=== PATIENT | female | born 2000 | race Caucasian/White ===

== ENCOUNTER 2023-12-10 11:46 | Emergency (ER) | payer BC, SELFPAY ==
[2023-12-10 11:49] VITALS: BP 109/69; PULSE 105; RESP 16; TEMP 36.7; O2SAT 100
--- NOTE | 2023-12-10 12:15 | ED.GENADUL_ITS ---
Discharge Plan Discharge Details Chief Complaint: FlankPain Primary Care Provider: Óscar Mccartney ED Provider: Óscar Mccartney Home Meds and New Rx's Prescriptions: New cefpodoxime 200 mg tablet 200 mg PO BID 10 Days Qty: 20 0RF Rx Instructions: must administer with a meal/food No Action lorazepam [Ativan] 0.5 mg tablet 0.5 mg PO BID PRN lisdexamfetamine [Vyvanse] 40 mg capsule 120 mg PO DIRECTED eszopiclone [Lunesta] 1 mg tablet 1 mg PO ONCE Discharge Instructions Instructions: Cefpodoxime HPI General Date/Time Provider Initiated Documentation: 12/10/23 11:59 . HPI Narrative: 23 year-old female presents to ED today by POV/ambulating with a chief complaint of L flank/LUQ severe pain with onset noted everyday for a month- worse with coughing. Quality described as severe tenderness, worse with movement, no radiation to chest pain, hemoptysis, tachycardia, nausea vomiting, bowel or urinary changes, endorses feeling a fullness in the left flank when her bladder is full, denies fever, denies odor or discharge, denies vaginal pain. Severity is described as severe. Palliating factors include OTC analgesics not helping. Provoking factors include nothing specific. Events leading up to the incident/Associated Symptoms: Patient endorses a history of frequent kidney infections growing up, does not take hormonal control. Patient not anticoagulated. Related Data Home Medications ?Medication ?Instructions ?Recorded ?Confirmed lisdexamfetamine 40 mg capsule 120 mg PO DIRECTED 12/04/23 12/10/23 (Vyvanse) lorazepam 0.5 mg tablet (Ativan) 0.5 mg PO BID PRN 12/04/23 12/10/23 cefpodoxime 200 mg tablet 200 mg PO BID 10 days #20 tabs 12/10/23 eszopiclone 1 mg tablet (Lunesta) 1 mg PO ONCE 12/10/23 12/10/23 Previous Rx's ?Medication ?Instructions ?Recorded cefpodoxime 200 mg tablet 200 mg PO BID 10 days #20 tabs 12/10/23 Allergies Allergy/AdvReac Type Severity Reaction Status Date / Time Sulfa (Sulfonamide Allergy Skin Rash Verified 12/10/23 11:53 Antibiotics) tramadol Allergy Nausea Verified 12/10/23 11:53 General Stated Complaint: FlankPain DOMINIQUE: 3 Review of Systems All systems reviewed & are unremarkable except as noted in HPI and below Exam Narrative Exam Narrative: GENERAL APPEARANCE: Well-nourished, non-toxic, awake and alert, atraumatic, no acute distress. SKIN: Warm, pink, dry, intact, without rashes/lesions/ulcerations. HEAD: Normocephalic, atraumatic, normal hair distribution for gender/age. EYES: Normal conjunctiva, no exudates on lids/lashes. ENT: Nares patent, no circumoral cyanosis, no facial swelling NECK: Supple, trachea midline, painless cervical ROM. LUNGS/CHEST: Lungs CTA bilaterally- no rhonchi/rales/wheezes diffusely, non- labored respirations, normal A/P diameter, symmetrical expansion, no chest wall deformity HEART (CV/PV): Regular rate and rhythm without murmur, no peripheral edema, no JVD. ABDOMEN: Soft, non-distended, no guarding, LUQ and LLQ severe exquisite tenderness with left CVA tenderness to percussion. MSK: Normal ROM, no swelling/deformity to bilateral UEs or LEs, moving all extremities without weakness, no cyanosis, spine midline without tenderness, normal curvature. NEURO: Mental Status AAOx4 - alert to person, place, time, events No facial droop, no forehead involvement. Motor: No focal weakness - strength 5/5 in bilateral UEs and LEs, proximal and distal, symmetric. Sensory: sensation intact to light touch globally. Gait normal: patient ambulated without ataxia into ED room. PSYCH: euthymic, cooperative, pleasant, appropriate speech Course Vital Signs Vital signs: Vital Signs Temperature 36.7 C 12/10/23 11:49 Pulse 105 H 12/10/23 11:49 Respiratory Rate 16 12/10/23 11:49 Blood Pressure 109/69 12/10/23 11:49 Pulse Oximetry 100 12/10/23 11:49 Temperature 36.7 C 12/10/23 11:49 Pulse 105 H 12/10/23 11:49 Respiratory Rate 16 12/10/23 11:49 Respiratory Effort Normal 12/10/23 11:52 Blood Pressure 109/69 12/10/23 11:49 Pulse Oximetry 100 12/10/23 11:49 Oxygen Delivery Method Room Air 12/10/23 11:49 Oxygen Flow Rate 0 12/10/23 11:49 Pain Level 3 12/10/23 11:49 Medical Decision Making This dictation utilizes [id number] dictation software and may contain unedited grammatical errors. 23 year-old female presents to ED today by POV/ambulating with a chief complaint of L flank/LUQ severe pain with onset noted everyday for a month- worse with coughing. Quality described as severe tenderness, worse with movement, no radiation to chest pain, hemoptysis, tachycardia, nausea vomiting, bowel or urinary changes, endorses feeling a fullness in the left flank when her bladder is full, denies fever, denies odor or discharge, denies vaginal pain. Severity is described as severe. Palliating factors include OTC analgesics not helping. Provoking factors include nothing specific. Events leading up to the incident/Associated Symptoms: Patient endorses a history of frequent kidney infections growing up, does not take hormonal control. Patients' medical history: Migraine, GERD, anxiety, history of cholecystectomy. Family and social history: Noncontributory. Pertinent exam findings / vital signs include left CVA tenderness to percussion, left upper quadrant exquisite tenderness, left lower quadrant exquisite tenderness, no Rovsing's, no referred tenderness, negative Dudley sign, benign cardiopulmonary status, neuro intact. Differential / pathologies of concern include renal colic, pyelonephritis, UTI, inflammatory bowel disease, abdominal wall muscle strain, PE. Diagnostic studies of: -CBC, CMP, D-dimer, lipase, procalcitonin, lactate, Upreg, UA, CT renal colic without contrast. -CBC is benign with no leukocytosis, no anemia -D-dimer negative, do not suspect PE -Lactate negative, procalcitonin negative-do not suspect sepsis -CMP shows normal renal function, no other acute abnormalities -Lipase negative -CT renal shows no acute abnormality --discussed with patient, she would like CT w contrast due to exquisite tenderness, added prior to sign-out Interventions of: -IV Tylenol, Toradol, Zofran, IVF. ED Course/Assessment/Plan: 23-year-old female presents with exquisite left-sided abdominal tenderness and flank pain with history of kidney infections subjectively. Her labs are very reassuring for no acute infectious etiology, she does have severe exquisite tenderness in the left abdomen and lower ribs, PE is not suspected due to low risk on Wells score and a negative D-dimer, I do suspect she has costochondritis or an abdominal wall muscle strain but the patient states this pain is severe and daily and has not abated with any rest or conservative treatments. I plan to prescribe her cefpodoxime in case she develops further flank pain especially with fever, trial of cyclobenzaprine to go, patient signed out to oncoming provider Shama Perez PA-C at time of signout a CT with contrast pending. Findings not consistent with [ ]. Disposition of [ ]. Patient verbalized understanding of the plan and return to ED criteria and engaged in shared decision making. Medical Records Medical records reviewed: Yes I reviewed the patient's medical records. Imaging Data Radiologic Study: Attestation: I personally reviewed and interpreted this imaging study as follows: Imaging: CT Scan Radiologist's impression: EXAM: CT RENAL COLIC WO CLINICAL HISTORY: L flank pain. TECHNIQUE: Imaging Protocol: Axial computed tomography images with coronal and sagittal reformatted images were created and reviewed. CONTRAST MATERIAL: Noncontrast COMPARISON: No exams were available for comparison FINDINGS: ABDOMEN: Lung Bases: Normal where visualized. Liver: Normal attenuation. No measurable mass. Gallbladder and biliary tract: Status post cholecystectomy. No radiodense calculus or dilation. Pancreas: Normal density, no calcifications or inflammatory process. Spleen: Normal. Kidneys: Normal size, contour and axis. No radiodense stones or obstructive uropathy. No masses seen. Adrenal glands: No masses seen. Abdominal Aorta: Abdominal portion non-dilated. Soft tissues: Unremarkable. PELVIS: Bladder: Symmetric distention, no gross wall thickening. No evidence of stones.No visible mass. Bowel: No obstruction or bowel wall thickening. High-density ingested material seen in cecum Reproductive: Unremarkable. Peritoneal cavity: No ascites, collection or mesenteric inflammatory response. Bones: Unremarkable for age.. IMPRESSION: Unremarkable noncontrast CT scan of the abdomen and pelvis. Lab Data Lab results reviewed: Yes I reviewed the patient's lab results. Labs: Laboratory Tests Range/Units 12/10/23 12/10/23 12/10/23 12:21 12:30 13:10 WBC (4.4-10.8) 10^3/uL 5.69 RBC (3.93-5.22) 10^6/uL 4.27 Hgb (11.2-15.7) g/dL 12.9 Hct (36.0-46.0) % 39.0 MCV (80-95) fL 91 MCH (27.0-33.0) pg 30.2 MCHC (32.0-36.0) % 33.1 RDW (11.7-14.6) % 12.8 Plt Count (130-400) 10^3/uL 196 MPV (8.0-11.0) fL 9.8 Immature Gran % % 0.2 Neutrophils % % 53.2 Lymphocytes % % 40.8 Monocytes % % 4.4 Eosinophils % % 0.7 Basophils % % 0.7 Nucleated RBC % (0.0-0.3) % 0.0 Absolute Neutrophils (1.2-6.7) 10^3/uL 3.03 Absolute Lymphocytes (1.2-3.4) 10^3/uL 2.32 Absolute Monocytes (0.1-0.8) 10^3/uL 0.25 Absolute Eosinophils (0.0-0.7) 10^3/uL 0.04 Absolute Basophils (0.0-0.2) 10^3/uL 0.04 D-Dimer (<500) ng/mlFEU VBG Lactate Cancelled 0.6 L Sodium (136-145) mmol/L 140 Potassium (3.5-5.1) mmol/L 3.5 Chloride (98-107) mmol/L 104 Carbon Dioxide (21.0-32.0) mmol/L 26.8 Anion Gap (3-11) mmol/L 9.2 BUN (7-18) mg/dL 6 L Creatinine (0.55-1.02) mg/dL 0.9 Est GFR (CKD-EPI 2020) (mL/min/1.73m2) 91.55 Glucose (74-106) mg/dL 77 Calcium (8.5-10.1) mg/dL 9.5 Total Bilirubin (0.2-1.0) mg/dL 0.54 AST (15-37) U/L 12 L ALT (14-59) U/L 14 Alkaline Phosphatase (46-116) U/L 41 L Total Protein (6.4-8.2) g/dL 7.3 Albumin (3.4-5.0) g/dL 4.5 Lipase (16-77) U/L 18 Procalcitonin ng/mL < 0.1 Urine Color (Yellow) Yellow Urine Clarity (Clear) Clear Urine pH (5-8) 5.5 Ur Specific Elliott (1.005-1.025) >= 1.030 H Urine Protein (Neg-Trace) mg/dL Trace Urine Ketones (Negative) mg/dL Negative Urine Blood (Negative) Negative Urine Nitrite (Negative) Negative Urine Bilirubin (Negative) Small H Urine Urobilinogen (Up to 0.2) mg/dL 0.2 Ur Leukocyte Esterase (Negative) Negative Urine Glucose (Negative) mg/dL Negative Range/Units 12/10/23 14:56 WBC (4.4-10.8) 10^3/uL RBC (3.93-5.22) 10^6/uL Hgb (11.2-15.7) g/dL Hct (36.0-46.0) % MCV (80-95) fL MCH (27.0-33.0) pg MCHC (32.0-36.0) % RDW (11.7-14.6) % Plt Count (130-400) 10^3/uL MPV (8.0-11.0) fL Immature Gran % % Neutrophils % % Lymphocytes % % Monocytes % % Eosinophils % % Basophils % % Nucleated RBC % (0.0-0.3) % Absolute Neutrophils (1.2-6.7) 10^3/uL Absolute Lymphocytes (1.2-3.4) 10^3/uL Absolute Monocytes (0.1-0.8) 10^3/uL Absolute Eosinophils (0.0-0.7) 10^3/uL Absolute Basophils (0.0-0.2) 10^3/uL D-Dimer (<500) ng/mlFEU 281 VBG Lactate Sodium (136-145) mmol/L Potassium (3.5-5.1) mmol/L Chloride (98-107) mmol/L Carbon Dioxide (21.0-32.0) mmol/L Anion Gap (3-11) mmol/L BUN (7-18) mg/dL Creatinine (0.55-1.02) mg/dL Est GFR (CKD-EPI 2020) (mL/min/1.73m2) Glucose (74-106) mg/dL Calcium (8.5-10.1) mg/dL Total Bilirubin (0.2-1.0) mg/dL AST (15-37) U/L ALT (14-59) U/L Alkaline Phosphatase (46-116) U/L Total Protein (6.4-8.2) g/dL Albumin (3.4-5.0) g/dL Lipase (16-77) U/L Procalcitonin ng/mL Urine Color (Yellow) Urine Clarity (Clear) Urine pH (5-8) Ur Specific Elliott (1.005-1.025) Urine Protein (Neg-Trace) mg/dL Urine Ketones (Negative) mg/dL Urine Blood (Negative) Urine Nitrite (Negative) Urine Bilirubin (Negative) Urine Urobilinogen (Up to 0.2) mg/dL Ur Leukocyte Esterase (Negative) Urine Glucose (Negative) mg/dL Quality:SDOH Health Related Social Needs: No Data to Display [facility] Medical History (Updated 12/04/23 @ 13:44 by Karrie Sagastume) Eating disorder Depressive disorder Yeast infection of the vagina Thrush Syncope and collapse Suicidal intent Pharyngitis Pain in throat Nausea Migraine Medication management Initiation of Depo Provera Generalized anxiety disorder with panic attacks GERD (gastroesophageal reflux disease) Bipolar disorder Surgical History (Updated 12/04/23 @ 13:44 by Karrie Sagastume) History of wisdom tooth extraction History of cholecystectomy Family History (Updated 12/04/23 @ 14:14 by Karrie Sagastume) Mother Depression History of heart valve repair Migraine Father Depression Sister Migraine Social History (Updated 12/04/23 @ 14:13 by Karrie Sagastume) Smoking risk assessment performed?: No Alcohol Intake: current Alcohol Intake frequency: a few times a month Substance use type: marijuana
--- NOTE | 2023-12-10 12:15 | DI.CT_ITS ---
Exam(s) CT RENAL COLIC WO EXAM: CT RENAL COLIC WO CLINICAL HISTORY: L flank pain. TECHNIQUE: Imaging Protocol: Axial computed tomography images with coronal and sagittal reformatted images were created and reviewed. CONTRAST MATERIAL: Noncontrast COMPARISON: No exams were available for comparison FINDINGS: ABDOMEN: Lung Bases: Normal where visualized. Liver: Normal attenuation. No measurable mass. Gallbladder and biliary tract: Status post cholecystectomy. No radiodense calculus or dilation. Pancreas: Normal density, no calcifications or inflammatory process. Spleen: Normal. Kidneys: Normal size, contour and axis. No radiodense stones or obstructive uropathy. No masses seen. Adrenal glands: No masses seen. Abdominal Aorta: Abdominal portion non-dilated. Soft tissues: Unremarkable. PELVIS: Bladder: Symmetric distention, no gross wall thickening. No evidence of stones.No visible mass. Bowel: No obstruction or bowel wall thickening. High-density ingested material seen in cecum Reproductive: Unremarkable. Peritoneal cavity: No ascites, collection or mesenteric inflammatory response. Bones: Unremarkable for age.. IMPRESSION: Unremarkable noncontrast CT scan of the abdomen and pelvis. RADIATION DOSE DELIVERED: Total DLP DATA REPOSITORY: All CT scans at this facility are submitted to the National Radiology Data Registry (NRDR) Dose Index Registry (DIR) with the [employer] (A[employer]). RADIATION OPTIMIZATION: All CT scans at this facility use at least one of these dose optimization te chniques: automated exposure control; mA and/or kV adjustment per patient size (includes targeted exa ms where dose is matched to clinical indication); or iterative reconstruction.
[2023-12-10 12:53] LABS: Bilirubin Small (Negative); Blood Negative (Negative); Clarity Clear (Clear); Glucose Negative (Negative); Ketones Negative (Negative); Leukocyte Esterase Negative (Negative); Nitrite Negative (Negative); Specific Gravity >= 1.030 (1.005-1.025); Urobilinogen 0.2 mg/dL (Up to 0.2); pH 5.5 (5-8)
[2023-12-10 13:29] LABS: Abs Immature Grans 0.01 10^3/uL (0.0-0.06); Absolute Basophil Count 0.04 10^3/uL (0.0-0.2); Absolute Eosinophil Count 0.04 10^3/uL (0.0-0.7); Absolute Lymphocyte Count 2.32 10^3/uL (1.2-3.4); Absolute Monocyte Count 0.25 10^3/uL (0.1-0.8); Absolute Neutrophil Count 3.03 10^3/uL (1.2-6.7); Basophils % 0.7 %; Eosinophils % 0.7 %; HGB 12.9 g/dL (11.2-15.7); Immature Grans % 0.2 %; Lymphocytes % 40.8 %; MCH 30.2 pg (27.0-33.0); MCHC 33.1 % (32.0-36.0); MCV 91 fL (80-95); MPV 9.8 fL (8.0-11.0); Monocytes % 4.4 %; Neutrophils % 53.2 %; Platelet Count 196 10^3/uL (130-400); RBC 4.27 10^6/uL (3.93-5.22); RDW 12.8 % (11.7-14.6); RDW-SD 42.7 fL; WBC 5.69 10^3/uL (4.4-10.8)
[2023-12-10 13:38] LABS: Lactate 0.6 mmol/L (0.9-1.7)
[2023-12-10] MEDS: ACETAMINOPHEN 1,000 MG/100 ML BTL 400 MG IVPB (13:48)
[2023-12-10] MEDS: Ketorolac 15 MG/ML VIAL IVP (13:48)
[2023-12-10] MEDS: Ondansetron 4 MG/2 ML VIAL IVP (13:48)
[2023-12-10 13:58] LABS: AST 12 U/L (15-37); Albumin 4.5 g/dL (3.4-5.0); Alkaline Phosphatase 41 U/L (46-116); Anion Gap 9.2 mmol/L (3-11); BUN 6 mg/dL (7-18); Bilirubin, Total 0.54 mg/dL (0.2-1.0); CO2 26.8 mmol/L (21.0-32.0); CREATININE 0.9 mg/dL (0.55-1.02); Chloride 104 mmol/L (98-107); Estimated GFR 91.55 (mL/min/1.73m2); Glucose 77 mg/dL (74-106); Lipase 18 U/L (16-77); Potassium 3.5 mmol/L (3.5-5.1); Sodium 140 mmol/L (136-145); Total Protein 7.3 g/dL (6.4-8.2)
[2023-12-10] MEDS: Normal Saline 1,000 ML 1000 ML IV (14:05)
[2023-12-10 14:16] LABS: Procalcitonin < 0.1 ng/mL
[2023-12-10 14:17] LABS: ALT 14 U/L (14-59); Calcium 9.5 mg/dL (8.5-10.1)
[2023-12-10 15:36] LABS: D-Dimer 281 ng/mlFEU (<500)
[2023-12-10 15:49] VITALS: BP 111/61; PULSE 74; RESP 16; TEMP 36.4; O2SAT 100
--- NOTE | 2023-12-10 15:53 | DI.CT_ITS ---
Exam(s) CT ABDOMEN PELVIS W EXAM: CT ABDOMEN PELVIS W CLINICAL HISTORY: LUQ tenderness; exquisite TECHNIQUE: Imaging Protocol: Axial computed tomography images with coronal and sagittal reformatted images were created and reviewed. CONTRAST MATERIAL: Intravenous: Omnipaque 350 Contrast volume:100 mL Oral: No COMPARISON: CT CT RENAL COLIC WO from 12/10/2023 FINDINGS: ABDOMEN: Lung Bases: Normal where visualized. Liver: Normal density. No measurable mass. Portal, Superior Mesenteric, and Splenic Veins: Unremarkable. Gallbladder and Biliary Tract: Status post cholecystectomy. No significant biliary ductal dilatation . Pancreas: Normal density, no abnormal calcifications or inflammatory process. Spleen: Normal. Adrenals: No masses seen. Kidneys: Normal size, contour and axis. No radiodense stones or obstructive uropathy. No masses seen. Abdominal Aorta: Abdominal portion non-dilated. Bowel: There is a question of mild wall thickening seen in the distal sigmoid colon (series 9 images 48-53. This may represent a colitis. There is no evidence of bowel obstruction. No evidence of anitha endicitis. Peritoneal Cavity: There is a trace amount of free fluid in the cul-de-sac which is likely physiologi c. No free air. Lymph Nodes: Within normal limits. Bones: Within normal limits for the patient's age. Soft Tissues: Unremarkable. PELVIS: Bladder: Symmetric distention, no gross wall thickening. Reproductive Organs: Unremarkable as visualized. Lymph Nodes: Within normal limits. Bones: Within normal limits for the patient's age. IMPRESSION: 1. No evidence of left nephrolithiasis or obstructive uropathy. 2. Normal appearance of the pancreas and spleen. 3. Question of mild wall thickening/colitis versus nondistended sigmoid colon. Please correlate clin ically. RADIATION DOSE DELIVERED: Total DLP DATA REPOSITORY: All CT scans at this facility are submitted to the National Radiology Data Registry (NRDR) Dose Index Registry (DIR) with the [employer] (ACR). RADIATION OPTIMIZATION: All CT scans at this facility use at least one of these dose optimization te chniques: automated exposure control; mA and/or kV adjustment per patient size (includes targeted exa ms where dose is matched to clinical indication); or iterative reconstruction.
[2023-12-10] MEDS: Normal Saline - Diluent 50 ML VIAL IJ (16:03)
[2023-12-10] MEDS: Omnipaque 350 MG/ML 100 ML BTL IJ (16:04)
--- NOTE | 2023-12-10 17:36 | W.EDPROG ---
Date of service: 12/10/23 Time of Service: 17:36 Medical Decision Making Care transition myself and Óscar Mccartney PA-C. Please see his initial note regarding history, presentation and exam. In brief, this is a pleasant 23-year-old female presenting today with chief complaint of abdominal pain. Patient reports this has been an ongoing issue for her for years. She has had large-volume weight loss. Patient also reports that her mental health has suffered from this but may also be a contributor to some of her abdominal upset. She reports that she has a history of anxiety, depression, borderline personality. She does have a very involved psychologist. Patient also reports that she has been referred for an upper endoscopy, this has not yet been scheduled. Patient also smokes large amount of weed daily, has been told that she has cannabinoid induced hyperemesis in the past. She reports that she has tried to stop in the past but this seems to only exacerbate her symptoms. She does find that warmth can be helpful with some of her symptoms. At the time I assumed care, CT was pending. Labs were largely unremarkable, she did have some bilirubin in her urine, unclear etiology as kidney function otherwise normal. CT reviewed by radiologist ABDOMEN: Lung Bases: Normal where visualized. Liver: Normal density. No measurable mass. Portal, Superior Mesenteric, and Splenic Veins: Unremarkable. Gallbladder and Biliary Tract: Status post cholecystectomy. No significant biliary ductal dilatation. Pancreas: Normal density, no abnormal calcifications or inflammatory process. Spleen: Normal. Adrenals: No masses seen. Kidneys: Normal size, contour and axis. No radiodense stones or obstructive uropathy. No masses seen. Abdominal Aorta: Abdominal portion non-dilated. Bowel: There is a question of mild wall thickening seen in the distal sigmoid colon (series 9 images 48-53. This may represent a colitis. There is no evidence of bowel obstruction. No evidence of appendicitis. Peritoneal Cavity: There is a trace amount of free fluid in the cul-de-sac which is likely physiologic. No free air. Lymph Nodes: Within normal limits. Bones: Within normal limits for the patient's age. Soft Tissues: Unremarkable. PELVIS: Bladder: Symmetric distention, no gross wall thickening. Reproductive Organs: Unremarkable as visualized. Lymph Nodes: Within normal limits. Bones: Within normal limits for the patient's age. IMPRESSION: 1. No evidence of left nephrolithiasis or obstructive uropathy. 2. Normal appearance of the pancreas and spleen. 3. Question of mild wall thickening/colitis versus nondistended sigmoid colon. Please correlate clinically. Her history is not consistent with a colitis, no bowel habit changes. More nausea, vomiting and epigastric/left upper quadrant discomfort. I discussed these findings with the patient. Will prescribe Zofran to help with her nausea. She was given a GI cocktail which did help her symptoms. I am hesitant to give her anything further for her known acid reflux as she is scheduled to have a upper endoscopy. I did encourage that she call the GI group tomorrow, if they are able to get her in soon, would hold off on medication intervention, particularly as this is an ongoing issue for her. However, if they advised that she is able to begin taking an antacid, I would increase her dosing. Encouraged follow-up with her primary care as well as psychology. I also discussed that she should look further into the cannabinoid induced hyperemesis that she does smoke large quantities of marijuana daily. As this is something she has struggled to quit in the past, discussed methods to help with symptoms and also encouraged that she discuss her MH with her psychologist and PCP further. Return precautions were discussed. Quality:SDOH Health Related Social Needs: No Data to Display Sign Out Sign Out Data: Sign Out Comment: Pending CT w/ contrast, likely muscular but patient is very tender, given cyclobenz to go, cefpodoxime with history- advised start it after a few days of voltaren/cyclobenz Last updated by Óscar Mccartney PA at 12/10/23 16:12 Discharge Plan Disposition Patient Disposition: Home Condition: Good Discharge Details Clinical Impression: Abdominal pain, GERD (gastroesophageal reflux disease), Bilirubinuria, Nausea & vomiting Primary Care Provider: Óscar Mccartney ED Provider: Shama Perez Home Meds and New Rx's Prescriptions: New cefpodoxime 200 mg tablet 200 mg PO BID 10 Days Qty: 20 0RF Rx Instructions: must administer with a meal/food ondansetron 4 mg tablet,disintegrating 4 mg PO Q6H PRN (Reason: nausea and vomiting) Qty: 14 0RF Continued lorazepam [Ativan] 0.5 mg tablet 0.5 mg PO BID PRN lisdexamfetamine [Vyvanse] 40 mg capsule 120 mg PO DIRECTED eszopiclone [Lunesta] 1 mg tablet 1 mg PO ONCE Discharge Instructions Instructions: Cefpodoxime, Acid Reflux, Adult and Adolescent ED, Cannabis hyperemesis syndrome Additional Instructions: Your labs and imaging are reassuring here today. The one abnormality that we did note was bilirubin in your urine, may want to discuss this further with your primary care. However, labs and kidney function are otherwise normal. As we discussed, your symptoms did improve after medication that generally targets to numbing the stomach lining. I am hopeful that your upcoming upper endoscopy will help to diagnose your chronic abdominal issues. Please call your GI group tomorrow to discuss beginning new antacid and likely timeline for having the upper endoscopy completed. If they feel that it is appropriate, you may try Carafate or increasing your antiacid medication. There is also concern that this may be associated with your cannabis use. As we discussed, please research cannabinoid induced hyperemesis further, you may find a topical abdominal cream such as capsaicin cream, which is available [id number], will help with some of your symptoms. I have also prescribed you Zofran which will help with any recurrent nausea/vomiting. Please continue to encourage hydration. You have been prescribed antibiotic by my coworker, Rosendo, in the event that you have recurrent urinary tract infection symptoms. I do not note any UTI in your labs at this time. If you develop fever/chills, increased pain, inability stay hydrated or other new/worsening symptom please seek care urgently once again. Please follow up with primary care in 2 weeks for reevaluation.
[2023-12-10] MEDS: Cyclobenzaprine 10 MG TAB, 3 TABS/BTL PO (18:19)
== END 2023-12-10 18:43 | disposition home or self-care (01) ==
PROVIDERS: Emergency Provider Physician Assistant; PCP Physician Assistant
DX: R05.9 Cough, unspecified (principal); R10.12 Left upper quadrant pain
CPT/HCPCS: 00123; 36415; 80053; 81025; 83690; 84145; 96361; 96365; 96375; 99285; 74176; 74177; 81003; 83605; 85025; 85379; J0131; J1885; J2405; J3490

== ENCOUNTER 2024-06-06 06:07 | Emergency (ER) | payer MEDICAID, SELFPAY ==
--- OUTSIDE RECORDS SUMMARY | 2024-06-06 06:12 | XMS_ITS | Encounter Summary ---
Author Organization [facility] Address [address] [place] [address] Care Team Providers Care Lithographic Press Operator Name Role Phone Yovanny Wilson MD Unavailable Unavailable Solange Desai PA-C Primary Care Provider [phone] [phone] Encounter Details Date Type Department Care Team (Late st Contact Info) Description 07/23/2023 Lab Requisition [facility] Pathology & Laboratory Medicine - [address] [address] Outr Resulting Lab, Provider Social History Tobacco Use Types Packs/Day Years Used Date Smoking Tobacco: Every Day Smokeless Tobacco: Never Interpersonal Safety Answer Date Record ed Physically Hurt Never 11/22/2019 Verbally Threaten Not on file 11/22/2019 Comments Unknown Sex and Gender Information Value Date Recorded Sex Assigned at Not on file Legal Sex Female 18:24 EST Gender Identity Female 09/29/2021 14:29 EDT Sexual Orientation Not on file documented as of this encounter Functional Status * Because of a physical, mental, or emotional condition, does this person have difficulty doing errands alone such as visiting a doctor's office or shopping? Answer Date of Assessment Author No 09/11/2016 13:47 EDT documented as of this encounter Mental Status * Because of a physical, mental, or emotional condition, does this person have serious difficulty concentrating, remembering, or making decisions? Answer Entry Date Author No 09/11/2016 13:47 EDT documented in this encounter Plan of Treatment Not on file documented as of this encounter Procedures Procedure Name Priority Date/Time Associated Diagnosis Comments RHEUMATOID FACTOR Routine 07/23/2023 13: 17 EDT documented in this encounter Results * RHEUMATOID FACTOR (07/23/2023 13:17 EDT) Rheumatoid Factor <8.6 <12.0 IU/mL 07/23/2023 22:29 EDT [facility] Blood VENOUS BLOOD / Unknown 07/23/2023 13:17 EDT 07/23/2023 21:34 EDT us Provider Outr Resulting Lab CHEMISTRY & BLOOD GA S ORDERABLES Final Result Performing Organization Address City/State/[facility] Co de Phone Number [facility] [address] [place] [phone] documented in this encounter Visit Diagnoses Not on filedocumented in this encounter Care Teams Lithographic Press Operator Relationship Specialty Start Date End Date Solange Desai PA-C [address] [place] [address] PCP - General Family Medicine - Primary Care 09/29/21 Yovanny Wilson MD 09/07/16 documented as of this encounter
--- OUTSIDE RECORDS SUMMARY | 2024-06-06 06:12 | XMS_ITS | Referral Summary ---
Author Organization [facility] Address [address] [place] [address] Care Team Providers Care Conference Organizer Name Role Phone Yovanny Wilson MD Unavailable Unavailable Solange Desai PA-C Primary Care Provider [phone] [phone] Encounters Date Type Department Care Team Description 05/07/2024 Lab Requisition [facility] Pathology & Laboratory [address] [address] Outr Resulting Lab, Provider 04/28/2024 Lab Requisition [facility] Pathology & Laboratory [facility] [address] [place] [address] Outr Resulting Lab, Provider from Last 3 Months Allergies Active Allergy Reactions Criticality Noted Date Comments Haloperidol Lactate Anxiety 09/29/2021 Akathisia that improved with diphenhydramine Sulfa (Sulfonamide Antibiotics) 09/11/2016 Medications SUMAtriptan (IMITREX) 5 mg/actuation nasal spray Instill 5 mg into right nostril once as needed. Active ondansetron (ZOFRAN) 4 mg tablet Take 8 mg by mouth every 8 hours as needed for Nausea. Active omeprazole (PRILOSEC) 40 mg capsuleIndicatio ns:Diarrhea, unspecified type,Non-intract able vomiting with nausea, unspecified vomiting type Take 1 Cap by mouth daily. 90 Cap 2 Active Additional Information Patient not taking.Reported on 09/23/2020 doxycycline (VIBRA-TABS) 100 mg tablet Take 100 mg by mouth 2 times daily. Active promethazine (PHENERGAN) 25 mg tablet Take 25 mg by mouth every 8 hours as needed for Nausea. Active metroNIDAZOLE (FLAGYL) 250 mg tablet Take 500 mg by mouth 2 times daily. Active Active Problems Problem Noted Date Diagnosed Date Migraine without aura and wi thout status migrainosus, not intractable 09/11/2016 Blackout spell 09/11/2016 Social History Tobacco Use Types Packs/Day Years Used Date Smoking Tobacco: Every Day Smokeless Tobacco: Never Interpersonal Safety Answer Date Record ed Physically Hurt Never 11/22/2019 Verbally Threaten Not on file 11/22/2019 Comments Unknown Sex and Gender Information Value Date Recorded Sex Assigned at Not on file Legal Sex Female 18:24 EST Gender Identity Female 09/29/2021 14:29 EDT Sexual Orientation Not on file Last Filed Vital Signs Vital Sign Reading Time Taken Comments Blood Pressure 114/65 09/29/20211910 EDT Pulse 87 09/29/20211910 EDT Temperature 36.6 ??C (97.9 ??F) 09/29/2021 191 EDT Respiratory Rate 14 09/29/20211910 EDT Oxygen Saturation 96% 09/29/20211910 EDT Inhaled Oxygen Concentration - - Weight 56.6 kg (124 lb 12.8 oz) 09/29/2021 1325 EDT Height 152.4 cm (5') 09/29/2021 1325 EDT Body Mass Index 24.37 09/29/2021 1325 EDT Functional Status * Because of a physical, mental, or emotional condition, does this person have difficulty doing errands alone such as visiting a doctor's office or shopping? Answer Date of Assessment Author No 09/11/2016 13:47 EDT Mental Status * Because of a physical, mental, or emotional condition, does this person have serious difficulty concentrating, remembering, or making decisions? Answer Entry Date Author No 09/11/2016 13:47 EDT Plan of Treatment Not on file Procedures Procedure Name Priority Date/Time Associated Diagnosis Comments CHLAMYDIA/N. GONORRHOEAE AMPLIFIED NUCLEIC ACID Routine 05/07/2024 13:37 EST HEPATITIS C AB W REFLEX TO HCV RNA BY PCR Routine 04/28/2024 13:05 EST HIV 1/2 ANTIGEN AND ANTIBODY, 4TH GENERATION Routine 04/28/2024 13:05 EST SYPHILIS SEROLOGY Routine 04/28/2024 13: 05 EST RUBELLA IGG ANTIBODY Routine 04/28/2024 13:05 EST HEPATITIS B SURFACE ANTIGEN Routine 04/28/2024 13:05 EST from Last 3 Months Results * CHLAMYDIA/N. GONORRHOEAE AMPLIFIED NUCLEIC ACID (05/07/2024 13:37 EST) Neisseria gonorrhoeae Result Negative Negative 05/08/2024 11:54 EST [facility] Chlamydia trachomatis Result Negative Negative 05/08/2024 11:54 EST [facility] Swab VAGINAL STRUCTURE / Unknown 05/07/2024 13:37 EST 05/07/2024 21:38 EST us Provider Outr Resulting Lab MICROBIOLOGY - GENER AL ORDERABLES Final Result Performing Organization Address City/[facility]/ZIP Co de Phone Number [facility] [address] [place] [address] * SYPHILIS SEROLOGY (04/28/2024 13:05 EST) Syphilis Serology Negative Negative 04/29/2024 11:03 EST [facility] Blood VENOUS BLOOD / Unknown 04/28/2024 13:05 EST 04/28/2024 23:35 EST us Provider Outr Resulting Lab IMMUNOLOGY AND SEROL OGY ORDERABLES Final Result [facility] [address] [place] [address] * HEPATITIS C AB W REFLEX TO HCV RNA BY PCR (04/28/2024 13:05 EST) Hep C Antibody Negative Negative 04/29/2024 10:15 EST [facility] Blood VENOUS BLOOD / Unknown 04/28/2024 13:05 EST 04/28/2024 23:35 EST us Provider Outr Resulting Lab CHEMISTRY & BLOOD GA S ORDERABLES Final Result Performing Organization Address City/[facility]/ZIP Co de Phone Number [facility] [address] [place] [address] * RUBELLA IGG ANTIBODY (04/28/2024 13:05 EST) Rubella IgG Ab Positive See Note 04/29/2024 10:54 EST [facility] Comment:Positive for IgG ant ibodies to Rubella virus. Blood VENOUS BLOOD / Unknown 04/28/2024 13:05 EST 04/28/2024 23:35 EST us Provider Outr Resulting Lab CHEMISTRY & BLOOD GA S ORDERABLES Final Result [facility] [address] [place] [address] * HEPATITIS B SURFACE ANTIGEN (04/28/2024 13:05 EST) Hep B Surface Ag Negative Negative 04/29/2024 9:45 EST [facility] Blood VENOUS BLOOD / Unknown 04/28/2024 13:05 EST 04/28/2024 23:35 EST us Provider Outr Resulting Lab CHEMISTRY & BLOOD GA S ORDERABLES Final Result Performing Organization Address City/[facility]/ZIP Co de Phone Number [facility] [address] [place] [address] * HIV 1/2 ANTIGEN AND ANTIBODY, 4TH GENERATION (04/28/2024 13:05 EST) HIV 1 and 2 Antibody/p24 Antigen, 4th Generation Negative Negative 04/29/2024 10:16 EST [facility] Comment:If acute HIV-1 infec tion is suspected in a high risk patient, submit plasma specimen for HIV-1 RNA quantitation test. Blood VENOUS BLOOD / Unknown 04/28/2024 13:05 EST 04/28/2024 23:35 EST Narrative [facility] - 04/29/2024 10:16 EST Fourth Generation assay performed on the Siemens Centaur XPT. us Provider Outr Resulting Lab IMMUNOLOGY AND SEROL OGY ORDERABLES Final Result [facility] [address] [place] [address] from Last 3 Months [place] Care Teams Conference Organizer Relationship Specialty Start Date End Date Solange Desai PA-C [address] [place] [address] PCP - General Family Medicine - Primary Care 09/29/21 Yovanny Wilson MD 09/07/16
--- OUTSIDE RECORDS SUMMARY | 2024-06-06 06:12 | XMS_ITS | Encounter Summary ---
Author Organization [facility] Address [address] [place] [address] Care Team Providers Care Landing Signal Officer Name Role Phone Yovanny Wilson MD Unavailable Unavailable Solange Desai PA-C Primary Care Provider [phone] Encounter Details Date Type Department Care Team (Late st Contact Info) Description 04/28/2024 Lab Requisition [facility] Pathology & Laboratory Medicine - [address] [address] Outr Resulting Lab, Provider Social History Tobacco [...] Procedure Name Priority Date/Time Associated Diagnosis Comments SYPHILIS SEROLOGY Routine 04/28/2024 13: 05 EST HEPATITIS C AB W REFLEX TO HCV RNA BY PCR Routine 04/28/2024 13:05 EST RUBELLA IGG ANTIBODY Routine 04/28/2024 13:05 EST HEPATITIS B SURFACE ANTIGEN Routine 04/28/2024 13:05 EST HIV 1/2 ANTIGEN AND ANTIBODY, 4TH GENERATION Routine 04/28/2024 13:05 EST documented in this encounter Results * HEPATITIS C AB W REFLEX TO HCV RNA BY PCR (04/28/2024 13:05 EST) Hep C Antibody Negative Negative 04/29/2024 10:15 EST [facility] Blood VENOUS BLOOD / Unknown 04/28/2024 13:05 EST 04/28/2024 23:35 EST us Provider Outr Resulting Lab CHEMISTRY & BLOOD GA S ORDERABLES Final Result [facility] [address] [place] [address] * HIV 1/2 ANTIGEN AND ANTIBODY, 4TH GENERATION (04/28/2024 13:05 EST) HIV 1 and 2 Antibody/p24 Antigen, 4th Generation Negative Negative 04/29/2024 10:16 EST [facility] Comment:If acute HIV-1 infec tion is suspected in a high risk patient, submit plasma specimen for HIV-1 RNA quantitation test. Blood VENOUS BLOOD / Unknown 04/28/2024 13:05 EST 04/28/2024 23:35 EST Narrative [facility] - 04/29/2024 10:16 EST Fourth Generation assay performed on the Siemens Centaur XPT. us Provider Outr Resulting Lab IMMUNOLOGY AND SEROL OGY ORDERABLES Final Result [facility] [address] [place] [address] * SYPHILIS SEROLOGY (04/28/2024 13:05 EST) Syphilis Serology Negative Negative 04/29/2024 11:03 EST [facility] Blood VENOUS BLOOD / Unknown 04/28/2024 13:05 EST 04/28/2024 23:35 EST us Provider Outr Resulting Lab IMMUNOLOGY AND SEROL OGY ORDERABLES Final Result Performing Organization Address [facility]/ZIP Co de Phone Number [facility] [address] [place], [place] [phone] * RUBELLA IGG ANTIBODY (04/28/2024 13:05 EST) Rubella IgG Ab Positive See Note 04/29/2024 10:54 EST [facility] Comment:Positive for IgG ant ibodies to Rubella virus. Blood VENOUS BLOOD / Unknown 04/28/2024 13:05 EST 04/28/2024 23:35 EST us Provider Outr Resulting Lab CHEMISTRY & BLOOD GA S ORDERABLES Final Result Performing Organization Address [facility]/ZIP Co de Phone Number [facility] [address] [place] [id number] * HEPATITIS B SURFACE ANTIGEN (04/28/2024 13:05 EST) Hep B Surface Ag Negative Negative 04/29/2024 9:45 EST [facility] Blood VENOUS BLOOD / Unknown 04/28/2024 13:05 EST 04/28/2024 23:35 EST us Provider Outr Resulting Lab CHEMISTRY & BLOOD GA S ORDERABLES Final Result Performing Organization Address City/[facility]/ZIP Co de Phone Number [facility] [address] [place] [address] documented in this encounter Visit Diagnoses Not on filedocumented in this encounter Care Teams Landing Signal Officer Relationship Specialty Start Date End Date Solange Desai PA-C [address] [place] [address] PCP - General Family Medicine - Primary Care 09/29/21 Yovanny Wilson MD 09/07/16 documented as of this encounter
--- OUTSIDE RECORDS SUMMARY | 2024-06-06 06:12 | XMS_ITS | Clinical Summary ---
Author Organization [facility] Address [address] [place] [address] Care Team Providers Care Collections Representative Name Role Phone Yovanny Wilson MD Unavailable Unavailable Solange Desai PA-C Primary Care Provider [phone] Allergies Active Allergy Reactions Criticality Noted Date [...] migrainosus, not intractable 09/11/2016 Blackout spell 09/11/2016 Encounters Date Type Department Care Team Description 05/07/2024 Lab Requisition [facility] Pathology & Laboratory [address] [address] Outr Resulting Lab, Provider 04/28/2024 Lab Requisition [facility] Pathology & Laboratory [address] [address] Outr Resulting Lab, Provider from Last 3 Months Social History Tobacco Use Types Packs/Day Years Used Date Smoking Tobacco: Every Day Smokeless Tobacco: Never Interpersonal Safety Answer Date Record ed Physically Hurt Never 11/22/2019 Verbally Threaten Not on file 11/22/2019 Comments Unknown Sex and Gender Information Value Date Recorded Sex Assigned at Not on file Legal Sex Female 18:24 EST Gender Identity Female 09/29/2021 14:29 EDT Sexual Orientation Not on file Obstetrics History Last Filed Vital Signs Vital Sign Reading Time Taken Comments Blood Pressure 114/65 09/29/20211910 EDT Pulse 87 09/29/2021 191 EDT Temperature 36.6 ??C (97.9 ??F) 09/29/2021 191 EDT Respiratory Rate 14 09/29/2021 191 EDT Oxygen Saturation 96% 09/29/20211910 EDT Inhaled Oxygen Concentration - - Weight 56.6 kg (124 lb 12.8 oz) 09/29/2021 1325 EDT Height 152.4 cm (5') 09/29/2021 1325 EDT Body Mass Index 24.37 09/29/2021 1325 EDT Plan of Treatment Health Maintenance Due Date Last Done Comments Pneumococcal Immunization (1 of 2 - PCV) 11/12/2005 Hepatitis B Vaccine (1 of 3 - 19+ 3-dose series) 11/12 COVID-19 Vaccine ( season) 2023 Hepatitis C Screen Completed 04/28/2024 Procedures Procedure Name Priority Date/Time Associated Diagnosis [...] gonorrhoeae Result Negative Negative 05/08/2024 11:54 EST [facility] Chlamydia trachomatis Result Negative Negative 05/08/2024 11:54 EST [facility] Swab VAGINAL STRUCTURE / Unknown 05/07/2024 13:37 EST 05/07/2024 21:38 EST us Provider Outr Resulting Lab MICROBIOLOGY - GENER AL ORDERABLES Final Result Performing Organization Address City/[facility]/ZIP Co de Phone Number [facility] [address] [place] [address] * SYPHILIS SEROLOGY (04/28/2024 13:05 EST) Syphilis Serology Negative Negative 04/29/2024 11:03 EST [facility] Blood VENOUS BLOOD / Unknown 04/28/2024 13:05 EST 04/28/2024 23:35 EST us Provider Outr Resulting Lab IMMUNOLOGY AND SEROL OGY ORDERABLES Final Result [facility] [address] [place] [address] * HEPATITIS C AB W REFLEX TO HCV RNA BY PCR (04/28/2024 13:05 EST) Hep C Antibody Negative Negative 04/29/2024 10:15 EST [facility] Blood VENOUS BLOOD / Unknown 04/28/2024 13:05 EST 04/28/2024 23:35 EST us Provider Outr Resulting Lab CHEMISTRY & BLOOD GA S ORDERABLES Final Result Performing Organization Address [facility]/ZIP Co de Phone Number [facility] [address] [place], [place] [phone] * RUBELLA IGG ANTIBODY (04/28/2024 13:05 EST) Rubella IgG Ab Positive See Note 04/29/2024 10:54 EST [facility] Comment:Positive for IgG ant ibodies to Rubella virus. Blood VENOUS BLOOD / Unknown 04/28/2024 13:05 EST 04/28/2024 23:35 EST us Provider Outr Resulting Lab CHEMISTRY & BLOOD GA S ORDERABLES Final Result Performing Organization Address [facility] Co de Phone Number [facility] [address] [place] [address] * HEPATITIS B SURFACE ANTIGEN (04/28/2024 13:05 EST) Hep B Surface Ag Negative Negative 04/29/2024 9:45 EST [facility] Blood VENOUS BLOOD / Unknown 04/28/2024 13:05 EST 04/28/2024 23:35 EST us Provider Outr Resulting Lab CHEMISTRY & BLOOD GA S ORDERABLES Final Result Performing Organization Address [facility]/ZIP Co de Phone Number [facility] [address] [place], [place] [phone] * HIV 1/2 ANTIGEN AND ANTIBODY, 4TH GENERATION (04/28/2024 13:05 EST) HIV 1 and 2 Antibody/p24 Antigen, 4th Generation Negative Negative 04/29/2024 10:16 EST [facility] Comment:If acute HIV-1 infec tion is suspected in a high risk patient, submit plasma specimen for HIV-1 RNA quantitation test. Blood VENOUS BLOOD / Unknown 04/28/2024 13:05 EST 04/28/2024 23:35 EST Narrative [facility] - 04/29/2024 10:16 EST Fourth Generation assay performed on the Siemens Centaur XPT. us Provider Outr Resulting Lab IMMUNOLOGY AND SEROL OGY ORDERABLES Final Result [facility] [address] [place] [address] from Last 3 Months [place] [id number] , [place] [id number] , [place] [id number] Care Teams Collections Representative Relationship Specialty Start Date End Date Solange Desai PARandyC [address] [place] [address] PCP - General Family Medicine - Primary Care 09/29/21 Yovanny Wilson MD 09/07/16
--- OUTSIDE RECORDS SUMMARY | 2024-06-06 06:12 | XMS_ITS | Encounter Summary ---
Author Organization [facility] [place] [address] Care Team Providers Care Terminal Gauger Supervisor Name Role Phone Unavailable Primary Care Provider Unavailabl e Encounter Details Date Type Department Care Team (Late st Contact Info) Description 01/07/2024 6:30 AM EDT Ancillary Procedure Radiology Library at [facility] [place] [phone] Unknown None Social History Tobacco Use Types Packs/Day Years Used Date Smoking Tobacco: Never Assessed Sex and Gender Information Value Date Recorded Sex Assigned at Not on file Gender Identity Not on file Sexual Orientation Not on file documented as of this encounter Plan of Treatment Not on file documented as of this encounter Procedures Procedure Name Priority Date/Time Associated Diagnosis Comments FILM LIBRARY STORAGE ONLY CT ABDOMEN AND PELVIS Routine 01/07/2024 6:30 AM EDT documented in this encounter Results * Film Library- Storage Only CT Abdomen & Pelvis (01/07/2024 6:30 AM EDT) 01/22/2024 4:15 PM EDT Narrative JULIO - 01/22/2024 4:16 PM EDT This exam is auto-finalizing. It's purpose is for storage only. Unknown IMG FILM LIBRARY ORD ERABLES JULIO Delgado [place] documented in this encounter Visit Diagnoses Not on filedocumented in this encounter
--- OUTSIDE RECORDS SUMMARY | 2024-06-06 06:12 | XMS_ITS | Encounter Summary ---
Author Organization [facility] Address [address] [place] [address] Care Team Providers Care Fsr Name Role Phone Yovanny Wilson MD Unavailable Unavailable Solange Desai PA-C Primary Care Provider [phone] Encounter Details Date Type Department Care Team (Late st Contact Info) Description 01/15/2024 Lab Requisition [facility] Pathology & Laboratory Medicine - [address] [address] Outr Resulting Lab, Provider Social History Tobacco [...] Procedure Name Priority Date/Time Associated Diagnosis Comments VAGINAL CTGC AND VAGINITIS/VAGINOSIS MOLECULAR DETECTION Routine 01/15/2024 16:19 EDT documented in this encounter Results * VAGINAL CTGC AND VAGINITIS/VAGINOSIS MOLECULAR DETECTION (01/15/2024 16:19 EDT) Simin glabrata Negative Negative 01/17/2024 14:41 EDT [facility] Trichomonas Vaginalis Negative Negative 01/17/2024 14:41 EDT [facility] BV (Bacterial vaginosis) Negative Negative 01/17/2024 14:41 EDT [facility] Neisseria gonorrhoeae Result Negative Negative 01/17/2024 14:41 EDT [facility] Chlamydia trachomatis Result Negative Negative 01/17/2024 14:41 EDT [facility] Simin Species Negative Negative 14:41 EDT [facility] Swab VAGINAL STRUCTURE / Unknown 01/15/2024 16:19 EDT 01/16/2024 22:24 EDT us Provider Outr Resulting Lab MICROBIOLOGY - GENER AL ORDERABLES Final Result [facility] [address] [place], [place] [phone] documented in this encounter Visit Diagnoses Not on filedocumented in this encounter Care Teams Fsr Relationship Specialty Start Date End Date Solange Desai PA-C [address] [place] [address] PCP - General Family Medicine - Primary Care 09/29/21 Yovanny Wilson MD 09/07/16 documented as of this encounter
--- OUTSIDE RECORDS SUMMARY | 2024-06-06 06:12 | XMS_ITS | Encounter Summary ---
Author Organization [facility] [place] [address] Care Team Providers Care Psychologists Name Role Phone Unavailable Primary Care Provider Unavailabl e Encounter Details Date Type Department Care Team (Late st Contact Info) Description 01/07/2024 Interpretation Only Radiology Library at [facility] [place] [phone] Unknown None Social History Tobacco Use Types [...] AM EDT) 01/22/2024 4:15 PM EDT Narrative ANDRIY Padilla 01/22/2024 4:16 PM EDT This exam is auto-finalizing. It's purpose is for storage only. Unknown IMG FILM LIBRARY ORD ERABLES [place] documented in this encounter Visit Diagnoses Not on filedocumented in this encounter
--- OUTSIDE RECORDS SUMMARY | 2024-06-06 06:12 | XMS_ITS | Clinical Summary ---
Author Organization [facility] [place] [address] Care Team Providers Care Papier Mache' Molder Name Role Phone Sania Mahoney Primary Care Provider + Social History Tobacco Use Types Packs/Day Years Used Date Smoking Tobacco: Never Assessed Sex and Gender Information Value Date Recorded Sex Assigned at Not on file Gender Identity Not on file Sexual Orientation Not on file Plan of Treatment Health Maintenance Due Date Last Done Comments Chlamydia Screening 11/12/2014 HPV vaccine (1 - 3-dose series) 11/12/2014 HIV screen 11/12/2017 Hepatitis C Screening 11/12/2017 Hepatitis B vaccine (0-59 yrs) (1) 11/12/2018 Tetanus/Diphtheria/Pertussis Vaccines (1 - Tdap) 11/12/2018 PAP Smear 11/12/2020 Covid-19 Vaccine (3 - 2023- season) 2023, 09/21/2020 Influenza (Flu) vaccine (1 o f 1 - Influenza standard series) 12/22/2023 Care Teams Papier Mache' Molder Relationship Specialty Start Date End Date Sania Mahoney PA [address] [place] [address] [place] [address] PCP - General Internal Medicine 02/04/24
--- OUTSIDE RECORDS SUMMARY | 2024-06-06 06:12 | XMS_ITS | Encounter Summary ---
[place] [address] Care Team Providers Care Assistant Auditor Name Role Phone Sania Mahoney Primary Care Provider + Reason for Referral * Consultation (Routine) - Closed Specialty Diagnoses / Procedures Referred By Contac t Referred To Contact Gastroenterology Diagnoses Vomiting, unspecified vomiting type, unspecified whether nausea present CHRONIC N/V AND ABDM PAIN, ABNORMAL CT ABD/PEL. LIVER;INTERVAL APPEARANCE OF PERIPORTAL EDEMA. 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 Sania Mahoney PA [address] [place] [address] [place] [address] [facility] [address] [place] [address] Referral ID Status Reason Start Date Expiration Date V isits Requested Visits Authorized [id number] Closed Consult, Test & Treat PCP Updated and/or Approved 01/15/2024 07/14/2024 6 6 Encounter Details Date Type Department Care Team (Late st Contact Info) Description 02/04/2024 Transcribe Orders eDH Incoming Referrals [phone] Sania Mahoney PA [address] [place] [address] [address] [place], [place] [id number] Vomiting, unspecified vomiting type, unspecified whether nausea present Social History Tobacco Use Types Packs/Day Years Used Date Smoking Tobacco: Never Assessed Sex and Gender Information Value Date Recorded Sex Assigned at Not on file Gender Identity Not on file Sexual Orientation Not on file documented as of this encounter Plan of Treatment Scheduled Referrals Name Type Priority Associated Diagnoses Order Schedule Referral to Gastroenterology Outpatient Referral Routine Vomiting, unspecified vomiting type, unspecified whether nausea present Ordered: 02/04/2024 documented as of this encounter Visit Diagnoses Diagnosis Vomiting, unspecified vomiting type, unspecified whether nausea present documented in this encounter Care Teams Assistant Auditor Relationship Specialty Start Date End Date Sania Mahoney PA [address] [place] [address] [place] [address] PCP - General Internal Medicine 02/04/24 documented as of this encounter
--- OUTSIDE RECORDS SUMMARY | 2024-06-06 06:12 | XMS_ITS | Encounter Summary ---
Author Organization [facility] Address [address] [place] [address] Care Team Providers Care Program Technician Name Role Phone Yovanny Wilson MD Unavailable Unavailable Solange Desai PA-C Primary Care Provider [phone] Encounter Details Date Type Department Care Team (Late st Contact Info) Description 11/22/2023 Lab Requisition [facility] Pathology & Laboratory Medicine - [address] [address] Outr Resulting Lab, Provider Social History Tobacco [...] Procedure Name Priority Date/Time Associated Diagnosis Comments AMPHETAMINE CONFIRMATION PANEL Routine 11/22/2023 14:48 EDT documented in this encounter Results * (ABNORMAL) AMPHETAMINE CONFIRMATION PANEL (11/22/2023 14:48 EDT) Amphetamine Confirmation >2000(A) <100 ng/mL 11/26/2023 14:37 EDT [facility] Methamphetamine Confirmation Negative <100 ng/mL 11/26/2023 14:37 EDT [facility] Urine URINE / Unknown 11/22/2023 1 4:48 EDT 11/22/2023 21:35 EDT Narrative [facility] - 11/26/2023 14:37 EDT Testing performed by: [facility] [address] [place] [address], [facility] [address] [address] Department Secretary: [place] MD; CLIA # [id number] us Provider Outr Resulting Lab GEN LAB UNIT COLLECT ORDERABLES Final Result [facility] [address] [place] [address], [facility] [address] [place] [address], [facility] [phone] documented in this encounter Visit Diagnoses Not on filedocumented in this encounter Care Teams Program Technician Relationship Specialty Start Date End Date Solange Desai PA-C [address] [place] [address] PCP - General Family Medicine - Primary Care 09/29/21 Yovanny Wilson MD 09/07/16 documented as of this encounter
--- OUTSIDE RECORDS SUMMARY | 2024-06-06 06:12 | XMS_ITS | Encounter Summary ---
Author Organization [facility] Address [address] [place] [address] Care Team Providers Care Air Pollution Specialist Name Role Phone Yovanny Wilson MD Unavailable Unavailable Solange Desai PA-C Primary Care Provider [phone] Encounter Details Date Type Department Care Team (Late st Contact Info) Description 05/07/2024 Lab Requisition [facility] Pathology & Laboratory Medicine - [address] [address] Outr Resulting Lab, Provider Social History Tobacco [...] AMPLIFIED NUCLEIC ACID Routine 05/07/2024 13:37 EST documented in this encounter Results * CHLAMYDIA/N. GONORRHOEAE AMPLIFIED NUCLEIC ACID (05/07/2024 13:37 EST) Neisseria gonorrhoeae Result Negative Negative 05/08/2024 11:54 EST [facility] Chlamydia trachomatis Result Negative Negative 05/08/2024 11:54 EST [facility] Swab VAGINAL STRUCTURE / Unknown 05/07/2024 13:37 EST 05/07/2024 21:38 EST us Provider Outr Resulting Lab MICROBIOLOGY - GENER AL ORDERABLES Final Result [facility] [address] [place] [address] documented in this encounter Visit Diagnoses Not on filedocumented in this encounter Care Teams Air Pollution Specialist Relationship Specialty Start Date End Date Solange Desai PA-C [address] [place] [address] PCP - General Family Medicine - Primary Care 09/29/21 Yovanny Wilson MD 09/07/16 documented as of this encounter
--- OUTSIDE RECORDS SUMMARY | 2024-06-06 06:13 | XMS_ITS | Encounter Summary ---
Author Organization [facility] Address [address] [place] [address] Care Team Providers Care Gauge Checker Name Role Phone Unavailable Primary Care Provider Unavailabl e Encounter Details Date Type Department Care Team (Late st Contact Info) Description 09/19/2001 Results Only [facility] - [address] [id number] Brittany Alberto MD [address] [place] [phone] Social History Tobacco Use Types Packs/Day Years Used Date Smoking Tobacco: Never Assessed Comments Unknown Sex and Gender Information Value Date Recorded Sex Assigned at Not on file Legal Sex Female 18:24 EST Gender Identity Female 09/29/2021 14:29 EDT Sexual Orientation Not on file documented as of this encounter Plan of Treatment Not on file documented as of this encounter Procedures Procedure Name Priority Date/Time Associated Diagnosis Comments BACTERIAL CULTURE, URINE Routine 09/19/2001 14:30 EDT documented in this encounter Results * BACTERIAL CULTURE, URINE (09/19/2001 14:30 EDT) Specimen Description Urine [facility] Result Less than 10,000 CFU/ml Mixed gram positive growth [facility] Report Status Final [id number] [facility] 09/19/2001 14:3 0 EDT 09/19/2001 15:50 EDT us Brittany Alberto MD MICROBIOLOGY - GENERAL ORDERABL ES Final Result Performing Organization Address City/State/[facility] Co de Phone Number [facility] [address] [address] documented in this encounter Visit Diagnoses Not on filedocumented in this encounter
--- OUTSIDE RECORDS SUMMARY | 2024-06-06 06:13 | XMS_ITS | Encounter Summary ---
Author Organization [facility] Address [address] [place] [address] Care Team Providers Care Boring Mill Set Up Operator Vertical Name Role Phone Unavailable Primary Care Provider Unavailabl e Encounter Details Date Type Department Care Team (Late st Contact Info) Description 05/25/2005 9:23 EST - 05/25/2005 11:59 EST Hospital Encounter [facility] [address] [place] [address] Brittany Alberto MD [address] [place] [address] Discharge Disposition: Auto Discharge Social History Tobacco Use Types Packs/Day Years Used Date Smoking Tobacco: Never Assessed Comments Unknown Sex and Gender Information Value Date Recorded Sex Assigned at Not on file Legal Sex Female 18:24 EST Gender Identity Female 09/29/2021 14:29 EDT Sexual Orientation Not on file documented as of this encounter Discharge Disposition Disposition Code Departure Means Destination Auto Discharge documented in this encounter Plan of Treatment Not on file documented as of this encounter Procedures Procedure Name Priority Date/Time Associated Diagnosis Comments RAD US RETROPERITONEAL COMPLETE 05/25/2005 10:08 EST documented in this encounter Results * RAD US RETROPERITONEAL COMPLETE (05/25/2005 10:08 EST) Anatomical Region Laterality Modality Other 05/25/2005 10:0 8 EST Narrative 11/19/2008 2:15 EDT UTI RENAL / RETROPERITONEAL ULTRASOUND PEDIATRIC 02/03/06 1000 CLINICAL INFORMATION: History of UTI and vesicoureteric reflux. ??Rule out scarring, check kidney size and growth. COMPARISON: Ultrasound 04/11/04. FINDINGS: The kidneys are normal in appearance without evidence of scarring or hydronephrosis. ??The right kidney measures 7.9cm and the left kidney 7.2cm. These are at the 50th percentile in length for the patient's age. ??Review of the prior report shows that the kidneys were also at the 50th percentile and there has been interval and appropriate growth. ??The urinary bladder is within normal limits. ??Bilateral ureteral jets are noted. There is a small post void residual of 10cc. IMPRESSION: 1. Normal kidneys demonstrating appropriate interval growth compared to the prior. 2. Small post void residual. D: ??05/25/05 T: ??05/28/05 /jv Procedure Note Frank Rachel MD - 11/19/2008 UTI RENAL / RETROPERITONEAL ULTRASOUND PEDIATRIC 05/25/05 1000 CLINICAL INFORMATION: History of UTI and vesicoureteric reflux. Rule out scarring, check kidney size and growth. COMPARISON: Ultrasound 04/11/04. FINDINGS: The kidneys are normal in appearance without evidence of scarring or hydronephrosis. The right kidney measures 7.9cm and the left kidney 7.2cm. These are at the 50th percentile in length for the patient's age. Review of the prior report shows that the kidneys were also at the 50th percentile and there has been interval and appropriate growth. The urinary bladder is within normal limits. Bilateral ureteral jets are noted. There is a small post void residual of 10cc. IMPRESSION: 1. Normal kidneys demonstrating appropriate interval growth compared to the prior. 2. Small post void residual. /jv us Brittany Alberto MD IMG US ORDERABLES Final Result documented in this encounter Visit Diagnoses Not on filedocumented in this encounter
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
--- OUTSIDE RECORDS SUMMARY | 2024-06-06 06:13 | XMS_ITS | Encounter Summary ---
Author Organization [facility] Address [address] [place] [address] Care Team Providers Care Precision Agriculture Specialist Name Role Phone AgustinaGiuliana alvarez JIMENEZ Primary Care Provider [phone] Yovanny Wilson MD Unavailable Unavailable Reason for Visit * Reason Onset Date Comments Appointment Related 09/20/2016 Encounter Details Date Type Department Care Team (Late st Contact Info) Description 09/20/2016 Telephone [facility] Pediatric Neurology [facility] [address] [place], [place] [phone] Dong Swain MD [address] [place] [phone] Appointment Related Social History Tobacco Use Types Packs/Day Years [...] 09/11/2016 13:47 EDT documented in this encounter Miscellaneous Notes * Telephone Encounter - Ray, Elvira H - 09/20/2016 0837 EDT Called mom to provide MRI appointment and she stated she already had the date - October 17. documented in this encounter Plan of Treatment Not on file documented as of this encounter Visit Diagnoses Not on filedocumented in this encounter Care Teams Precision Agriculture Specialist Relationship Specialty Start Date End Date Giuliana Berrios NP [address] [place] [address] PCP - General 09/07/16 03/26/18 Yovanny Wilson MD [address] [place] [address] 09/07/16 documented as of this encounter
--- OUTSIDE RECORDS SUMMARY | 2024-06-06 06:13 | XMS_ITS | Encounter Summary ---
Author Organization [facility] Address [address] [place] [address] Care Team Providers Care Nurse Practitioner Physicians Assistant Name Role Phone Yovanny Wilson MD Unavailable Unavailable Solange Desai PA-C Primary Care Provider +1 [phone] Encounter Details Date Type Department Care Team (Late st Contact Info) Description 07/24/2022 Lab Requisition [facility] Pathology & Laboratory Medicine - [address] [address] Outr Resulting Lab, Provider Social History Tobacco [...] Associated Diagnosis Comments CHLAMYDIA/N. GONORRHOEAE AMPLIFIED NUCLEIC ACID, THINPREP Routine 07/24/2022 16:25 EDT documented in this encounter Results * CHLAMYDIA/N. GONORRHOEAE AMPLIFIED RNA, THINPREP (07/24/2022 16:25 EDT) Neisseria gonorrhoeae Result Negative Negative 07/25/2022 13:24 EDT [facility] Chlamydia trachomatis Result Negative Negative 07/25/2022 13:24 EDT [facility] Papanicolaou smear specimen (specimen) CERVIX UTERI STRUCTURE / Unknown 07/24/2022 16:25 EDT 07/25/2022 7:59 EDT us Provider Outr Resulting Lab MICROBIOLOGY - GENER AL ORDERABLES Final Result [facility] [address] [place] [address] documented in this encounter Visit Diagnoses Not on filedocumented in this encounter Care Teams Nurse Practitioner Physicians Assistant Relationship Specialty Start Date End Date Solange Desai PA-C [address] [place] [address] PCP - General Family Medicine - Primary Care 09/29/21 Yovanny Wilson MD 09/07/16 documented as of this encounter
--- OUTSIDE RECORDS SUMMARY | 2024-06-06 06:13 | XMS_ITS | Encounter Summary ---
Author Organization [facility] Address [address] [place] [address] Care Team Providers Care Global Engineering Manager Name Role Phone Yovanny Wilson MD Unavailable Unavailable Unknown, Provider MD Primary Care Provider Solange Chisholm PA-C Primary Care Provider [phone] Encounter Details Date Type Department Care Team (Late st Contact Info) Description 07/16/2020 Lab Requisition [facility] Pathology & Laboratory Medicine - [facility] [address] [place] [address] Outr Resulting Lab, Provider Social History Tobacco Use Types Packs/Day Years Used Date Smoking Tobacco: Passive Smo ke Exposure - Never Smoker Interpersonal Safety Answer Date Record ed Physically [...] Procedure Name Priority Date/Time Associated Diagnosis Comments FECAL BACTERIAL PATHOGENS BY PCR Routine 07/16/2020 13:09 EDT OVA/PARASITE EXAM Routine 07/16/2020 13: 09 EDT documented in this encounter Results * FECAL BACTERIAL PATHOGENS BY PCR (07/16/2020 13:09 EDT) Salmonella PCR Negative Negative 07/17/2020 22:05 EDT [facility] Shigella/Enteroin vasive E. coli Negative Negative 07/17/2020 22:05 EDT [facility] HN LAB CAMPYLOBACTER PCR Negative Negative 07/17/2020 22:05 EDT [facility] Shiga Toxin PCR Negative Negative 22:05 EDT [facility] Feces SPECIMEN FROM RECTUM / Unknown 07/16/2020 13:09 EDT 07/17/2020 17:49 EDT us Provider Outr Resulting Lab MICROBIOLOGY - GENER AL ORDERABLES Final Result Performing Organization Address [facility] Co de Phone Number [facility] [address] [place] [address] * OVA/PARASITE EXAM (07/16/2020 13:09 EDT) Parasite No ova and parasites seen. 07/18/2020 13:50 EDT [facility] Feces SPECIMEN FROM RECTUM / Unknown 07/16/2020 13:09 EDT 07/17/2020 17:49 EDT Narrative [facility] - 07/18/2020 13:50 EDT (If Cryptosporidium, Cyclospora, or Microsporidium are suspected, specific tests must be requested.) Single negative specimen does not rule out the possibility of a parasitic infection. us Provider Outr Resulting Lab MICROBIOLOGY - GENER AL ORDERABLES Final Result Performing Organization Address City/[facility]/ZIP Co de Phone Number [facility] [address] [place] [address] documented in this encounter Visit Diagnoses Not on filedocumented in this encounter Care Teams Global Engineering Manager Relationship Specialty Start Date End Date Unknown, Provider, PCP - General 03/27/18 09/28/21 Solange Desai, PARandyC [address] [place] [address] PCP - General Family Medicine - Primary Care 09/29/21 Yovanny Wilson MD 09/07/16 documented as of this encounter
--- OUTSIDE RECORDS SUMMARY | 2024-06-06 06:13 | XMS_ITS | Encounter Summary ---
Author Organization [facility] Address [address] [place] [address] Care Team Providers Care Still Operator Batch Or Continuous Name Role Phone Yovanny Wilson MD Unavailable Unavailable Solange Desai PA-C Primary Care Provider [phone] [phone] Encounter Details Date Type Department Care Team (Late st Contact Info) Description 02/14/2023 Lab Requisition [facility] Pathology & Laboratory Medicine - [address] [address] Outr Resulting Lab, Provider Social History Tobacco [...] Comments CHLAMYDIA/N. GONORRHOEAE AMPLIFIED NUCLEIC ACID Routine 02/14/2023 13:50 EDT documented in this encounter Results * CHLAMYDIA/N. GONORRHOEAE AMPLIFIED RNA (02/14/2023 13:50 EDT) Neisseria gonorrhoeae Result Negative Negative 02/15/2023 14:13 EDT [facility] Chlamydia trachomatis Result Negative Negative 02/15/2023 14:13 EDT [facility] Swab VAGINAL STRUCTURE / Unknown 02/14/2023 13:50 EDT 02/14/2023 22:15 EDT us Provider Outr Resulting Lab MICROBIOLOGY - GENER AL ORDERABLES Final Result [facility] [address] [place] [address] documented in this encounter Visit Diagnoses Not on filedocumented in this encounter Care Teams Still Operator Batch Or Continuous Relationship Specialty Start Date End Date Solange Desai PA-C [address] [place] [address] PCP - General Family Medicine - Primary Care 09/29/21 Yovanny Wilson MD 09/07/16 documented as of this encounter
--- OUTSIDE RECORDS SUMMARY | 2024-06-06 06:13 | XMS_ITS | Encounter Summary ---
Author Organization [facility] Address [address] [place] [address] Care Team Providers Care Plastic Dolls Mold Filler Name Role Phone AgustinaGiuliana alvarez H[employer] D[employer]ITY [employer]ESS LABORER Primary Care Provider [phone] Yovanny Wilson MD Unavailable Unavailable Encounter Details Date Type Department Care Team (Latest Contact Info) Description 10/17/2016 12:00 EDT - 10/17/2016 23:59 EDT Hospital Encounter [facility] Neurophysiology - [facility] ([address] [facility] [address]) [address] [place], [place] [id number] Unknown, Provider, MD Damien gaffney Discharge Disposition: Auto Discharge Social History Tobacco [...] 09/11/2016 13:47 EDT documented in this encounter Discharge Diagnoses Diagnosis R55 Syncope and collapse-R55[ICD-10-CM] documented in this encounter Medications at Time of Discharge ondansetron (ZOFRAN) 4 mg tablet Take 8 mg by mouth every 8 hours as needed for Nausea. SUMAtriptan (IMITREX) 5 mg/actuation nasal spray Instill 5 mg into right nostril once as needed. documented as of this encounter Discharge Disposition Disposition Code Departure Means Destination Auto Discharge Home documented in this encounter Procedure Notes * Jaciel Elliott MD PhD - 10/17/2016 1409 EDT [facility] Name: Lakisha Griffith Clinical Neurophysiology Laboratory [address] [facility] : [address] [place], [place] Date: 10/17/2016 Electroencephalogram Report Referring Physician: Dong Swain MD Study Number: [id number] Clinical Indication: 15 year old female with episodes of altered awareness, talking gibberish and headache after. seizure vs migraine. Medications: Topomax 25mg twice daily Technical Description: Standard EEG: An in-laboratory digital EEG is performed utilizing silver-silver chloride electrodesplaced according to the International 10-20 system of electrode placement. CPZ serves as the recording reference electrode. The following additional electrodes are also placed: ECG electrodes , anterior temporal electrodes The study begins at 1230 until 1312 with a total study duration of 42 minutes. During this study the following states were recorded: Wake Subject factors: Cooperative The patient and/or caregivers report:8 hours of sleep night before study; Estimated average 8 hoursof sleep Previous EEG Study? No Findings: 1. The waking cerebral background activity is characterized by a posterior dominant rhythm of 11 Hzthat is symmetric, synchronous and reactive to eye opening. Continuous low amplitude faster frequencies are symmetrically present. 2. Three minutes of hyperventillation produced no changes in the EEG. 3. Drowsiness but no stage II sleep was recorded. 4. Standard photic stimulation is unremarkable. Impression: Normal EEG. Clinical Correlation: No interictal epileptiform discharges recorded during this study to help support a diagnosis of epilepsy, though their absence does not exclude this diagnosis. Blaine Key MD PGY 3 Neurology 10/17/2016 14:09 I have reviewed the study and made corrections as needed. Jaciel Elliott MD, PhD ABPN Certified, Neurology and Clinical Neurophysiology documented in this encounter Plan of Treatment Not on file documented as of this encounter Visit Diagnoses Diagnosis Blackout spell Syncope and collapse documented in this encounter Care Teams Plastic Dolls Mold Filler Relationship Specialty Start Date End Date Giuliana Berrios NP [address] [place] [address] PCP - General 09/07/16 03/26/18 Yovanny Wilson MD [address] [place] [address] 09/07/16 documented as of this encounter
--- OUTSIDE RECORDS SUMMARY | 2024-06-06 06:13 | XMS_ITS | Encounter Summary ---
Author Organization [facility] Address [address] [place] [address] Care Team Providers Care Tool Maker Name Role Phone Yovanny Wilson MD Unavailable Unavailable Solange Desai PA-C Primary Care Provider [phone] [phone] Encounter Details Date Type Department Care Team (Late st Contact Info) Description 07/23/2023 Lab Requisition [facility] Pathology & Laboratory Medicine - [address] [address] Outr Resulting Lab, Provider Social History Tobacco [...] Procedure Name Priority Date/Time Associated Diagnosis Comments VITAMIN D (25,OH) Routine 07/23/2023 13: 17 EDT IGA Routine 07/23/2023 13:17 EDT DHEA SULFATE Routine 07/23/2023 13:17 EDT ANTI NUCLEAR AB (RADHA), IFA Routine 07/23/2023 13:17 EDT documented in this encounter Results * ANTI NUCLEAR AB (RADHA), IFA (07/23/2023 13:17 EDT) RADHA Interpretation Negative Negative 2023 12:16 EDT [facility] Comment:No titer performed, RADHA Screen is negative. Blood VENOUS BLOOD / Unknown 07/23/2023 13:17 EDT 07/23/2023 21:34 EDT Narrative [facility] - 07/24/2023 12:16 EDT Results were obtained with the INOVA NOVA Lite HEp-2 RADHA Kit by indirect immunofluorescence. us Provider Outr Resulting Lab IMMUNOLOGY AND SEROL OGY ORDERABLES Final Result Performing Organization Address City/[facility]/ZIP Co de Phone Number [facility] [address] [place] [address] * IGA (07/23/2023 13:17 EDT) IgA 120 85 - 499 mg/dL 07/24/2023 8:11 EDT [facility] Blood VENOUS BLOOD / Unknown 07/23/2023 13:17 EDT 07/23/2023 21:34 EDT us Provider Outr Resulting Lab CHEMISTRY & BLOOD GA S ORDERABLES Final Result Performing Organization Address City/[facility]/ZIP Co de Phone Number [facility] [address] [place] [address] * DHEA SULFATE (07/23/2023 13:17 EDT) DHEA Sulfate 298 134 - 407 ug/dL 07/24/2023 10:13 EDT [facility] Blood VENOUS BLOOD / Unknown 07/23/2023 13:17 EDT 07/23/2023 21:34 EDT us Provider Outr Resulting Lab CHEMISTRY & BLOOD GA S ORDERABLES Final Result Performing Organization Address City/[facility]/ZIP Co de Phone Number [facility] [address] [place] [address] * (ABNORMAL) VITAMIN D (25,OH) (07/23/2023 13:17 EDT) 25OH Vitamin D Tot 24(L) 30 - 100 ng/mL 07/24/2023 12:15 EDT [facility] Comment: Vitamin D 25,OH Interpretive Ranges: Deficiency: ??<10.0 ng/mL Insufficiency: ??10.0 - 30.0 ng/mL Sufficiency: ??30.0 - 100.0 ng/mL Toxicity: ??>100.0 ng/mL Blood VENOUS BLOOD / Unknown 07/23/2023 13:17 EDT 07/23/2023 21:34 EDT us Provider Outr Resulting Lab CHEMISTRY & BLOOD GA S ORDERABLES Final Result Performing Organization Address City/[facility] Co de Phone Number [facility] [address] [place] [address] documented in this encounter Visit Diagnoses Not on filedocumented in this encounter Care Teams Tool Maker Relationship Specialty Start Date End Date Solange Desai PA-C [address] [place] [address] PCP - General Family Medicine - Primary Care 09/29/21 Yovanny Wilson MD 09/07/16 documented as of this encounter
--- OUTSIDE RECORDS SUMMARY | 2024-06-06 06:13 | XMS_ITS | Encounter Summary ---
Author Organization [facility] Address [address] [place] [address] Care Team Providers Care Pyrometer Operator Name Role Phone Unavailable Primary Care Provider Unavailabl e Encounter Details Date Type Department Care Team (Late st Contact Info) Description 05/25/2005 Before PRISM Converted Visit (Maple) [facility] - Maple conversion [address] [place] [address] Brittany Alberto MD [address] [place] [id number] Social History Tobacco Use Types Packs/Day Years Used Date Smoking Tobacco: Never Assessed Comments Unknown Sex and Gender Information Value Date Recorded Sex Assigned at Not on file Legal Sex Female 18:24 EST Gender Identity Female 09/29/2021 14:29 EDT Sexual Orientation Not on file documented as of this encounter Progress Notes * Brittany Alberto MD - 06/22/2009 194 EST PROGRESS/FOLLOWUP NOTE- 05/25/2005 PROBLEM: Vesicoureteral reflux. SUBJECTIVE: Lakisha is here with her mother and her younger sister today. Lakisha has been doing verywell. She is in kindergarten now. She has had no symptomatic UTIs at all and she is dry day and night reliably. She has recently been seen by Dr. Singh because she had persistent vomiting and epigastric pain. Her mom was also concerned about Lakisha's growth rate and dietary intake. Dr. Singh started Lakisha on Zantac 5 ml b.i.d. and her mom feels that Lakisha has definitely improved dramatically,increasing her appetite significantly. The pain has completely resolved. Lakisha does, however, complain about the taste of the liquid Zantac. Lakisha has had some very large, hard stools lately. Her mom has attempted to treat that with juice supplements, but without too much success. PHYSICAL EXAM: Height 101.8 cm, weight 16.6 kg, blood pressure 72/44. Abdominal exam is normal. Presacral exam is normal. Lower extremity strength is normal. Renal ultrasound shows the right kidney measuring 6.9 cm, left 7.3 cm, both having shown normal growth since the last ultrasound about a year ago. ASSESSMENT: Good interval growth of both kidneys and no symptomatic urinary tract infections. Although reflux may still be present, if there are no urinary tract infections and kidneys are showing normal interval growth, there would not be necessarily an indication for surgical intervention. Constipation is an issue and may increase the risk of recurrent urinary tract infection. PLAN: 1. Start MiraLax 17 grams daily mixed with juice. 2. Low threshold for evaluation and prospective treatment of urinary tract infections should symptoms occur. 3. Return to clinic in 1 year and repeat renal ultrasound at that time. Signed by Brittany Alberto MD 05/29/2005 18:52 Shelli Alberto [facility] [id number] P Guillot, MD Brittany Alberto MD Division of Pediatric Nephrology [phone] - Brittany Alberto MD P - o2 Job ID: [id number] Document ID: [id number] cc: Yovanny Wilson MD documented in this encounter Plan of Treatment Not on file documented as of this encounter Visit Diagnoses Not on filedocumented in this encounter
--- OUTSIDE RECORDS SUMMARY | 2024-06-06 06:13 | XMS_ITS | Encounter Summary ---
Author Organization [facility] Address [address] [place] [address] Care Team Providers Care Crm Coordinator Name Role Phone Yovanny Wilson MD Unavailable Unavailable Unknown, Provider MD Primary Care Provider Solange Chisholm PA-C Primary Care Provider [phone] Encounter Details Date Type Department Care Team (Late st Contact Info) Description 09/24/[address] [facility] Pathology & Laboratory Medicine - [facility] [address] [place] [address] Outr Resulting Lab, Provider Social History Tobacco [...] Comments CHLAMYDIA/N. GONORRHOEAE AMPLIFIED NUCLEIC ACID Routine 09/24/2021 8:10 EDT documented in this encounter Results * CHLAMYDIA/N. GONORRHOEAE AMPLIFIED RNA (09/24/2021 8:10 EDT) Neisseria gonorrhoeae Result Negative Negative 09/25/2021 14:52 EDT [facility] Chlamydia trachomatis Result Negative Negative 09/25/2021 14:52 EDT [facility] Swab ENTIRE VAGINA / Unknown Swab / Unknown 09/24/2021 8:10 EDT 09/24/2021 18:30 EDT us Provider Outr Resulting Lab MICROBIOLOGY - GENER AL ORDERABLES Final Result Performing Organization Address City/State/[facility] Co de Phone Number [facility] [address] [place] [address] documented in this encounter Visit Diagnoses Not on filedocumented in this encounter Care Teams Crm Coordinator Relationship Specialty Start Date End Date Unknown, Provider, PCP - General 03/27/18 09/28/21 Solange Desai, PARandyC [address] [place] [address] PCP - General Family Medicine - Primary Care 09/29/21 Yovanny Wilson MD 09/07/16 documented as of this encounter
--- OUTSIDE RECORDS SUMMARY | 2024-06-06 06:13 | XMS_ITS | Encounter Summary ---
Author Organization [facility] Address [address] [place] [address] Care Team Providers Care Manager Neonatal Name Role Phone Yovanny Wilson MD Unavailable Unavailable Solange Desai PA-C Primary Care Provider [phone] Encounter Details Date Type Department Care Team (Late st Contact Info) Description 10/05/2021 Lab Requisition [facility] Pathology & Laboratory Medicine - [address] [address] Pratik Gong MD [address] [place] [address] Encounter for other general examination Social History Tobacco Use Types Packs/Day Years [...] Procedure Name Priority Date/Time Associated Diagnosis Comments PAP TEST Today 10/05/2021 9:36 EDT Encounter for other general examination documented in this encounter Results * PAP TEST (10/05/2021 9:36 EDT) Specimens A. Cervix and/or Endocervix , ThinPrep Imaging System with Manual Evaluation 10/10/2021 13:37 EDT [facility] Specimen Adequacy Satisfactory for Evaluation - transformation zone component present 10/10/2021 13:37 EDT [facility] General Categorization Negative for intraepithelial lesion or malignancy 10/10/2021 13:37 T [facility] Attestation . 10/10/2021 13:37 T [facility] at 1337 Clinical History See below 10/11/19 13:37 EDT [facility] Performing Lab [facility] 10/10/2021 13:37 T [facility] Scanned Images 10/10/2021 13:37 T [facility] Papanicolaou smear specimen (specimen) CERVIX UTERI STRUCTURE / Unknown 10/05/2021 9:36 EDT 10/05/2021 15:19 EDT us Pratik Gong MD PATHOLOGY ORDERABLES Final Result [facility] [address] [place] [address] documented in this encounter Visit Diagnoses Diagnosis Encounter for other general examination documented in this encounter Care Teams Manager Neonatal Relationship Specialty Start Date End Date Solange Desai PA-C [address] [place] [address] PCP - General Family Medicine - Primary Care 09/29/21 Yovanny Wilson MD 09/07/16 documented as of this encounter
--- OUTSIDE RECORDS SUMMARY | 2024-06-06 06:13 | XMS_ITS | Encounter Summary ---
Author Organization [facility] Address [address] [place] [address] Care Team Providers Care Head Screen Worker Name Role Phone Yovanny Wilson MD Unavailable Unavailable Solange Desai PA-C Primary Care Provider [phone] [phone] Encounter Details Date Type Department Care Team (Late st Contact Info) Description 05/27/2023 Lab Requisition [facility] Pathology & Laboratory Medicine - [address] [address] Outr Resulting Lab, Provider Social History Tobacco [...] Associated Diagnosis Comments AMPHETAMINE CONFIRMATION PANEL Routine 05/27/2023 15:44 EST documented in this encounter Results * (ABNORMAL) AMPHETAMINE CONFIRMATION PANEL (05/27/2023 15:44 EST) Amphetamine Confirmation 1934(A) <100 ng/mL 05/29/2023 14:15 EST [facility] Methamphetamine Confirmation Negative <100 ng/mL 05/29/2023 14:15 EST [facility] Urine URINE / Unknown 05/27/2023 1 5:44 EST 05/27/2023 22:08 EST Narrative [facility] - 05/29/2023 14:15 EST Testing performed by: [facility] [address] [place] [address], [facility] [address] [address] Administrative Officer: West Puente MD; CLIA # [id number] us Provider Outr Resulting Lab GEN LAB UNIT COLLECT ORDERABLES Final Result [facility] [address] [place] [address], [facility] [address] [place] [address], [facility] [phone] documented in this encounter Visit Diagnoses Not on filedocumented in this encounter Care Teams Head Screen Worker Relationship Specialty Start Date End Date Solange Desai PA-C [address] [place] [address] PCP - General Family Medicine - Primary Care 09/29/21 Yovanny Wilson MD 09/07/16 documented as of this encounter
--- OUTSIDE RECORDS SUMMARY | 2024-06-06 06:13 | XMS_ITS | Encounter Summary ---
Author Organization [facility] Address [address] [place] [address] Care Team Providers Care Stand Up Forklift Operator Name Role Phone Yovanny Wilson MD Unavailable Unavailable Unknown, Provider MD Primary Care Provider UnaSolange Main PA-C Primary Care Provider [phone] Encounter Details Date Type Department Care Team (Late st Contact Info) Description 05/26/2020 Lab Requisition [facility] Pathology & Laboratory Medicine - [facility] [address] [place] [address] Todd Todd MD [address] [place] [address] [id number] Encounter for other general examination Social History [...] Procedure Name Priority Date/Time Associated Diagnosis Comments SURGICAL PATHOLOGY Today 05/26/2020 12 :50 EST documented in this encounter Results * SURGICAL PATHOLOGY (05/26/2020 12:50 EST) Final Diagnosis A. GALLBLADDER, CHOLECYSTECTOMY: - Chronic cholecystitis. 05/30/2020 17:43 [facility] Attestation By the signature below, the attending physician certifies that they have 1) personally conducted a gross and/or microscopic examination of the described specimen(s), and/or personally interpreted the results of laboratory testing of the described specimen(s), and 2) personally rendered or confirmed the above diagnosis. 05/30/2020 17:43 [facility] at 1743 Clinical History Biliary dyskinesia 05/30/2020 17:43 [facility] Gross Description A. Received in formalin labelled with proper patient identification (initials P, R) and A. Gallbladder is an intact gallbladder with an attached segment of cystic duct (5.9 cm in length by 2.0 cm in diameter). A cystic duct lymph node is not present. The serosa is smooth and briggs-leon blue. The mucosa is dark green, velvety, and the wall is 0.1 cm in thickness. The cystic duct lumen is patent and measures 0.2 cm in diameter. The cystic duct margin is inked blue. There are no choleliths. Two exhibit display representative sections and the en face cystic duct margin are submitted in A1. Clinton Stanton 05/27/2020 11:54 05/30/2020 17:43 [facility] Performing Lab [facility] 05/30/2020 17:43 [facility] Scanned Images 05/30/2020 17:43 [facility] Tissue ENTIRE GALLBLADDER / Unknown 05/26/2020 12:50 EST 05/27/2020 9:41 EST us Todd Todd MD PATHOLOGY ORDERABLES Fin al Result [facility] [address] [place] [address] documented in this encounter Visit Diagnoses Diagnosis Encounter for other general examination documented in this encounter Care Teams Stand Up Forklift Operator Relationship Specialty Start Date End Date Unknown, Provider, PCP - General 03/27/18 09/28/21 Solange Desai PARandyC [address] [place] [id number] PCP - General Family Medicine - Primary Care 09/29/21 Yovanny Wilson MD 09/07/16 documented as of this encounter
--- OUTSIDE RECORDS SUMMARY | 2024-06-06 06:13 | XMS_ITS | Encounter Summary ---
Author Organization [facility] Address [address] [place] [address] Care Team Providers Care Allied Health Teacher Name Role Phone Unavailable Primary Care Provider Unavailabl e Encounter Details Date Type Department Care Team (Late st Contact Info) Description 02/16/2005 Before PRISM Converted Visit (Maple) [facility] conversion [address], [place] [id number] Jeff Hazel MD [address] [place] [id number] Social History Tobacco Use Types Packs/Day Years Used Date Smoking Tobacco: Never Assessed Comments Unknown Sex and Gender Information Value Date Recorded Sex Assigned at Not on file Legal Sex Female 18:24 EST Gender Identity Female 09/29/2021 14:29 EDT Sexual Orientation Not on file documented as of this encounter Progress Notes * Jeff Singh MD - 06/21/2009 1848 EST February 16, 2005 Yovanny Wilson MD [address] [place] [address] [place] [address] Wilson: Lakisha was seen in consultation today. As you may recall, she is a 4-year-old female who is being seen because of persistent vomiting. Lakisha is an otherwise healthy young girl who has had no medicalproblems other than some vesicoureteral reflux in the past. Approximately 5 weeks ago she began vomiting quite frequently. She did not have any other symptoms or signs at that time consistent with a gastritis or gastroenteritis. She had no fever or diarrhea. The vomiting persisted for 3 weeks untilshe was started by you on Zantac 75 mg twice a day and in less than 48 hours she was completely symptom-free and no longer vomiting. She has been maintained on the Zantac and mom has noticed that in a ddition to no longer vomiting her previously poor appetite has picked up voraciously. She has been eating much more than she ever had before, and mom is very happy in all regards. There is really no significant family medical history other than a sibling also with vesicoureteral reflux. There are no other GI ailments or complaints that are known. Review of systems is negative otherwise. She is onno other medications. She has no known drug allergies. On exam, she is very well appearing though quite small. Her weight is 15.6kg, height 99.7 cm, both of which are around the 5th percentile for her age. Blood pressure is 90/65. Her HEENT exam is within normal limits with no aphthous ulcerations, jaundice, or pallor. Her mucous membranes are pink andmoist. Her chest is clear. Heart has a regular rate and rhythm. Abdomen is soft and nontender with no organomegaly or masses. Extremities are warm and well perfused. Her anus is normally placed with no fissures or skin tags. Her neurological exam is completely intact. My impression is a 4-year-old girl previously with subclinical or silent gastroesophageal reflux. Ana Banuelos likely had an intercurrent illness such as with a virus that brought out her reflux symptomatology, and now that she is on good acid suppression, her vomiting has resolved and her appetite has improved markedly. This is likely secondary to some underlying esophagitis that was not discerned. At this time I have not recommended followup with me, but certainly if any questions or further problems arise, I would be more than happy to see them again. I would like them to continue on theZantac for at least the next several months before attempting to take her off it and see how she does. As always, I am available for questions or comments regarding hercare. Sincerely, Signed by Jeff Singh MD 02/22/2005 10:11 Jonathon Singh, [facility] [id number] A Damico, MD Jeff Singh MD Division of Pediatric Gastroenterology [phone] - Jeff Singh MD P - o6 Job ID: [id number] Document ID: [id number] cc: Yovanny Wilson MD documented in this encounter Plan of Treatment Not on file documented as of this encounter Visit Diagnoses Not on filedocumented in this encounter
--- OUTSIDE RECORDS SUMMARY | 2024-06-06 06:13 | XMS_ITS | Encounter Summary ---
Author Organization [facility] Address [address] [place] [address] Care Team Providers Care Textile Engraver Name Role Phone Yovanny Wilson MD Unavailable Unavailable Unknown, Provider Primary Care Provider Unava ilable Reason for Visit * (Routine) - Receiving Office to Obtain Authorization Specialty Diagnoses / Procedures Referred By Contze cox Referred To Contact Procedures CT OUTSIDE IMAGES BODY Unknown, Provider, MD Referral ID Status Reason Start Date Expiration Date Visits Requested Visits Authorized [id number] Receiving Office to Obtain Authorization 11/16/2019 1 1 Encounter Details Date Type Department Care Team (Late st Contact Info) Description 05/16/2018 Hospital Encounter [facility] Radiology - Main [address] [address] Social History Tobacco Use Types Packs/Day Years [...] Procedure Name Priority Date/Time Associated Diagnosis Comments CT OUTSIDE IMAGES BODY Routine 11/16/2019 13:58 EDT documented in this encounter Results * CT OUTSIDE IMAGES BODY (11/16/2019 13:58 EDT) Narrative DARIN - 11/16/2019 13:58 EDT This is a non-reportable exam. us Provider Unknown MD CARRILLO OTHER IMAGING ORDERABLES Final Result DARIN documented in this encounter Visit Diagnoses Not on filedocumented in this encounter Care Teams Textile Engraver Relationship Specialty Start Date End Date Unknown, Provider, PCP - General 03/27/18 09/28/21 Yovanny Wilosn MD 09/07/16 documented as of this encounter
--- OUTSIDE RECORDS SUMMARY | 2024-06-06 06:13 | XMS_ITS | Encounter Summary ---
Author Organization [facility] Address [address] [place] [address] Care Team Providers Care Wind Instrument Repairer Name Role Phone Yovanny Wilson MD Unavailable Unavailable Solange Desai PA-C Primary Care Provider [phone] Reason for Visit * Reason Comments Hematemesis Pt ambulatory to [facility] with chronic/ daily emesis with acute changes since Saturday. Pt says usually my vomiting is from anxiety, now my stomach hurts and I'm having blood in my vomit and dark BMs. Seen at [facility] ED on Saturday, prescribed treatment for PID, yesterday instructed by her OB to stop medication and present to ED for re-eval since STI testing was negative. No acute distress noted, afebrile. Encounter Details Date Type Department Care Team (Late st Contact Info) Description 09/29/2021 14:09 EDT - 09/29/2021 19:18 EDT Emergency [facility] Emergency Department - [address] [id number] Omid Azar MD [address] [facility], [facility], [address] [place] [address] Abdominal pain, unspecified abdominal location (Primary Dx); Hematemesis with nausea; Non-intractable vomiting with nausea, unspecified vomiting type Discharge Disposition: Home or Self Care Social History Tobacco Use Types Packs/Day Years [...] 09/29/20211910 EDT Temperature 36.6 ??C (97.9 ??F) 09/29/20211910 EDT Respiratory Rate 14 09/29/20211910 EDT Oxygen Saturation 96% 09/29/20211910 EDT Inhaled Oxygen Concentration - - Weight 56.6 kg (124 lb 12.8 oz) 09/29/2021 1325 EDT Height 152.4 cm (5') 09/29/2021 1325 EDT Body Mass Index 24.37 09/29/2021 1325 EDT documented in this encounter Functional Status * [...] 13:47 EDT documented in this encounter Discharge Instructions * Discharge Instructions* Omid Azar MD - 09/29/2021 19:05 EDT You were seen for vomiting, abdominal pain. The laboratory test, and CT scan looked okay and did not show an obvious cause for this. I would recommend taking acid blocking medications in case there is an early ulcer, or stomach irritation. You may buy these [id number] medication such as omeprazole, daily for the next 6 weeks or so. Please return if you have severe pain, unexplained fever, dehydration or other concerning symptoms. I do recommend you cut back on the marijuana use as sometimes this can make the vomiting worse. I also recommend you consider seeing a therapist or psychologist, sometimes this can be helpful. I have placed a referral to the GI team but it may take a while to get in, please call if you do not hear from them. It is also very important to see a primary care doctor in the meantime for ongoingcare. documented in this encounter Medications at Time of Discharge doxycycline (VIBRA-TABS) 100 mg tablet Take 100 mg by mouth 2 times daily. metroNIDAZOLE (FLAGYL) 250 mg tablet Take 500 mg by mouth 2 times daily. omeprazole (PRILOSEC) 40 mg capsuleIndications :Diarrhea, unspecified type,Non-intractab le vomiting with nausea, unspecified vomiting type Take 1 Cap by mouth daily. 90 Cap 2 07/07/2020 ondansetron (ZOFRAN) 4 mg tablet Take 8 mg by mouth every 8 hours as needed for Nausea. promethazine (PHENERGAN) 25 mg tablet Take 25 mg by mouth every 8 hours as needed for Nausea. SUMAtriptan (IMITREX) 5 mg/actuation nasal spray Instill 5 mg into right nostril once as needed. documented as of this encounter Discharge Disposition Disposition Code Departure Means Destination Home or Self Skilled Nursing documented in this encounter ED Notes * Tricia Alonzo RN - 09/29/2021 1638 EDT Shortly after getting Haldol, patient began feeling extremely anxious. Hyperventilating and kneeling at the edge of the bed; diaphoretic. Pulse in 120's; respirations 28. Encouraged patient to slow her breathing and Dr Azar notified. Patient given IV Benadryl and reassured; re-assessed by Dr Azar. Symptoms subsided and patient calmed down. Pulse 96; respirations 12. * Omid Azar MD - 09/29/2021 1429 EDT This patient received an evaluation and medical screening exam for emergent medical conditions at the [facility] on 09/29/2021 Chief Complaint Hematemesis (Pt ambulatory to triage with chronic/ daily emesis with acute changes since Saturday. Pt says usually my vomiting is from anxiety, now my stomach hurts and I'm having blood in my vomit and dark BMs. Seen at [facility] ED on Saturday, prescribed treatment for PID, yesterday instructed by her OB to stop medication and present to ED for re-eval since STI testing was negative. No acute distress noted, afebrile.) HPI Lakisha Griffith is a 20 y.o. female with PMH including anxiety, marijuana use who presents for evaluation of abdominal discomfort and vomiting, blood in the vomit and dark stool. She reports for the past month or more, she has been vomiting and having generalized abdominal discomfort. She sought care in the [place] emergency about 5 days ago they performed a pelvic ultrasound, and empirically began treatment for PID. Her OB after reviewed culture results which were negative, and discontinued the antibiotics, she denies vaginal discharge. She is continued to have daily vomiting, as much is 7times a day, 1 episode of emesis today, had some red blood mixed with gastric contents, she has hada few bowel movements with dark stool today. She denies persistent hematemesis or persistent stooling. She denies history of an ulcer. She has generalized abdominal discomfort now, similar to what she has had over the past month or more. She denies fevers, dysuria. She has vaginal bleeding consistent with her normal menstrual cycle currently. She smokes marijuana daily, denies alcohol use. She ishad a prior cholecystectomy. She said she feels very anxious History was provided by: The patient and her mother Patient's pertinent PMH, FH, SH were reviewed and updated PRN. ROS A 10-point review of systems was performed. The patient answered negative to all questions with theexceptions of those explicitly detailed as positives in the HPI. Pertinent negatives are also explicitly stated. Physical Exam Vital Signs Vitals Reassessment?: Yes Temp: 36.6 ??C (97.9 ??F) Temp src: Oral Pulse: 87 Resp: 14 SpO2: 96 % BP: 114/65 BP Device: BP Machine BP Patient Position: Supine BP Cuff Location: Left arm O2 Device: None (Room air) Nursing notes and vital signs were reviewed. Constitutional: Nontoxic, tearful and anxious at times Eyes: Pupils equal and reactive to light, no scleral icterus Mouth: Moist oral mucosa without apparent lesions Neck: Full ROM, no cervical LAD, supple with no meningismus Heart: RRR without murmurs, rubs, or gallops, normal radial pulses Lungs: Clear to ascultation, no respiratory distress or tachypnea Abdomen: The abdomen is soft, there is generalized mild abdominal discomfort throughout the entire abdomen without rebound or guarding. No unilateral CVA tenderness Skin: No overt rashes on exposed skin Extremities: Moving spontaneously, warm and well perfused, no edema, no calf tenderness Neuro: Grossly neurologically intact with normal speech Psych: No agitation or overt thought disorder Medical Decision Making This is a 20-year-old female who presents with generalized abdominal discomfort and a small volume hematemesis. This is most likely a Yaquelin-Clinton type tear versus gastritis or ulcer. She is well-appearing, no major risk factors for cirrhosis or varices. I will check a CBC to ensure she is not anemic. We will also check basic labs including a lipase. I will treat her symptomatically, cannabinoidhyperemesis or cyclical vomiting remains on the differential with her frequent marijuana use. If her symptoms resolve with symptomatic management, I do not think we need further imaging today. If they do not resolve I will have to consider a CT of her abdomen, to look for other causes including bowel obstruction, appendicitis, inflammatory bowel disease Her labs are reassuring, without anemia or significant electrolyte disturbance and normal LFTs. Discussed with her the option of trying Haldol which she is in favor of. Unfortunately the Haldol caused akathisia, that improved with Benadryl administration. After that episode, she did say her nausea and abdominal discomfort was better though that pain still persisted. I discussed with her, her family member at the bedside the option of CT scan versus observation at home. After informed discussionwe decided to pursue a CT scan today. The CT scan was normal. I I reviewed all the results with her, her aunt at the bedside. I am reassured by the negative results overall but she will need close follow-up. Recommended empiric PPI therapy, she has had no further bleeding since here, normal H/H I do not see an indication for an emergent endoscopy but I did place referral to gastroenterology. I also recommended cutting back on marijuana use, and considering follow-up with primary care, and a psychologist as she mentioned she has a history of an eating disorder that could be playing a role, along with her anxiety. We discussed reasons to return sooner, follow-up plan, she was discharged in stable and improved condition Prior to discharge discussed with the patient likely diagnosis, expected course, treatment plan, follow-up plan and reasons to return. <principal problem not specified> Laboratory Results Labs Reviewed COMPLETE BLOOD COUNT AND DIFFERENTIAL - Abnormal Result Value Status WBC 9.20 Final RBC 4.61 Final Hemoglobin 13.8 Final HCT 41.0 Final MCV 89 Final MCH 29.9 Final MCHC 33.7 Final RDW-CV 12.8 Final RDW-SD 42.0 Final PLT 270 Final MPV 9.2 (*) Final Neutrophils 71.5 Final Lymphocytes 23.0 Final Monocytes 4.6 Final Eosinophils 0.2 Final Basophils 0.5 Final Immature Grans 0.2 Final Absolute Neutrophils 6.57 Final Absolute Lymphocytes 2.12 Final Absolute Monocytes 0.42 Final Absolute Eosinophils 0.02 (*) Final Absolute Basophils 0.05 Final Absolute Immature Grans 0.02 Final Type of Differential: Auto Final COMPREHENSIVE METABOLIC PANEL (CMP) - Abnormal Sodium 140 Final Potassium 4.1 Final Chloride 103 Final CO2 Total 24 Final Glucose 79 Final BUN 12 Final Creatinine 0.78 Final eGFR 111 Final Total Protein 7.8 Final Albumin 5.2 (*) Final Alkaline Phosphatase 55 Final AST 33 Final ALT 21 Final Bilirubin, Total 0.6 Final Calcium 9.5 Final Albumin/Globulin Ratio 2.0 Final Anion Gap 13 Final POCT URINE DIPSTICK, CLINITEK - Abnormal Color, UA Yellow Final Clarity, UA Cloudy (*) Final Glucose, UA Negative Final Bilirubin, UA Negative Final Ketones, UA 2+ (*) Final Specific Wilson, Urine >=1.030 Final Blood, UA Negative Final pH, UA 5.5 Final Protein, UA Negative Final Urobilinogen, UA 0.2 Final Nitrite, UA Negative Final Leuk Esterase Negative Final HN LAB COMMENT (CLINITEK, UR) Test performed at Emergency Department Final LIPASE - Normal Lipase 32 Final POCT TEST, CLINITEK ORDER Narrative: The following orders were created for panel order POCT TEST, CLINITEK ORDER. Procedure Abnormality Status --------- ------ POCT TEST, CLI...[[id number]] Final result POCT CSN BARCODE URINE P...[[id number]] Final result Please view results for these tests on the individual orders. POCT CSN BARCODE URINE PREG TEST POCT URINE CLINITEK (DIPSTICK) - DOES NOT REFLEX Narrative: The following orders were created for panel order POCT URINE CLINITEK (DIPSTICK) - DOES NOT REFLEX. Procedure Abnormality Status --------- ------ POCT URINE DIPSTICK, CLI...[[id number]] Abnormal Final result POCT CSN BARCODE URINE D...[[id number]] Final result Please view results for these tests on the individual orders. POCT CSN BARCODE URINE DIPSTICK POCT TEST, CLINITEK UPT Result Negative Final HN LAB COMMENT (CLINITEK, UPT) Test performed at Emergency Department Final Data Interpretation An EKG was obtained and independently interpreted: EKG shows sinus rhythm rate of 64, no ST elevation or ST depression, incomplete right bundle branchblock pattern, no ST elevation or ST depression, QT interval is normal X-ray imaging obtained was personally reviewed and independently interpreted along with radiologist: Using care everywhere unable to obtain the imaging findings, no sonographic abnormalities of the uterus or ovaries noted on ultrasound from 09/24 CT scans and MRI reviewed by me and interpreted by the radiologist: IMPRESSION 1. No acute abnormality in the abdomen and pelvis. 2. Status post cholecystectomy. ?? Laboratory results independently reviewed, significant for: No significant electrolyte abnormality,normal CBC, urinalysis not suggestive of infection, negative urine Procedures Procedures ED Course A medical screening exam was performed. See course, as in medical decision making. She was discharged stable condition after a long period of observation, and a negative work-up in the emergency department. Recommended close follow-up. Disposition Final diagnoses: Abdominal pain, unspecified abdominal location Hematemesis with nausea Non-intractable vomiting with nausea, unspecified vomiting type Disposition decisions were made weighing risks and benefits of hospitalization vs. outpatient treatment, the risk for further decompensation, and the patient's wishes. Condition at departure from the Emergency Department: Improved documented in this encounter Plan of Treatment Not on file documented as of this encounter Procedures Procedure Name Priority Date/Time Associated Diagnosis Comments ECG REPORT - SCANNED 10/06/2021 12:[address] ABDOMEN PELVIS W CONTRAST STAT 09/29/2021 18:41 EDT POCT CSN BARCODE URINE DIPSTICK STAT 09/29/2021 16:10 EDT POCT URINE CLINITEK (DIPSTICK) - DOES NOT REFLEX STAT 09/29/2021 16:08 EDT POCT URINE DIPSTICK, CLINITEK STAT 09/29/2021 16:08 EDT EKG 12-LEAD STAT 09/29/2021 16:02 EDT POCT CSN BARCODE URINE PREG TEST STAT 09/29/2021 15:14 EDT COMPLETE BLOOD COUNT AND DIFFERENTIAL STAT 09/29/2021 15:14 EDT LIPASE STAT 09/29/2021 15:14 EDT COMPREHENSIVE METABOLIC PANEL (CMP) STAT 09/29/2021 15:14 EDT POCT TEST, CLINITEK ORDER STAT 09/29/2021 15:11 EDT POCT TEST, CLINITEK STAT 09/29/2021 15:11 EDT documented in this encounter Results * ECG REPORT - SCANNED (10/06/2021 12:05 EDT) 10/06/2021 12:0 5 EDT us Scan 2 [employer]ider PROCEDURE/MINOR SURGICAL OR DERABLES Final Result * CT ABDOMEN PELVIS W CONTRAST (09/29/2021 18:41 EDT) Anatomical Region Laterality Modality Body, Abdomen, Pelvis, Abdomen and Pelvis Computed Tomography 09/29/2021 19:0 8 EDT Impressions 09/29/2021 19:08 EDT 1. ??No acute abnormality in the abdomen and pelvis. 2. ??Status post cholecystectomy. I have personally reviewed the images and the above interpretation and agree with the findings. Narrative 09/29/2021 19:[address] ABDOMEN PELVIS W CONTRAST09/29/2021 6:37 PM Signs and Symptoms/Comments: ?? Abdominal pain including RLQ, vomiting, worsening over past week Technique: CT of the abdomen and pelvis was performed following the administration intravenous contrast; coronal and sagittal multiplanar reconstructions generated. Comparison: CT abdomen pelvis 05/16/2018 Findings: Lower chest: Lung bases are unremarkable. Hepatobiliary: No focal hepatic lesion. The gallbladder is surgically absent. No intra or extrahepatic biliary ductal dilatation. Spleen, pancreas, adrenal glands: The spleen enhances normally. The pancreas enhances normally. No pancreatic ductal dilatation. The adrenal glands are normal. Kidneys, ureters, bladder: The kidneys enhance symmetrically. No hydronephrosis or hydronephrosis or nephrolithiasis. The bladder is unremarkable. Uterus, ovaries: The uterus is normal for age. No adnexal mass. Bowel: No bowel obstruction, bowel wall thickening, or acute inflammatory change. The appendix is normal (coronal #64). Peritoneal cavity / Subperitoneal space: No free air or free fluid. Lymphovascular: The aorta is normal in course and caliber. No enlarged lymph nodes. Abdominal wall: No bowel-containing hernias. Musculoskeletal: No fracture or concerning osseous lesion. [employer]: No additional findings Procedure Note Sarah Maria MD - 09/29/2021 CT ABDOMEN PELVIS W CONTRAST09/29/2021 6:37 PM Signs and Symptoms/Comments: Abdominal pain including RLQ, vomiting, worsening over past week Technique: CT of the abdomen and pelvis was performed following the administrationintravenous contrast; coronal and sagittal multiplanar reconstructionsgenerated. Comparison: CT abdomen pelvis 05/16/2018 Findings: Lower chest: Lung bases are unremarkable. Hepatobiliary: No focal hepatic lesion. The gallbladder is surgicallyabsent. No intra or extrahepatic biliary ductal dilatation. Spleen, pancreas, adrenal glands: The spleen enhances normally. Thepancreas enhances normally. No pancreatic ductal dilatation. The adrenalglands are normal. Kidneys, ureters, bladder: The kidneys enhance symmetrically. Nohydronephrosis or hydronephrosis or nephrolithiasis. The bladder isunremarkable. Uterus, ovaries: The uterus is normal for age. No adnexal mass. Bowel: No bowel obstruction, bowel wall thickening, or acute inflammatorychange. The appendix is normal (coronal #64). Peritoneal cavity / Subperitoneal space: No free air or free fluid. Lymphovascular: The aorta is normal in course and caliber. No enlargedlymph nodes. Abdominal wall: No bowel-containing hernias. Musculoskeletal: No fracture or concerning osseous lesion. 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 No acute abnormality in the abdomen and pelvis. 2. Status post cholecystectomy. I have personally reviewed the images and the above interpretation andagree with the findings. us Omid Azar MD IMG CT ORDERABLES Final Result * POCT CSN BARCODE URINE DIPSTICK (09/29/2021 16:10 EDT) Urine URINE SPECIMEN COLLECTION, CLEAN CATCH / Unknown Urine Collect / Unknown 09/29/2021 16:10 EDT 09/29/2021 16:10 EDT us Omid Azar MD LAB INFO SERVICE AND SUPPORT & PHONE RESULT Final Result [facility] [address] [place] [address] * (ABNORMAL) POCT URINE DIPSTICK, CLINITEK (09/29/2021 16:08 EDT) Color, UA Yellow Yellow 09/29/2021 16:[address] [facility] Clarity, UA Cloudy(A) Clear 09/29/2021 16:[address] [facility] Glucose, UA Negative Negative mg/dL 09/29/2021 16:[address] [facility] Bilirubin, UA Negative Negative 09/29/2021 16:[address] [facility] Ketones, UA 2+(A) Negative mg/dL 09/29/2021 16:[address] [facility] Specific Wilson, Urine >=1.030 1.001 - 1.035 09/29/2021 16:[address] [facility] Blood, UA Negative Negative 09/29/2021 16:[address] [facility] pH, UA 5.5 <=8 09/29/2021 16:[address] [facility] Protein, UA Negative Negative mg/dL 09/29/2021 16:[address] [facility] Urobilinogen, UA 0.2 0.2 - 1.0 EU/dL 09/29/2021 16:[address] [facility] Nitrite, UA Negative Negative 09/29/2021 16:[address] [facility] Leuk Esterase Negative Negative 09/29/2021 16:[address] [facility] HN LAB COMMENT (CLINITEK, UR) Test performed at Emergency Department 09/29/2021 16:[address] [facility] Urine URINE SPECIMEN COLLECTION, CLEAN CATCH / Unknown 09/29/2021 16:08 EDT 09/29/2021 16:10 EDT us Omid Azar MD POINT OF CARE TEST ORDERABLES Final Result [facility] [address] [place] [address] * EKG 12-LEAD (09/29/2021 16:02 EDT) 09/29/2021 16:[address] [facility] - 10/06/2021 12:01 EDT ?[facility] ? Test Date: ?2021-09-29 Pat Name: ? LAKISHA GRIFFITH ?Department: ?? ED ? Room: ? WB03 Gender: ? Female ? 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 Requested By: JJ Enamorado Order Number: [id number] ? Reading MD: ?? LV JESSICA MD ? Measurements Intervals ?[place] ? Rate: ? 64 ? P: ?37 IN: ? 149 ?QRS: ?51 QRSD: ? 97 ? T: ?59 QT: ? 401 ? QTc: ?416 ? Interpretive Statements SINUS RHYTHM WITH SINUS ARRHYTHMIA INDETERMINATE AXIS INCOMPLETE RIGHT BUNDLE BRANCH BLOCK Compared to ECG 06/04/2000 16:29:05 Indeterminate axis now present I reviewed the tracing and have either agreed or edited the findings in this report. Electronically Signed On 10-06-2021 12:01:26 EDT by LV LOPEZ MD. 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 Electronically Signed On 10-06-2021 12:01:26 EDT by LV HOPKINS. us Omid Azar MD CARDIAC ECG ORDERABLES Final R esult [facility] * LIPASE (09/29/2021 15:14 EDT) Lipase 32 <251 U/L 09/29/2021 15:[address] [facility] Blood VENOUS BLOOD / Unknown Venipuncture / Unknown 09/29/2021 15:14 EDT 09/29/2021 15:22 EDT us Omid Azar MD CHEMISTRY & BLOOD GAS ORDERABL ES Final Result [facility] [address] [place] [address] * POCT CSN BARCODE URINE PREG TEST (09/29/2021 15:14 EDT) Urine URINE SPECIMEN COLLECTION, CLEAN CATCH / Unknown Urine Collect / Unknown 09/29/2021 15:14 EDT 09/29/2021 15:14 EDT us Omid Azar MD LAB INFO SERVICE AND SUPPORT & PHONE RESULT Final Result [facility] [address] [place] [address] * (ABNORMAL) COMPREHENSIVE METABOLIC PANEL (CMP) (09/29/2021 15:14 EDT) Sodium 140 136 - 145 mmol/L 09/29/2021 15:41 [facility] Potassium 4.1 3.5 - 5.0 mmol/L 09/29/2021 15:41 [facility] Chloride 103 96 - 110 mmol/L 09/29/2021 15:41 [facility] CO2 Total 24 22 - 32 mmol/L 09/29/2021 15:41 [facility] Glucose 79 70 - 100 mg/dL 09/29/2021 15:41 [facility] BUN 12 10 - 26 mg/dL 09/29/2021 15:41 [facility] Creatinine 0.78 0.52 - 1.04 mg/dL 09/29/2021 15:41 [facility] eGFR 111 >60 mL/min/1.7 3m2 09/29/2021 15:41 [facility] Total Protein 7.8 6.3 - 8.2 g/dL 09/29/2021 15:41 [facility] Albumin 5.2(H) 3.4 - 4.9 g/dL 09/29/2021 15:41 [facility] Alkaline Phosphatase 55 38 - 126 U/L 09/29/2021 15:41 [facility] AST 33 15 - 46 U/L 09/29/2021 15:41 [facility] ALT 21 <35 U/L 09/29/2021 15:41 [facility] Bilirubin, Total 0.6 <1.4 mg/dL 09/30/19 15:41 [facility] Calcium 9.5 8.5 - 10.5 mg/dL 09/29/2021 15:41 [facility] Albumin/Globulin Ratio 2.0 1.0 - 2.5 09/29/2021 15:41 [facility] Anion Gap 13 5 - 14 09/29/2021 15:41 [facility] Blood VENOUS BLOOD / Unknown Venipuncture / Unknown 09/29/2021 15:14 EDT 09/29/2021 15:22 EDT us Omid Azar MD CHEMISTRY & BLOOD GAS ORDERABL ES Final Result [facility] [address] [place] [address] * (ABNORMAL) COMPLETE BLOOD COUNT AND DIFFERENTIAL (09/29/2021 15:14 EDT) WBC 9.20 4.00 - 12.40 K/cmm 09/29/2021 15:38 [facility] RBC 4.61 3.86 - 5.04 M/cmm 09/29/2021 15:38 [facility] Hemoglobin 13.8 11.6 - 15.2 gm/dL 09/29/2021 15:38 [facility] HCT 41.0 34.9 - 44.4 % 09/29/2021 15:38 [facility] MCV 89 81 - 98 fl 09/29/2021 15:38 [facility] MCH 29.9 26.7 - 33.3 pg 09/29/2021 15:38 [facility] MCHC 33.7 32.1 - 35.9 gm/dL 09/29/2021 15:38 [facility] RDW-CV 12.8 <14.7 % 09/29/2021 15:38 [facility] RDW-SD 42.0 <50.4 fl 09/29/2021 15:38 [facility] PLT 270 141 - 377 K/cmm 09/29/2021 15:38 [facility] MPV 9.2(L) 9.5 - 12.7 fl 09/29/2021 15:38 [facility] % Neutrophils 71.5 % 09/29/2021 15:38 [facility] % Lymphocytes 23.0 % 09/29/2021 15:38 [facility] % Monocytes 4.6 % 09/29/2021 15:38 [facility] % Eosinophils 0.2 % 09/29/2021 15:38 [facility] % Basophils 0.5 % 09/29/2021 15:38 [facility] % Immature Grans 0.2 % 09/30/19 15:38 [facility] Absolute Neutrophils 6.57 2.20 - 8.85 K/cmm 09/29/2021 15:38 [facility] Absolute Lymphocytes 2.12 1.09 - 3.30 K/cmm 09/29/2021 15:38 [facility] Absolute Monocytes 0.42 0.10 - 0.80 K/cmm 09/29/2021 15:38 [facility] Absolute Eosinophils 0.02(L) 0.03 - 0.61 K/cmm 09/29/2021 15:38 [facility] ABS Basophils 0.05 0.01 - 0.11 K/cmm 09/29/2021 15:38 [facility] Absolute Immature Grans 0.02 0.00 - 0.06 K/cmm 09/29/2021 15:38 [facility] Type of Differential: Auto 09/29/2021 15:38 [facility] Blood VENOUS BLOOD / Unknown Venipuncture / Unknown 09/29/2021 15:14 EDT 09/29/2021 15:22 EDT us Omid Azar MD PACKAGES & DNA PROBE ORDERABLE S Final Result [facility] [address] [place] [address] * POCT TEST, [facility] (09/29/2021 15:11 EDT) UPT Result Negative Negative 09/29/2021 15:[address] [facility] HN LAB COMMENT ([facility], UPT) Test performed at Emergency Department 09/29/2021 15:[address] [facility] Comment:False negative resul ts may occur in women who are beyond 5-8 weeks gestation. Diagnosis of should be based on a correlation of test results with typical clinical signs and symptoms. Urine URINE SPECIMEN COLLECTION, CLEAN CATCH / Unknown 09/29/2021 15:11 EDT 09/29/2021 15:17 EDT us Omid Azar MD POINT OF CARE TEST ORDERABLES Final Result [facility] [address] [place] [address] documented in this encounter Visit Diagnoses Diagnosis Abdominal pain, unspecified abdominal location- Primary Hematemesis with nausea Non-intractable vomiting with nausea, unspecified vomiting type documented in this encounter Administered Medications Inactive Administered Medications - up to 3 most recent administrations Medication Order MAR Action Action Date Dose Rate Site diphenhydrAMINE (BENADRYL) 50 mg/mL injection 1 dose, Starting on Sat09/29/21 at 1624, Until Sat09/29/21 at 1630 diphenhydrAMINE (BENADRYL) injection 50 mg 50 mg, intravenous, NOW X1, 1 dose, On Sat09/29/21 at 1645, STAT Given 09/29/2021 16:30 EDT haloperidol lactate (HALDOL) injection 2 mg 2 mg, intravenous, NOW X1, 1 dose, On Sat09/29/21 at 1615, STAT Given 09/29/2021 16:11 EDT 2 mg iohexoL (OMNIPAQUE 350) solution 100 mL 100 mL, intravenous, Once in imaging, 1 dose, Starting on Sat09/29/21 at 1823, Until Sat09/29/21 at 1842, Routine, Imaging Protocol Orders Given 09/29/2021 18:42 EDT 95 mL lactated ringers BOLUS 1,000 mL 1,000 mL, intravenous, NOW X1, 1 dose, On Sat09/29/21 at 1500, STAT New Bag 09/29/2021 15:12 EDT 1,000 mL LORazepam (ATIVAN) injection 1 mg 1 mg, intravenous, NOW X1, 1 dose, On Sat09/29/21 at 1730, STAT Given 09/29/2021 17:29 EDT 1 mg documented in this encounter Historical Medications * This list may reflect changes made after this encounter. metroNIDAZOLE (FLAGYL) 250 mg tablet Take 500 mg by mouth 2 times daily. promethazine (PHENERGAN) 25 mg tablet Take 25 mg by mouth every 8 hours as needed for Nausea. doxycycline (VIBRA-TABS) 100 mg tablet Take 100 mg by mouth 2 times daily. added in this encounter Active and Recently Administered Medications Times are shown in EDT. Scheduled Medication Order 09/27/2021 09/28/2021 09/29/2021 diphenhydrAMINE (BENADRYL) injection 50 mg (COMPLETED) 50 mg, intravenous, NOW X1, 1 dose, On Sat09/29/21 at 1645, STAT 1630 (Given - Provid er: Tricia Alonzo RN) haloperidol lactate (HALDOL) injection 2 mg (COMPLETED) 2 mg, intravenous, NOW X1, 1 dose, On Sat09/29/21 at 1615, STAT 1611 (Given - Provid er: Tricia Alonzo RN) iohexoL (OMNIPAQUE 350) solution 100 mL (COMPLETED) 100 mL, intravenous, Once in imaging, 1 dose, Starting on Sat09/29/21 at 1823, Until Sat09/29/21 at 1842, Routine, Imaging Protocol Orders 1842 (Given - Provid er: Mera Woodward) lactated ringers BOLUS 1,000 mL (COMPLETED) 1,000 mL, intravenous, NOW X1, 1 dose, On Sat09/29/21 at 1500, STAT 1512 (New Bag - Prov ider: Anais Leslie RN)1612 (IV Stopped - Provider: Tricia Alonzo RN) LORazepam (ATIVAN) injection 1 mg (COMPLETED) 1 mg, intravenous, NOW X1, 1 dose, On Sat09/29/21 at 1730, STAT 1729 (Given - Provid er: Anais Leslie RN) documented in this encounter Care Teams Wind Instrument Repairer Relationship Specialty Start Date End Date Solange Desai PA-C [address] [place] [address] PCP - General Family Medicine - Primary Care 09/29/21 Yovanny Wilson MD 09/07/16 documented as of this encounter
--- OUTSIDE RECORDS SUMMARY | 2024-06-06 06:13 | XMS_ITS | Encounter Summary ---
Author Organization [facility] Address [address] [place] [address] Care Team Providers Care Front End Technician Name Role Phone Unavailable Primary Care Provider Unavailabl e Encounter Details Date Type Department Care Team (Late st Contact Info) Description 04/11/2004 8:59 EST - 04/11/2004 11:59 EST Hospital Encounter [facility] [address] [place] [address] Brittany Alberto MD [address] [place] [address] Discharge Disposition: Auto Discharge Social History Tobacco [...] Associated Diagnosis Comments RAD US RETROPERITONEAL COMPLETE Routine 04/11/2004 11:15 EST documented in this encounter Results * RAD US RETROPERITONEAL COMPLETE (04/11/2004 11:15 EST) Anatomical Region Laterality Modality Other 04/11/2004 11:1 5 EST Impressions 12/23/2008 14:59 EDT IMPRESSION: 1. No interval growth of the left kidney. 2. Good interval growth of the right kidney. 3. No hydronephrosis is seen. 4. Large postvoid residual in the urinary bladder of 29.3 ml. /alice Narrative 12/23/2008 14:59 EDT RENAL U/S- H/O UTI AND REFLUX R/O SCARRING, CHECK KIDNEY SIZE AND GROW TH RETROPERITONEAL ULTRASOUND: 04/11/04 CLINICAL HISTORY: History of UTI and reflux, check kidney size and growth. COMPARISON: 03/12/03 FINDINGS: The right kidney measures 6.7 cm longitudinally and is at the 50th percentile in length for age demonstrating good interval growth from the last exam. The left kidney measures 6.6 cm longitudinally and is at the 50th percentile in length for age, but has not changed in size since the last exam one year ago. There is good cortical medullary differentiation. There is no hydronephrosis on either side. No mass is seen. Bilateral ureteral jets are seen within the urinary bladder. There is a huge postvoid residual volume in the urinary bladder of 29.3 ml. Procedure Note Solange Juarez MD - 12/23/2008 RENAL U/S- H/O UTI AND REFLUX R/O SCARRING, CHECK KIDNEY SIZE AND GROW TH RETROPERITONEAL ULTRASOUND: 04/11/04 CLINICAL HISTORY: History of UTI and reflux, check kidney size and growth. COMPARISON: 03/12/03 FINDINGS: The right kidney measures 6.7 cm longitudinally and is at the 50th percentile in length for age demonstrating good interval growth from the last exam. The left kidney measures 6.6 cm longitudinally and is at the 50th percentile in length for age, but has not changed in size since the last exam one year ago. There is good cortical medullary differentiation. There is no hydronephrosis on either side. No mass is seen. Bilateral ureteral jets are seen within the urinary bladder. There is a huge postvoid residual volume in the urinary bladder of 29.3 ml. IMPRESSION IMPRESSION: 1. No interval growth of the left kidney. 2. Good interval growth of the right kidney. 3. No hydronephrosis is seen. 4. Large postvoid residual in the urinary bladder of 29.3 ml. /alice us Brittany Alberto MD IMG US ORDERABLES Final Result documented in this encounter Visit Diagnoses Not on filedocumented in this encounter
--- OUTSIDE RECORDS SUMMARY | 2024-06-06 06:13 | XMS_ITS | Encounter Summary ---
Author Organization [facility] Address [address] [place] [address] Care Team Providers Care Fish Roe Processor Name Role Phone Giuliana Berrios INTERNAL MEDICINE NURSE PRACTITIONER Primary Care Provider Yovanny Wilson MD Unavailable Unavailable Encounter Details Date Type Department Care Team (Late st Contact Info) Description 09/07/2016 Results Only Imaging [facility] [phone] Unknown, Provider, MD Social History Tobacco Use Types Packs/Day Years Used Date Smoking Tobacco: Never Assessed Comments Unknown Sex and Gender Information Value Date Recorded Sex Assigned at Not on file Legal Sex Female 18:24 EST Gender Identity Female 09/29/2021 14:29 EDT Sexual Orientation Not on file documented as of this encounter Plan of Treatment Pending Results Name Type Priority Associated Diagnoses Date /Time OUTSIDE IMAGES - CT NEURO Imaging 09/07/2016 9:51 EDT documented as of this encounter Visit Diagnoses Not on filedocumented in this encounter Care Teams Fish Roe Processor Relationship Specialty Start Date End Date Giuliana Berrios INTERNAL MEDICINE NURSE PRACTITIONER [address] [place] [address] PCP - General 09/07/16 03/26/18 Yovanny Wilson MD [address] [place] [address] 09/07/16 documented as of this encounter
--- OUTSIDE RECORDS SUMMARY | 2024-06-06 06:13 | XMS_ITS | Encounter Summary ---
Author Organization [facility] Address [address] [place] [address] Care Team Providers Care Coordinate Measuring Machine Operator Name Role Phone Unavailable Primary Care Provider Unavailabl e Encounter Details Date Type Department Care Team (Late st Contact Info) Description 02/02/2005 Results Only [facility] - [facility] [address] [place] [address] Yovanny Wilson MD Social History Tobacco Use Types Packs/Day [...] Procedure Name Priority Date/Time Associated Diagnosis Comments OVA/PARASITE EXAM Routine 02/02/2005 13: 24 EDT documented in this encounter Results * OVA/PARASITE EXAM (02/02/2005 13:24 EDT) Specimen Description Feces [facility] Result No ova and parasites seen. (If Cryptosporidium, Cyclospora, or microsporidium are suspected, specific tests must be requested.) [facility] Report Status Final [id number] [facility] 02/02/2005 13:2 4 EDT 02/02/2005 20:42 EDT Yovanny Wilson MD MICROBIOLOGY - GENERAL ORDERAB LES Final Result [facility] [address] [place] [address] documented in this encounter Visit Diagnoses Not on filedocumented in this encounter
--- OUTSIDE RECORDS SUMMARY | 2024-06-06 06:13 | XMS_ITS | Encounter Summary ---
Author Organization [facility] Address [address] [place] [address] Care Team Providers Care Coffee Weigher Name Role Phone Yovanny Wilson MD Unavailable Unavailable Unknown, Provider MD Primary Care Provider UnaSolange Main PA-C Primary Care Provider [phone] Encounter Details Date Type Department Care Team (Late st Contact Info) Description 03/30/2020 Lab Requisition [facility] Pathology & Laboratory Medicine - [facility] [address] [place] [address] Outr Resulting Lab, Provider Social History Tobacco [...] Comments CHLAMYDIA/N. GONORRHOEAE AMPLIFIED NUCLEIC ACID Routine 03/30/2020 11:08 EST documented in this encounter Results * CHLAMYDIA/N. GONORRHOEAE AMPLIFIED RNA (03/30/2020 11:08 EST) Neisseria gonorrhoeae Result Negative Negative 03/31/2020 14:43 EST [facility] Chlamydia trachomatis Result Negative Negative 03/31/2020 14:43 EST [facility] Swab ENTIRE VAGINA / Unknown 03/30/2020 11:08 EST 03/30/2020 23:25 EST us Provider Outr Resulting Lab MICROBIOLOGY - GENER AL ORDERABLES Final Result [facility] [address] [place] [address] documented in this encounter Visit Diagnoses Not on filedocumented in this encounter Care Teams Coffee Weigher Relationship Specialty Start Date End Date Unknown, MD Brennon PCP - General 03/27/18 09/28/21 Solange Desai, PARandyC [address] [place] [address] PCP - General Family Medicine - Primary Care 09/29/21 Yovanny Wilson MD 09/07/16 documented as of this encounter
--- OUTSIDE RECORDS SUMMARY | 2024-06-06 06:13 | XMS_ITS | Encounter Summary ---
Author Organization [facility] Address [address] [place] [address] Care Team Providers Care Clerical Coordinator Name Role Phone Unavailable Primary Care Provider Unavailabl e Encounter Details Date Type Department Care Team (Late st Contact Info) Description 03/12/2003 7:06 EST - 03/12/2003 11:59 EST Hospital Encounter [facility] [address] [place] [address] Brittany Alberto MD [address] [place] [address] Discharge Disposition: Auto Discharge Social History Tobacco [...] Associated Diagnosis Comments BACTERIAL CULTURE, URINE Routine 003 11:46 EST FL VOIDING CYSTOURETHROGRAM Routine 03/12/2003 10:15 EST RAD US RETROPERITONEAL COMPLETE Routine 03/12/2003 9:09 EST documented in this encounter Results * BACTERIAL CULTURE, URINE (03/12/2003 11:46 EST) Specimen Description Urine [facility] Result No growth [facility] Report Status Final [id number] [facility] 03/12/2003 11:4 6 EST 03/12/2003 11:46 EST Brittany Alberto MD MICROBIOLOGY - GENERAL ORDERABL ES Final Result Performing Organization Address City/State/[facility] Co de Phone Number [facility] [address] [place] [address] * FL VOIDING CYSTOURETHROGRAM (03/12/2003 10:15 EST) Anatomical Region Laterality Modality Other 03/12/2003 10:1 5 EST Impressions 12/20/2008 2:31 EDT IMPRESSION: 1. Left Grade III vesicoureteric reflux unchanged from prior examination. 2. Right Grade II vesicoureteric reflux. 3. Bladder volume lower than on prior examination. 4. Reflux seen at 30cc, lower volume than on prior examination. FINDINGS: After sterile insertion of an 8 [place]iboutian feeding tube into the urinary bladder, a 100cc of contrast was gravity instilled into the bladder. Predicted opacity for a child of this age is 150cc. At relatively low bladder volume, approximately 30cc, vesicoureteric reflux is seen initially on the right then on the left. The ureters were moderately distended, although no tortuous. Grade III vesicoureteric reflux was seen on the left into what appear to be a single collecting system, Grade II on the right. The site of insertion of the right and left ureter appeared normal. A small amount of contrast noted in the urinary bladderpost void. D 03/12/03 T 03/15/03 /jl Narrative 12/20/2008 2:31 EDT RENAL U/S AND [facility], HX OF VESICOURETERAL REFLUX AND UTI R/O RELUC, SCAR RING, CHECK KIDNEY GROWTH [facility] 03/12/03 Procedure Note Elise Santoyo MD - 12/20/2008 RENAL U/S AND [facility], HX OF VESICOURETERAL REFLUX AND UTI R/O RELUC, SCAR RING, CHECK KIDNEY GROWTH [facility] 03/12/03 IMPRESSION IMPRESSION: 1. Left Grade III vesicoureteric reflux unchanged from prior examination. 2. Right Grade II vesicoureteric reflux. 3. Bladder volume lower than on prior examination. 4. Reflux seen at 30cc, lower volume than on prior examination. FINDINGS: After sterile insertion of an 8 Djiboutian feeding tube into the urinary bladder, a 100cc of contrast was gravity instilled into the bladder. Predicted opacity for a child of this age is 150cc. At relatively low bladder volume, approximately 30cc, vesicoureteric reflux is seen initially on the right then on the left. The ureters were moderately distended, although no tortuous. Grade III vesicoureteric reflux was seen on the left into what appear to be a single collecting system, Grade II on the right. The site of insertion of the right and left ureter appeared normal. A small amount of contrast noted in the urinary bladderpost void. D 03/12/03 T 03/15/03 /zachary us Brittany Alberto MD IMG FLUOROSCOPY ORDERABLES Farzana l Result * RAD US RETROPERITONEAL COMPLETE (03/12/2003 9:09 EST) Anatomical Region Laterality Modality Other 03/12/2003 9:09 EST Impressions 12/20/2008 2:31 EDT IMPRESSION: 1. No hydronephrosis. 2. Normal interval growth right and left kidneys. FINDINGS: The right kidney is 6.3cm (50th percentile) and the left 6.8cm (60th percentile). Both appear to be single collecting systems. Good corticomedullary differentiation. No focal abnormality. There is no dilatation in the collecting system. The urinary bladder is moderately distended and, postvoid, there is a moderate amount of urine remaining within the urinary bladder. The urinary bladder wall is mildly thickened, possibly increased from prior examination. /didier Narrative 12/20/2008 2:31 EDT RENAL U/S AND [facility], HX OF VESICOURETERAL REFLUX AND UTI R/O RELUC, SCAR RING, CHECK KIDNEY GROWTH RENAL ULTRASOUND: 03/12/03 Procedure Note Elise Santoyo MD - 12/20/2008 RENAL U/S AND [facility], HX OF VESICOURETERAL REFLUX AND UTI R/O RELUC, SCAR RING, CHECK KIDNEY GROWTH RENAL ULTRASOUND: 03/12/03 IMPRESSION IMPRESSION: 1. No hydronephrosis. 2. Normal interval growth right and left kidneys. FINDINGS: The right kidney is 6.3cm (50th percentile) and the left 6.8cm (60th percentile). Both appear to be single collecting systems. Good corticomedullary differentiation. No focal abnormality. There is no dilatation in the collecting system. The urinary bladder is moderately distended and, postvoid, there is a moderate amount of urine remaining within the urinary bladder. The urinary bladder wall is mildly thickened, possibly increased from prior examination. /didier us Brittany Alberto MD IMG US ORDERABLES Final Result documented in this encounter Visit Diagnoses Not on filedocumented in this encounter
--- OUTSIDE RECORDS SUMMARY | 2024-06-06 06:13 | XMS_ITS | Encounter Summary ---
Author Organization [facility] Address [address] [place] [address] Care Team Providers Care Gun Mechanic Name Role Phone Yovanny Wilson MD Unavailable Unavailable Unknown, Provider MD Primary Care Provider Solange Chisholm PA-C Primary Care Provider [phone] Encounter Details Date Type Department Care Team (Late st Contact Info) Description 03/21/2021 Lab Requisition [facility] Pathology & Laboratory Medicine - [facility] [address] [place] [address] Outr Resulting Lab, Provider Social History Tobacco [...] Comments CHLAMYDIA/N. GONORRHOEAE AMPLIFIED NUCLEIC ACID Routine 03/21/2021 16:41 EST documented in this encounter Results * CHLAMYDIA/N. GONORRHOEAE AMPLIFIED RNA (03/21/2021 16:41 EST) Neisseria gonorrhoeae Result Negative Negative 03/22/2021 14:08 EST [facility] Chlamydia trachomatis Result Negative Negative 03/22/2021 14:08 EST [facility] Swab ENTIRE VAGINA / Unknown 03/21/2021 16:41 EST 03/21/2021 21:20 EST us Provider Outr Resulting Lab MICROBIOLOGY - GENER AL ORDERABLES Final Result Performing Organization Address City/State/[facility] Co de Phone Number [facility] [address] [place] [address] documented in this encounter Visit Diagnoses Not on filedocumented in this encounter Care Teams Gun Mechanic Relationship Specialty Start Date End Date Unknown, MD Brennon PCP - General 03/27/18 09/28/21 Solange Desai, PA-C [address] [place] [id number] PCP - General Family Medicine - Primary Care 09/29/21 Yovanny Wilson MD 09/07/16 documented as of this encounter
--- OUTSIDE RECORDS SUMMARY | 2024-06-06 06:13 | XMS_ITS | Encounter Summary ---
Author Organization [facility] Address [address] [place] [address] Care Team Providers Care Maintenance Worker Name Role Phone AgustinaGiuliana alvarez Trena MAINTENANCE MECHANIC ELEVATORS Primary Care Provider [phone] Yovanny Wilson MD Unavailable Unavailable Reason for Visit * Reason Onset Date Comments Results 10/26/2016 Encounter Details Date Type Department Care Team (Late st Contact Info) Description 10/26/2016 Telephone [facility] Pediatric Neurology - [address] [address] Dong Swain MD [address] [place] [phone] Results Social History Tobacco Use Types Packs/Day Years [...] encounter Miscellaneous Notes * Telephone Encounter - Mindy Reyes - 10/26/[address] Swain's direction to Caitlyn, I called the family to let them know they MRI was normal. I invited her to CB with any questions or concerns. Mom voiced understanding. documented in this encounter Plan of Treatment Not on file documented as of this encounter Visit Diagnoses Not on filedocumented in this encounter Care Teams Maintenance Worker Relationship Specialty Start Date End Date Giuliana Berrios NP [address] [place] [address] PCP - General 09/07/16 03/26/18 Yovanny Wilson MD [address] [place] [address] 09/07/16 documented as of this encounter
--- OUTSIDE RECORDS SUMMARY | 2024-06-06 06:13 | XMS_ITS | Encounter Summary ---
Author Organization [facility] Address [address] [place] [address] Care Team Providers Care Casing Crew Name Role Phone Unavailable Primary Care Provider Unavailabl e Encounter Details Date Type Department Care Team (Late st Contact Info) Description 1999 14:58 EDT - 1999 11:59 EDT Hospital Encounter [facility] Intensive Care Unit [address] [place], [place] [address] Bon Erazo MD MPH [address] [facility], [facility], [place], [address] [place] [address] Discharge Disposition: Home-Health Care Svc Social History Tobacco Use Types Packs/Day Years Used Date Smoking Tobacco: Never Assessed Comments Unknown Sex and Gender Information Value Date Recorded Sex Assigned at Not on file Legal Sex Female 18:24 EST Gender Identity Female 09/29/2021 14:29 EDT Sexual Orientation Not on file documented as of this encounter Discharge Disposition Disposition Code Departure Means Destination Home-Health Care Svc documented in this encounter Plan of Treatment Not on file documented as of this encounter Procedures Procedure Name Priority Date/Time Associated Diagnosis Comments GGT Routine 1999 17:55 EDT HEPATIC FUNCTION PANEL (ALB,ALK PHOS,ALT,AST,DBIL,TOT GENESIS,TOT PROT) Routine 1999 17:55 EDT CREATININE Routine 1999 5:05 EDT BUN Routine 1999 5:05 EDT BILIRUBIN, Routine 1999 5: 05 EDT ELECTROLYTES Routine 1999 5:05 EDT PORTABLE CHEST 1 VIEW Routine 1999 15:15 EDT ABDOMEN AP 1 VIEW Routine 1999 15: 15 EDT BLOOD GAS, EG6 ISTAT Routine 1999 12:32 EDT documented in this encounter Results * (ABNORMAL) LIVER FUNCTION TESTS (1999 17:55 EDT) Albumin 3.3 2.6 - 3.6 g/dl [facility] Total Protein 6.2 5.4 - 7.0 g/dl [facility] Total Alkaline Phosphatase 78(L) 145 - 320 U/L [facility] ALT 17 6 - 50 U/L [facility] AST 46 23 - 65 U/L [facility] Unconjugated Bilirubin 9.1 0.6 - 10.5 mg/dl [facility] Conjugated Bilirubin 0.0 0.0 - 0.6 mg/dl [facility] Bilirubin, Total 8.1 mg/dl [facility] 1999 17:5 5 EDT 1999 17:56 EDT us Bon Erazo MD MPH CHEMISTRY & BLOOD GAS O RDERABLES Final Result [facility] [address] [place] [address] * GGT (1999 17:55 EDT) GGT 128 30 - 240 U/L [facility] 1999 17:5 5 EDT 1999 17:56 EDT Bon Erazo MD MPH CHEMISTRY & BLOOD GAS O RDERABLES Final Result Performing Organization Address [facility] Co de Phone Number [facility] [address] [place] [address] * BILIRUBIN (1999 5:05 EDT) Conjugated Bilirubin 0.0 0.0 - 0.6 mg/dl [facility] Unconjugated Bilirubin 9.5 0.6 - 10.5 mg/dl [facility] Calculated Total Bilirubin 9.5 0.6 - 11.1 mg/dl [facility] 1999 5:05 EDT 1999 5:05 EDT Bon Erazo MD MPH CHEMISTRY & BLOOD GAS O RDERABLES Final Result Performing Organization Address [facility] de Phone Number [facility] [address] [place] [address] * (ABNORMAL) ELECTROLYTES (1999 5:05 EDT) Sodium 143 136 - 145 mEq/L [facility] Potassium 3.9(L) 4.0 - 6.4 mEq/L [facility] Chloride 107 96 - 110 mEq/L [facility] CO2 24 24 - 30 mEq/L [facility] 1999 5:05 EDT 1999 5:05 EDT Bon Erazo MD MPH CHEMISTRY & BLOOD GAS O RDERABLES Final Result Performing Organization Address [facility] Co de Phone Number [facility] [address] [place] [address] * CREATININE (1999 5:05 EDT) Creatinine 0.5 0.3 - 1.0 mg/dl [facility] 1999 5:05 EDT 1999 5:05 EDT Bon Erazo MD MPH HISTORICAL LAB FOR SQ L OAD Final Result Performing Organization Address City/[facility]/ZIP Co de Phone Number [facility] [address] [place] [address] * BUN (1999 5:05 EDT) BUN 8 2 - 19 mg/dl [facility] 1999 5:05 EDT 1999 5:05 EDT Bon Erazo MD MPH CHEMISTRY & BLOOD GAS O RDERABLES Final Result Performing Organization Address [facility] Co de Phone Number [facility] [address] [place] [address] * ABDOMEN AP 1 VIEW (1999 15:15 EDT) Anatomical Region Laterality Modality Other 1999 15:1 5 EDT Impressions 03/01/2009 17:42 EST IMPRESSION: 1. Pulmonary vascular prominence without focal abnormalities. 2. Prominence to the liver. D-11/15/99 T-11/16/99/lg Addendum: The ICD9/diagnostic code has been changed from 429.9 to 770.80 for physician billing. The text has not been altered. Narrative 03/01/2009 17:42 EST ? CHD, ?DOSRY EPISODE R/O CHD CHEST AND ABDOMEN 99 1515 Hours FINDINGS: Supine view of the chest and abdomen shows mildly elevated lung volumes. The cardiomediastinal silhouette is normal. Central pulmonary vessels are prominent. The liver appears enlarged. Normal sidus. Bowel-gas pattern normal. No skeletal anomalies seen. Procedure Note Elise Santoyo MD - 03/01/2009 ? CHD, ?DOSRY EPISODE R/O CHD CHEST AND ABDOMEN 99 1515 Hours FINDINGS: Supine view of the chest and abdomen shows mildly elevated lung volumes. The cardiomediastinal silhouette is normal. Central pulmonary vessels are prominent. The liver appears enlarged. Normal sidus. Bowel-gas pattern normal. No skeletal anomalies seen. IMPRESSION IMPRESSION: 1. Pulmonary vascular prominence without focal abnormalities. 2. Prominence to the liver. D-11/15/99 T-11/16/99/lg Addendum: The ICD9/diagnostic code has been changed from 429.9 to 770.80 for physician billing. The text has not been altered. Bon Erazo MD MPH [facility] DIAGNOSTIC IMAGING ORDERABLES Final Result * PORTABLE CHEST 1 VIEW (1999 15:15 EDT) Anatomical Region Laterality Modality Other 1999 15:1 5 EDT Narrative 03/01/2009 17:42 EST ? CHD ??? DOSRY EPISODE R/O CHD Procedure Note Elise Santoyo MD - 03/01/2009 ? CHD ? DOSRY EPISODE R/O CHD Bon Erazo MD MPH [facility] DIAGNOSTIC IMAGING ORDERABLES Final Result * (ABNORMAL) BLOOD GAS, EG6 ISTAT (1999 12:32 EDT) pH, i-STAT 7.46(H) 7.31 - 7.44 [facility] pCO2, i-STAT 34 26 - 43 mmHg [facility] pO2, i-STAT 362(H) 57 - 94 mmHg [facility] TCO2, i-STAT 25 mEq/L [facility] O2 Saturation 100 % [facility] Sodium, i-STAT 145 136 - 145 mEq/L [facility] Potassium, i-STAT 4.5 4.0 - 6.4 mEq/L [facility] Hematocrit,iSTA T 50 % [facility] Temperature 36.7 C [facility] FIO2 100 [facility] Sample Type Arterial specimen [facility] 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
--- OUTSIDE RECORDS SUMMARY | 2024-06-06 06:13 | XMS_ITS | Encounter Summary ---
Author Organization [facility] Address [address] [place] [address] Care Team Providers Care Senior Painter Name Role Phone Unavailable Primary Care Provider Unavailabl e Encounter Details Date Type Department Care Team (Late st Contact Info) Description 02/25/2001 8:17 EST - 02/25/2001 11:59 EST Hospital Encounter [facility] [address] [place] [address] Brittany Alberto MD [address] [place] [address] Discharge Disposition: Auto Discharge Social History Tobacco [...] Diagnosis Comments RAD US RETROPERITONEAL COMPLETE Routine 09/19/2001 15:08 EDT BACTERIAL CULTURE, URINE Routine 001 11:10 EST FL VOIDING CYSTOURETHROGRAM Routine 02/25/2001 10:45 EST RAD US RETROPERITONEAL COMPLETE Routine 02/25/2001 9:14 EST documented in this encounter Results * RAD US RETROPERITONEAL COMPLETE (09/19/2001 15:08 EDT) Anatomical Region Laterality Modality Other 09/19/2001 15:0 8 EDT Narrative 02/02/2009 4:58 EDT HX VU REFLUX GRADE 3 R/O HYDRO, SCARRING/CHECK RENAL GROWTH RENAL ULTRASOUND 09/19/2001 15:08 IMPRESSION: Normal renal ultrasound. FINDINGS: Right kidney is 5.8 cm (30th percentile) and the left is 6.1 cm (40th percentile). There has been no demonstrable increase in growth when compared to the prior examination of 02/2001, however, when compared to the prior examination from May, there has been appropriate interval growth. Both appear to be single collecting systems. Good cortical medullary differentiation. No focal abnormality, no hydronephrosis. The left distal ureter is visualized measuring 3 mm AP, significance doubtful. Bladder is moderately distended and has a normal appearance. /formerly [facility] Procedure Note Elise Santoyo MD - 02/02/2009 HX VU REFLUX GRADE 3 R/O HYDRO, SCARRING/CHECK RENAL GROWTH RENAL ULTRASOUND 09/19/2001 15:08 IMPRESSION: Normal renal ultrasound. FINDINGS: Right kidney is 5.8 cm (30th percentile) and the left is 6.1 cm (40th percentile). There has been no demonstrable increase in growth when compared to the prior examination of 02/2001, however, when compared to the prior examination from May, there has been appropriate interval growth. Both appear to be single collecting systems. Good cortical medullary differentiation. No focal abnormality, no hydronephrosis. The left distal ureter is visualized measuring 3 mm AP, significance doubtful. Bladder is moderately distended and has a normal appearance. /formerly [facility] Brittany Alberto MD [facility] [place] ORDERABLES Final Result * BACTERIAL CULTURE, URINE (02/25/2001 11:10 EST) Specimen Description Urine [facility] Result No growth [facility] Report Status Final [id number] [facility] 02/25/2001 11:1 0 EST 02/25/2001 11:10 EST us Brittany Alberto MD MICROBIOLOGY - GENERAL ORDERABL ES Final Result [facility] [address] [place] [address] * FL VOIDING CYSTOURETHROGRAM (02/25/2001 10:45 EST) Anatomical Region Laterality Modality Other 02/25/2001 10:4 5 EST Impressions 03/02/2009 1:07 EST IMPRESSION: 1) Bilateral grade 3-4 vesicoureteric reflux. No evidence of obstruction identified. 2) Maximum capacity of 250 cc. /sb Narrative 03/02/2009 1:07 EST RENAL U/S AND VCU, BILATERAL REFLUX R/O RESOLUTION OF REFLUX AND CHECK ING KIDNEY GROWTH VUC02/25/01, 0930 No comparison. HISTORY: The patient is a [id number] female with a report of a previous VCUG done at an outside institution. We do not have that examination at our disposal. The previous exam reportedly found bilateral grade 3 reflux. FINDINGS: The patient's urinary bladder was catheterized with an 8-Canadian feeding tube. Initial early filling view of the bladder shows no evidence of filling defect. There was obvious reflux seen early in the examination, first on the left and shortly after on the right. Bilateral grade 3-4 reflux is identified. There is some redundancy of both ureters in the UPJ region. Single collecting systems and normal ureter insertion sites are seen bilaterally. The predicted capacity for this age is 90 cc. The patient was filled to a total capacity of 250 cc. The patient voided intermittently and spontaneously, but did not void completely. The urinary bladder was then drained via the catheter, which was left in place for the entire exam. After drainage of the urinary bladder and placement of the patient in an upright position, prompt and spontaneous bilateral drainage of both collecting systems was noted. Procedure Note Jaciel Walters MD / Elise Santoyo MD - 03/02/2009 RENAL U/S AND VCU, BILATERAL REFLUX R/O RESOLUTION OF REFLUX AND CHECK ING KIDNEY GROWTH VUC02/25/01, 0930 No comparison. HISTORY: The patient is a [id number] female with a report of a previous VCUG done at an outside institution. We do not have that examination at our disposal. The previous exam reportedly found bilateral grade 3 reflux. FINDINGS: The patient's urinary bladder was catheterized with an 8-Canadian feeding tube. Initial early filling view of the bladder shows no evidence of filling defect. There was obvious reflux seen early in the examination, first on the left and shortly after on the right. Bilateral grade 3-4 reflux is identified. There is some redundancy of both ureters in the UPJ region. Single collecting systems and normal ureter insertion sites are seen bilaterally. The predicted capacity for this age is 90 cc. The patient was filled to a total capacity of 250 cc. The patient voided intermittently and spontaneously, but did not void completely. The urinary bladder was then drained via the catheter, which was left in place for the entire exam. After drainage of the urinary bladder and placement of the patient in an upright position, prompt and spontaneous bilateral drainage of both collecting systems was noted. IMPRESSION IMPRESSION: 1) Bilateral grade 3-4 vesicoureteric reflux. No evidence of obstruction identified. 2) Maximum capacity of 250 cc. /jenna us Brittany Alberto MD IMG FLUOROSCOPY ORDERABLES Farzana l Result * RAD US RETROPERITONEAL COMPLETE (02/25/2001 9:14 EST) Anatomical Region Laterality Modality Other 02/25/2001 9:14 EST Narrative 03/02/2009 1:07 EST RENAL U/S AND VCU, BILATERAL REFLUX R/O RESOLUTION OF REFLUX AND CHECK ING KIDNEY GROWTH RETROPERITONEAL COMPLETE PEDIATRIC ULTRASOUND DATE: 02/25/2001 TIME: 0815 CLINICAL INDICATION: Renal ultrasound NVCU; bilateral renal reflux; evaluate resolution of reflux and check kidney growth; comparison is made to previous renal ultrasound dated 06/04/2000. DESCRIPTION: Real-time ultrasound examination was performed of the kidneys. The right kidney measures 6.2 cm in length, which is the 50th percentile. The left kidney measures 6.3 cm in length, which is the 50th percentile. There has been normal interval growth of both kidneys. There is good corticomedullary differentiation with no focal abnormalities identified. Hydronephrosis is not identified. The distended bladder is unremarkable. IMPRESSION: Normal renal ultrasound with normal interval growth. /law Procedure Note Carroll Platt MD / Elise Santoyo MD - 03/02/2009 RENAL U/S AND VCU, BILATERAL REFLUX R/O RESOLUTION OF REFLUX AND CHECK ING KIDNEY GROWTH RETROPERITONEAL COMPLETE PEDIATRIC ULTRASOUND DATE: 02/25/2001 TIME: 814 CLINICAL INDICATION: Renal ultrasound NVCU; bilateral renal reflux; evaluate resolution of reflux and check kidney growth; comparison is made to previous renal ultrasound dated 06/04/2000. DESCRIPTION: Real-time ultrasound examination was performed of the kidneys. The right kidney measures 6.2 cm in length, which is the 50th percentile. The left kidney measures 6.3 cm in length, which is the 50th percentile. There has been normal interval growth of both kidneys. There is good corticomedullary differentiation with no focal abnormalities identified. Hydronephrosis is not identified. The distended bladder is unremarkable. IMPRESSION: Normal renal ultrasound with normal interval growth. /law Brittany Alberto MD IMG US ORDERABLES Final Result documented in this encounter Visit Diagnoses Not on filedocumented in this encounter
--- OUTSIDE RECORDS SUMMARY | 2024-06-06 06:13 | XMS_ITS | Encounter Summary ---
Author Organization [facility] Address [address] [place] [address] Care Team Providers Care Dam Tender Name Role Phone Yovanny Wilson MD Unavailable Unavailable Unknown, Provider MD Primary Care Provider UnaSolange Main PA-C Primary Care Provider [phone] Encounter Details Date Type Department Care Team (Late st Contact Info) Description 12/04/2019 Lab Requisition [facility] Pathology & Laboratory Medicine - [facility] [address] [place] [address] Outr Resulting Lab, Provider Social History Tobacco [...] Comments CHLAMYDIA/N. GONORRHOEAE AMPLIFIED NUCLEIC ACID Routine 12/04/2019 9:43 EDT documented in this encounter Results * CHLAMYDIA/N. GONORRHOEAE AMPLIFIED RNA (12/04/2019 9:43 EDT) Neisseria gonorrhoeae Result Negative Negative 12/07/2019 15:34 EDT [facility] Chlamydia trachomatis Result Negative Negative 12/07/2019 15:34 EDT [facility] Swab ENTIRE VAGINA / Unknown Swab / Unknown 12/04/2019 9:43 EDT 12/04/2019 21:26 EDT us Provider Outr Resulting Lab MICROBIOLOGY - GENER AL ORDERABLES Final Result Performing Organization Address City/State/[facility] Co de Phone Number [facility] [address] [place] [address] documented in this encounter Visit Diagnoses Not on filedocumented in this encounter Care Teams Dam Tender Relationship Specialty Start Date End Date Unknown, Brennon, PCP - General 03/27/18 09/28/21 Solange Desai, PA-C [address] [place] [id number] PCP - General Family Medicine - Primary Care 09/29/21 Yovanny Wilson MD 09/07/16 documented as of this encounter
--- OUTSIDE RECORDS SUMMARY | 2024-06-06 06:13 | XMS_ITS | Encounter Summary ---
Author Organization [facility] Address [address] [place] [address] Care Team Providers Care Roller Skater Name Role Phone Unavailable Primary Care Provider Unavailabl e Encounter Details Date Type Department Care Team (Late st Contact Info) Description 06/03/2000 15:32 EST - 06/04/2000 11:59 EST Hospital Encounter [facility] Pediatric Unit [address] [place], [place] [phone] Brittany Alberto MD [address] [place] [phone] Discharge Disposition: Home or Self Care Social [...] Code Departure Means Destination Home or Self Care documented in this encounter Plan of Treatment Not on file documented as of this encounter Procedures Procedure Name Priority Date/Time Associated Diagnosis Comments RAD US RETROPERITONEAL COMPLETE Routine 06/04/2000 11:08 EST documented in this encounter Results * RAD US RETROPERITONEAL COMPLETE (06/04/2000 11:08 EST) Anatomical Region Laterality Modality Other 06/04/2000 11:0 8 EST Impressions 03/01/2009 19:46 EST IMPRESSION: 1) Normal renal ultrasound FINDINGS: The right kidney is 5.1cm (30th percentile) and the left 5.5cm (50th percentile). Both appear to be single collecting systems. Good corticomedullary differentiation with no focal abnormality. No hydronephrosis. The bladder has a normal appearance. /courtney Narrative 03/01/2009 19:46 EST 6month old with bilat vur continues to have utis r/o interval change RENAL ULTRASOUND 06/04/00 Procedure Note Elise Santoyo MD - 03/01/2009 6month old with bilat vur continues to have utis r/o interval change RENAL ULTRASOUND 06/04/00 IMPRESSION IMPRESSION: 1) Normal renal ultrasound FINDINGS: The right kidney is 5.1cm (30th percentile) and the left 5.5cm (50th percentile). Both appear to be single collecting systems. Good corticomedullary differentiation with no focal abnormality. No hydronephrosis. The bladder has a normal appearance. /courtney us Brittany Alberto MD IMG US ORDERABLES Final Result documented in this encounter Visit Diagnoses Not on filedocumented in this encounter
--- OUTSIDE RECORDS SUMMARY | 2024-06-06 06:13 | XMS_ITS | Encounter Summary ---
Author Organization [facility] Address [address] [place] [address] Care Team Providers Care Cnc Laser Operator Name Role Phone Yovanny Wilson MD Unavailable Unavailable Unknown, Provider Primary Care Provider Unava ilable Reason for Visit * Reason Comments Follow-up Diarrhea Encounter Details Date Type Department Care Team (Late st Contact Info) Description 09/23/2020 13:40 EDT Telemedicine [facility] Gastroenterology - [facility] [address] [place] [address] Elysia Anaya, BEHAVIOR CLINICIAN [address] [facility], [address] [place] [address] Diarrhea, unspecified type (Primary Dx); Bloating; Abdominal pain, unspecified abdominal location; Non-intractable vomiting with nausea, unspecified vomiting type Social History Tobacco Use Types Packs/Day Years [...] Sign Reading Time Taken Comments Blood Pressure - - Pulse - - Temperature - - Respiratory Rate - - Oxygen Saturation - - Inhaled Oxygen Concentration - - Weight 49.7 kg (109 lb 8 oz) 09/23/2020 1347 EDT Height 149.9 cm (4' 11.02) 09/23/2020 1347 EDT Body Mass Index 22.1 09/23/2020 1347 EDT documented in this encounter Functional Status [...] documented in this encounter Progress Notes * Elysia Anaya, LARY - 09/23/2020 1340 EDT Gastroenterology & Hepatology Follow-up Visit Reason for Referral: Bloating PCP: Provider Unknown Telemedicine visit conducted today as precaution during COVID-19 outbreak. HPI: Lakisha Griffith is a 19 y.o. female with a past medical history of migraine (sumatriptan), GERD, syncope, h/o anorexia in high school, depression here today for consultation regarding bloating. Since her last visit, patient had labs that were unremarkable including infectious stool work-up and fecal calprotectin. H. pylori stool antigen was not completed. Reports that all of her medicationsfor her primary care were discontinued. A couple of months ago, started working out at the gym more regularly and trying to take care of her health more globally. Reports that working out help stimulate her appetite. Has been able to gain weight and is fluctuating between 109 and 111 pounds. Does continue to avoid certain foods that cause some abdominal pain and bloating. Continues to have some loose stools, but only 1 or 2 times a day in the morning only. Notes this is significantly improved since her cholecystectomy. Decrease THC use to a small amount once in the evening to help with sleep.Wonders if this improves some of her symptoms. Patient is also very introspective that she believesher symptoms, particularly vomiting, were related to stress and anxiety. Notes that since she has been working with her therapist and working out at the gym, she has been feeling much better and is vomiting much less frequently. No longer has blood in her emesis when she does vomit. Is interested in none medical management where possible and is establishing with a new primary care. Patient also feels as though nausea and vomiting is improved since discontinuing medications. ?? Therapy tried: Pepcid for GERD--20mg daily Zofran--works sometimes ?? IV compazine, zofran, benadryl in ER ?? Pertinent surgical history: S/p lap rudi 05/2020 (path: chronic cholecystitis) ?? Most recent colonoscopy: None Red Flags: --Unexplained weight loss: no --Hematochezia/melena: no --Worsening over time or abrupt onset: improving Labs and Imagin05/16/2018 CT A/P Small to mod volume of probably hemorrhagic fluid in dependent pelvis. Appendix normal in caliber. Small amount of fluid in RLQ, most likely from pelvis. No appendicitis likely. Consider f/u pelvic U/S. 06/2020 infectious stool workup negative, negative celiac panel (IgA WNL), calprotectin WNL ?? Liver panel mildly elevated 06/2020 Family History: No known history colorectal CA or IBD ?? Social History: Occupation: [employer], enjoys her work ETOH: occasionally Caffeine: 3-4 energy drinks/week Tobacco (smoking, vaping, chewing): vaping Supplements: probiotics with cranbur Marijuana: regular use, daily, 3 years. Stopped for 2.5 months with worsening symptoms ?? Stress and coping: yes, nausea PMH: As stated in HPI. ROS: A 10-point ROS was performed and is negative other than stated in HPI. Current Outpatient Medications: ??? omeprazole (PRILOSEC) 40 mg capsule, Take 1 Cap by mouth daily., Disp: 90 Cap, Rfl: 2 ??? ondansetron (ZOFRAN) 4 mg tablet, Take 8 mg by mouth every 8 hours as needed for Nausea., Disp:, Rfl: ??? SUMAtriptan (IMITREX) 5 mg/actuation nasal spray, Instill 5 mg into right nostril once as needed., Disp: , Rfl: Allergies Allergen Reactions ??? Sulfa (Sulfonamide Antibiotics) Objective: Last Vitals: See pain scale Physical exam: Alert, oriented. Speech fluid and clear. NAD. Conjunctive pink, sclera white. No jaundice. Impression: 19 y.o. female with a past medical history of migraine (sumatriptan), GERD, syncope, h/o anorexia in high school, depression here today for consultation regarding bloating. Overall patient feeling significantly improved with improving diet, exercise and mental health. No alarm features and work-up today unremarkable. She is very introspective about the role that stress and anxiety plays on her symptoms. Discussed gut-brain connection and the role that anxiety can haveon GI symptoms. Also discussed with patient that marijuana use and medications can worsen nausea and vomiting. Patient can continue to work with primary care and mental health provider, which will likely positively impact her GI symptoms. Plan: 1. Vomiting and loose stools: --Continue working on healthy lifestyle, decreasing anxiety --Try square breathing (provided with instructions) --Establish with new PCP and continue working with therapist --Follow-up DAVID Anaya APRN Gastroenterology & Hepatology This note was dictated using [employer] software for dictation, therefore please excuse any inadvertentdictation errors in this note. TELEMEDICINE VIDEO VISIT Today's visit was provided through telemedicine video conferencing: The location of the patient : Car The location of the provider: Office The following staff and their role did participate in today's encounter visit: Elysia Anaya APRN The concept of ???Telemedicine?? has been described to the patient.? Patient has been informed of the anticipated benefits and possible risks.? Patient understands the information provided regardingtelemedicine, has had the opportunity to ask questions about this information, and all questions have been answered to patient???s satisfaction. Patient consents for the use of telemedicine in his/her medical care and authorizes the transmission of any relevant medical information to providers and their staff involved in patient???s medical or mental health care. documented in this encounter Plan of Treatment Not on file documented as of this encounter Visit Diagnoses Diagnosis Diarrhea, unspecified type- Primary Bloating Flatulence, eructation, and gas pain Abdominal pain, unspecified abdominal location Non-intractable vomiting with nausea, unspecified vomiting type documented in this encounter Care Teams Cnc Laser Operator Relationship Specialty Start Date End Date Unknown, Provider, PCP - General 03/27/18 09/28/21 Yovanny Wilson MD 09/07/16 documented as of this encounter
--- OUTSIDE RECORDS SUMMARY | 2024-06-06 06:13 | XMS_ITS | Encounter Summary ---
Author Organization [facility] Address [address] [place] [address] Care Team Providers Care Media Executive Name Role Phone Yovanny Wilson MD Unavailable Unavailable Solange Desai PA-C Primary Care Provider [phone] Encounter Details Date Type Department Care Team (Latest Contact Info) Description 07/24/2022 Lab Requisition [facility] Pathology & Laboratory Medicine - [address] [id number] Encounter for gynecological examination (general) (routine) without abnormal findings Social History Tobacco Use Types Packs/Day Years [...] Date/Time Associated Diagnosis Comments PAP TEST Today 07/24/2022 16:25 EDT documented in this encounter Results * PAP TEST (07/24/2022 16:25 EDT) Specimens A. Cervix and/or Endocervix , ThinPrep Imaging System with Manual Evaluation 08/03/2022 12:[address] [facility] Specimen Adequacy Satisfactory for Evaluation - transformation zone component absent 08/03/2022 12:[address] [facility] General Categorization Negative for intraepithelial lesion or malignancy 08/03/2022 12:[address] [facility] Descriptive Diagnosis Reactive cellular changes associated with inflammation present (includes repair). 08/03/2022 12:[address] [facility] Attestation By the signature below, the attending physician certifies that they have personally conducted a gross and/or microscopic examination of the described specimens and rendered or confirmed the above diagnosis. 08/03/2022 12:38 [facility] at 1238 Clinical History SEE BELOW 08/04/19 12:[address] [facility] Performing Lab [facility] 08/03/2022 12:[address] [facility] Scanned Images 08/03/2022 12:[address] [facility] Papanicolaou smear specimen (specimen) CERVIX UTERI STRUCTURE / Unknown 07/24/2022 16:25 EDT 07/25/2022 13:25 EDT us [facility] ORDERABLES Fin al Result [facility] [address] [place] [address] documented in this encounter Visit Diagnoses Diagnosis Encounter for gynecological examination (general) (routine) without abnormal findings documented in this encounter Care Teams Media Executive Relationship Specialty Start Date End Date Solange Desai PA-C [address] [place] [address] PCP - General Family Medicine - Primary Care 09/29/21 Yovanny Wilson MD 09/07/16 documented as of this encounter
--- OUTSIDE RECORDS SUMMARY | 2024-06-06 06:13 | XMS_ITS | Encounter Summary ---
Author Organization [facility] Address [address] [place] [address] Care Team Providers Care Whipped Topping Mixer Name Role Phone Yovanny Wilson MD Primary Care Provider Unavail able Giuliana Berrios NP Primary Care Provider [phone] Yovanny Wilson MD Unavailable Unavailable Unknown, Provider Primary Care Provider Unava Solange Meyers PA-C Primary Care Provider + [phone] Encounter Details Date Type Department Care Team (Late st Contact Info) Description 06/04/2000 Before PRISM Converted Visit (Maple) [facility] - [address] [id number] Brittany Alberto MD [address] [place] [address] Social History Tobacco Use Types Packs/Day Years [...] Procedure Name Priority Date/Time Associated Diagnosis Comments NM RENAL STATIC ONLY Routine 06/04/2000 16:31 EST documented in this encounter Results * NM RENAL STATIC ONLY (06/04/2000 16:31 EST) Anatomical Region Laterality Modality Other 06/04/2000 16:3 1 EST Narrative 03/01/2009 19:46 EST h/o GRADE 3-4 [facility] REFLUX BILATERALLY r/o AREAS OF DECR. RENAL BLOOD FLOW RENAL DMSA SCAN: 06/04/00 1230 HOURS. HISTORY: Grade III-IV [facility] reflux bilaterally. Rule out decreased renal blood flow. TECHNIQUE: After the IV injection of 5 mCi Tc-99m DMSA, planar posterior and posterior oblique images of the kidneys are obtained. This is followed by SPECT imaging of the kidneys. FINDINGS: The kidneys are unremarkable. There is no evidence of renal scarring. Renal uptake in the left kidney = 53%. Renal uptake in the right kidney = 47%. /rad Procedure Note Yo Machado MD / Delta Gold MD - 03/01/2009 h/o GRADE 3-4 [facility] REFLUX BILATERALLY r/o AREAS OF DECR. RENAL BLOOD FLOW RENAL DMSA SCAN: 06/04/00 1230 HOURS. HISTORY: Grade III-IV [facility] reflux bilaterally. Rule out decreased renal blood flow. TECHNIQUE: After the IV injection of 5 mCi Tc-99m DMSA, planar posterior and posterior oblique images of the kidneys are obtained. This is followed by SPECT imaging of the kidneys. FINDINGS: The kidneys are unremarkable. There is no evidence of renal scarring. Renal uptake in the left kidney = 53%. Renal uptake in the right kidney = 47%. /rad Brittany Alberto MD [facility] ORDERABLES Final Result documented in this encounter Visit Diagnoses Not on filedocumented in this encounter Care Teams Whipped Topping Mixer Relationship Specialty Start Date End Date Yovanny Wilson MD PCP - General 02/27/15 09/06/16 Giuliana Berrios NP [address] [place] [phone] PCP - General 5/19/17 12/5/18 Unknown, Provider, [address] [place] [phone] PCP - General 03/27/18 09/28/21 Solange Desai, PARandyC [address] [place] [address] PCP - General Family Medicine - Primary Care 09/29/21 Yovanny Wilson MD 09/07/16 documented as of this encounter
--- OUTSIDE RECORDS SUMMARY | 2024-06-06 06:13 | XMS_ITS | Encounter Summary ---
Author Organization [facility] Address [address] [place] [address] Care Team Providers Care Edger Automatic Name Role Phone Yovanny Wilson MD Unavailable Unavailable Unknown, Provider MD Primary Care Provider Solange Chisholm PA-C Primary Care Provider [phone] Encounter Details Date Type Department Care Team (Late st Contact Info) Description 07/19/2020 Lab Requisition [facility] Pathology & Laboratory Medicine - [facility] [address] [place] [address] Outr Resulting Lab, Provider Social History Tobacco [...] Procedure Name Priority Date/Time Associated Diagnosis Comments GIARDIA AND CRYPTOSPORIDIUM ANTIGENS Routine 07/16/2020 13:09 EDT documented in this encounter Results * GIARDIA AND CRYPTOSPORIDIUM ANTIGENS (07/16/2020 13:09 EDT) Giardia and Cryptosporidium Cryptosporidium Antigen Neg and Giardia Antigen Neg Cryptosporidium Antigen Neg and Giardia Antigen Neg 14:15 EDT [facility] Feces SPECIMEN FROM RECTUM / Unknown 07/16/2020 13:09 EDT 07/19/2020 12:59 EDT us Provider Outr Resulting Lab MICROBIOLOGY - GENER AL ORDERABLES Final Result [facility] [address] [place] [address] documented in this encounter Visit Diagnoses Not on filedocumented in this encounter Care Teams Edger Automatic Relationship Specialty Start Date End Date Unknown, Brennon, PCP - General 03/27/18 09/28/21 Solange Desai, MODESTOC [address] [place] [address] PCP - General Family Medicine - Primary Care 09/29/21 Yovanny Wilson MD 09/07/16 documented as of this encounter
--- OUTSIDE RECORDS SUMMARY | 2024-06-06 06:13 | XMS_ITS | Encounter Summary ---
Author Organization [facility] Address [address] [place] [address] Care Team Providers Care Commercial Fisherman Name Role Phone Giuliana Berrios CONE TRUCKER Primary Care Provider [phone] Yovanny Wilson MD Unavailable Unavailable Encounter Details Date Type Department Care Team (Latest Contact Info) Description 10/17/2016 14:03 EDT - 10/17/2016 23:59 EDT Hospital Encounter [facility] [address] [place] [address] Dong Swain MD [address] [place] [phone] Discharge Disposition: Auto Discharge Social History Tobacco [...] documented in this encounter Discharge Diagnoses Diagnosis G43.909 Migraine, unspecified, not intractable, without status migrainosus-G43.909[ICD-10-CM] documented in this encounter Medications at Time of Discharge ondansetron (ZOFRAN) 4 mg tablet Take 8 mg by mouth every 8 hours as needed for Nausea. SUMAtriptan (IMITREX) 5 mg/actuation nasal spray Instill 5 mg into right nostril once as needed. documented as of this encounter Discharge Disposition Disposition Code Departure Means Destination Auto Discharge Home documented in this encounter Plan of Treatment Not on file documented as of this encounter Visit Diagnoses Not on filedocumented in this encounter Care Teams Commercial Fisherman Relationship Specialty Start Date End Date Giuliana Berrios NP [address] [place] [phone] PCP - General 09/07/16 03/26/18 Yovanny Wilson MD [address] [place] [phone] 09/07/16 documented as of this encounter
--- OUTSIDE RECORDS SUMMARY | 2024-06-06 06:13 | XMS_ITS | Encounter Summary ---
Author Organization [facility] Address [address] [place] [address] Care Team Providers Care Engagement Director Name Role Phone Unavailable Primary Care Provider Unavailabl e Encounter Details Date Type Department Care Team (Late st Contact Info) Description 08/02/2000 17:23 EDT Hospital Encounter [address] [address] Brittany Alberto MD [address] [place] [id number] Social History Tobacco Use Types Packs/Day Years [...] Associated Diagnosis Comments BACTERIAL CULTURE, URINE Routine 08/02/2000 17:00 EDT documented in this encounter Results * BACTERIAL CULTURE, URINE (08/02/2000 17:00 EDT) Specimen Description Urine [facility] Result 10,000 to 100,000 CFU/ml KLEBSIELLA OXYTOCA 10,000 to 100,000 CFU/ml ESCHERICHIA COLI [facility] Report Status Final [id number] [facility] 08/02/2000 17:0 0 EDT 08/02/2000 17:47 EDT Narrative Organism Antibiotic Method Susceptibility 10,000 to 100,000 cfu/ml escherichia coli Ampicillin SUSCEPTIBILITY (ROSITA) 2 Susceptible 10,000 to 100,000 cfu/ml escherichia coli Cefazolin SUSCEPTIBILITY (ROSITA) <=8 Susceptible 10,000 to 100,000 cfu/ml escherichia coli Gentamicin SUSCEPTIBILITY (ROSITA) <=0.5 Susceptible 10,000 to 100,000 cfu/ml escherichia coli Trimethoprim-Sulfameth oxazole SUSCEPTIBILITY (ROSITA) <=0.5 Susceptible 10,000 to 100,000 cfu/ml escherichia coli Nitrofurantoin SUSCEPTIBILITY (ROSITA) <=32 Susceptible 10,000 to 100,000 cfu/ml escherichia coli Tobramycin SUSCEPTIBILITY (ROSITA) <=0.5 Susceptible 10,000 to 100,000 cfu/ml escherichia coli Amikacin SUSCEPTIBILITY (ROSITA) <=2 Susceptible 10,000 to 100,000 cfu/ml escherichia coli Imipenem SUSCEPTIBILITY (ROSITA) <=4 Susceptible 10,000 to 100,000 cfu/ml escherichia coli Piperacillin SUSCEPTIBILITY (ROSITA) <=8 Susceptible 10,000 to 100,000 cfu/ml escherichia coli Ciprofloxacin SUSCEPTIBILITY (ROSITA) <=0.5 Susceptible 10,000 to 100,000 cfu/ml klebsiella oxytoca Ampicillin SUSCEPTIBILITY (ROSITA) >=32 Resistant 10,000 to 100,000 cfu/ml klebsiella oxytoca Cefazolin SUSCEPTIBILITY (ROSITA) <=8 Susceptible 10,000 to 100,000 cfu/ml klebsiella oxytoca Gentamicin SUSCEPTIBILITY (ROSITA) <=0.5 Susceptible 10,000 to 100,000 cfu/ml klebsiella oxytoca Trimethoprim-Sulfameth oxazole SUSCEPTIBILITY (ROSITA) <=.5/9.5 Susceptible 10,000 to 100,000 cfu/ml klebsiella oxytoca Nitrofurantoin SUSCEPTIBILITY (ROSITA) <=32 Susceptible 10,000 to 100,000 cfu/ml klebsiella oxytoca Tobramycin SUSCEPTIBILITY (ROSITA) <=0.5 Susceptible 10,000 to 100,000 cfu/ml klebsiella oxytoca Amikacin SUSCEPTIBILITY (ROSITA) <=2 Susceptible 10,000 to 100,000 cfu/ml klebsiella oxytoca Imipenem SUSCEPTIBILITY (ROSITA) <=4 Susceptible 10,000 to 100,000 cfu/ml klebsiella oxytoca Piperacillin SUSCEPTIBILITY (ROSITA) <=8 Susceptible 10,000 to 100,000 cfu/ml klebsiella oxytoca Ciprofloxacin SUSCEPTIBILITY (ROSITA) <=0.5 Susceptible us Brittany Alberto MD MICROBIOLOGY - GENERAL ORDERABL ES Final Result Performing Organization Address City/State/[facility] Co de Phone Number [facility] [address] [place] [phone] documented in this encounter Visit Diagnoses Not on filedocumented in this encounter
--- OUTSIDE RECORDS SUMMARY | 2024-06-06 06:13 | XMS_ITS | Encounter Summary ---
Author Organization [facility] Address [address] [place] [address] Care Team Providers Care Skiing Teacher Name Role Phone Unavailable Primary Care Provider Unavailabl e Encounter Details Date Type Department Care Team (Late st Contact Info) Description 02/16/2005 12:47 EDT Hospital Encounter [facility] [address] [place] [address] Jeff Hazel MD [address] [place] [address] Social History Tobacco Use Types Packs/Day Years [...]
--- OUTSIDE RECORDS SUMMARY | 2024-06-06 06:13 | XMS_ITS | Encounter Summary ---
Author Organization [facility] Address [address] [place] [address] Care Team Providers Care Air Launch Weapons Technician Name Role Phone Yovanny Wilson MD Unavailable Unavailable Unknown, Provider MD Primary Care Provider Solange Chisholm PA-C Primary Care Provider [phone] Encounter Details Date Type Department Care Team (Late st Contact Info) Description 05/19/2020 Lab Requisition [facility] Pathology & Laboratory Medicine - [facility] [address] [place] [address] Outr Resulting Lab, Provider Social History Tobacco [...] Procedure Name Priority Date/Time Associated Diagnosis Comments ZZCOVID-19 TEST [facility] PCR Today 05/19/2020 10:00 EST COVID-19 TESTING Routine 05/19/2020 10:0 0 EST documented in this encounter Results * COVID-19 TEST [facility] PCR (05/19/2020 10:00 EST) Swab ENTIRE NASOPHARYNX / Unknown 05/19/2020 10:00 EST 05/19/2020 21:41 EST us Provider Outr Resulting Lab MICROBIOLOGY - GENER AL ORDERABLES Final Result [facility] [address] [place] [address] * COVID-19 TESTING (05/19/2020 10:00 EST) COVID-19 rt-PCR Result Negative Negative 05/20/2020 19:49 EST [facility] Comment: This test has not been FDA cleared or approved. This test has been authorized by FDA under an EUA for use by authorized laboratories. This test has been authorized only for detection of nucleic acid from 2019-nCoV, not for any other viruses or pathogens. This test is only authorized for the duration of the declaration that circumstances exist justifying the authorization of emergency use of in vitro diagnostic tests for detection and/or diagnosis of 2019-nCoV under section 564(b)(1) of Act, 21 U.S.C ?? 360bbb-3(b) (1), unless the authorization is terminated or revoked sooner. Negative results do not preclude 2019-nCoV infection and should not be used as the sole basis for treatment or other patient management decisions. Negative results must be combined with clinical observations, patient history, and epidemiological information. This test was developed and its performance characteristics determined by [facility]. It has not been cleared or approved by the US Food and Drug Administration. FDA does not require this test to go through premarket FDA review. This test is used for clinical purposes. It should not be regarded as investigational or for research. This laboratory is certified under the Clinical Laboratory Improvement Amendments (CLIA) as qualified to perform high complexity clinical laboratory testing. This test is based on the CDC COVID-19 Emergency Use Authorization (EUA) assay, with minor modification as defined by the FDA Performed on the [employer] 7 Flex RT-PCR System. Performing Lab [facility] 05/20/2020 19:49 EST [facility] Swab 05/19/2020 10:0 0 EST 05/19/2020 21:41 EST us Provider Outr Resulting Lab MICROBIOLOGY - GENER AL ORDERABLES Final Result [facility] [address] [place] [address] documented in this encounter Visit Diagnoses Not on filedocumented in this encounter Care Teams Air Launch Weapons Technician Relationship Specialty Start Date End Date Unknown, Provider, PCP - General 03/27/18 09/28/21 Solange Desai PARandyC [address] [place] [id number] PCP - General Family Medicine - Primary Care 09/29/21 Yovanny Wilson MD 09/07/16 documented as of this encounter
--- OUTSIDE RECORDS SUMMARY | 2024-06-06 06:13 | XMS_ITS | Encounter Summary ---
Author Organization [facility] Address [address] [place] [address] Care Team Providers Care Application Consultant Name Role Phone Yovanny Wilson MD Unavailable Unavailable Unknown, Provider Primary Care Provider Unava ilable Reason for Visit * Reason Onset Date Comments Results 07/25/2020 Encounter Details Date Type Department Care Team ([facility] Contact Info) Description 07/25/2020 Telephone [facility] Gastroenterology - [facility] [address], [place] [address] Elysia Anaya, LIEUTENANT FIRE FIGHTER [address] [facility], [address] [place] [address] Results Social History Tobacco Use Types Packs/Day [...] encounter Miscellaneous Notes * Telephone Encounter - Meghan Heard RN - 08/10/2020 0915 EDT No H pylori testing done per [facility]. * Telephone Encounter - Meghan Heard RN - 07/28/2020 1000 EDT Advised patient that H pylori testing still needs to be completed. Lab order routed to [facility]. Patient confirms she has not started PPI, insurance has changed recently and she was informed by the pharmacy that she would need to pay full romeo. * Telephone Encounter - Ashish Lane - 07/25/2020 1344 EDT Patient called as follow-up from appt with Elysia and results from labs 07/16/20 Patient believes she may have just missed a call. documented in this encounter Plan of Treatment Not on file documented as of this encounter Visit Diagnoses Diagnosis Diarrhea, unspecified type- Primary Non-intractable vomiting with nausea, unspecified vomiting type Bloating Flatulence, eructation, and gas pain Abdominal pain, unspecified abdominal location documented in this encounter Care Teams Application Consultant Relationship Specialty Start Date End Date Unknown, Provider, PCP - General 03/27/18 09/28/21 Yovanny Wilson MD 09/07/16 documented as of this encounter
--- OUTSIDE RECORDS SUMMARY | 2024-06-06 06:13 | XMS_ITS | Encounter Summary ---
Author Organization [facility] Address [address] [place] [address] Care Team Providers Care Display And Banner Designer Name Role Phone Yovanny Wilson MD Unavailable Unavailable Unknown, Provider MD Primary Care Provider Solange Chisholm PA-C Primary Care Provider [phone] Encounter Details Date Type Department Care Team (Late st Contact Info) Description 07/13/2020 Lab Requisition [facility] Pathology & Laboratory Medicine - [facility] [address] [place] [address] Outr Resulting Lab, Provider Social History Tobacco [...] Procedure Name Priority Date/Time Associated Diagnosis Comments IGA Routine 07/13/2020 11:49 EDT documented in this encounter Results * IGA (07/13/2020 11:49 EDT) IgA 123 85 - 499 mg/dL 07/14/2020 8:32 EDT [facility] Blood VENOUS BLOOD / Unknown 07/13/2020 11:49 EDT 07/13/2020 20:49 EDT us Provider Outr Resulting Lab CHEMISTRY & BLOOD GA S ORDERABLES Final Result Performing Organization Address City/State/[facility] Co de Phone Number [facility] [address] [place] [address] documented in this encounter Visit Diagnoses Not on filedocumented in this encounter Care Teams Display And Banner Designer Relationship Specialty Start Date End Date Unknown, Brennon, PCP - General 03/27/18 09/28/21 Solange Desai, PARandyC [address] [place] [address] PCP - General Family Medicine - Primary Care 09/29/21 Yovanny Wilson MD 09/07/16 documented as of this encounter
--- OUTSIDE RECORDS SUMMARY | 2024-06-06 06:13 | XMS_ITS | Encounter Summary ---
Author Organization [facility] Address [address] [place] [address] Care Team Providers Care Commercial Carpenter Name Role Phone Yovanny Wilson MD Unavailable Unavailable Unknown, Provider Primary Care Provider Unava ilable Reason for Visit * Reason Comments New Patient Visit bloating * Consult (Routine) - Receiving Office to Obtain Authorization Specialty Diagnoses / Procedures Referred By Contact Referred To Contact Gastroenterology and Hepatology Diagnoses Abdominal pain Sania Mahoney PA [address] [place] [address] [place] [address] Phone: tel:[phone] fax:[phone] [facility] Gastroenterology [address] [address] Phone: tel: fax: Referral ID Status Reason Start Date Expiration Date Visits Requested Visits Authorized [id number] Receiving Office to Obtain Authorization 1 1 Encounter Details Date Type Department Care Team (Late st Contact Info) Description 07/07/2020 15:00 EDT Telemedicine [facility] Gastroenterology [address] [id number] Elysia Anaya NP [address] [facility], [address] [place] [id number] Diarrhea, unspecified type (Primary Dx); Non-intractable vomiting with nausea, unspecified vomiting type; Bloating; Abdominal pain, unspecified abdominal location Social History Tobacco Use Types Packs/Day Years [...] - Inhaled Oxygen Concentration - - Weight 47.6 kg (105 lb) 07/07/2020 1450 EDT Height 149.9 cm (4' 11) 07/07/2020 1450 EDT Body Mass Index 21.21 07/07/2020 1450 EDT documented in this encounter Functional Status [...] 09/11/2016 13:47 EDT documented in this encounter Ordered Prescriptions Prescription Sig Dispense Quantity Refills Last Filled Start Date End Date omeprazole (PRILOSEC) 40 mg capsuleIndications: Diarrhea, unspecified type,Non-intractabl e vomiting with nausea, unspecified vomiting type Take 1 Cap by mouth daily. 90 Cap 2 07/07/2020 documented in this encounter Progress Notes * Elysia Anaya, LARY - 07/07/2020 1500 EDT Gastroenterology & Hepatology Initial Visit Reason for Referral: Bloating PCP: Provider Unknown Telemedicine visit conducted today as precaution during COVID-19 outbreak. HPI: Lakisha Griffith is a 19 y.o. female with a past medical history of migraine (sumatriptan), GERD, syncope, h/o anorexia in high school, depression here today for consultation regarding bloating. 8 months ago was worse, but had lap rudi 1-2 months ago, now somewhat improved. Was 12-16 hours ofvomiting daily, couldn't eat, would vomit 15 minutes after eating. Lost 50+ lbs over 7 months. Prior to surgery, cut out gluten, dairy without improvement. Back in diet now. Nearly every morning, vomits for 1-1.5 hours. Vomiting up stomach acid, not food. Nausea sometimes throughout the day--knows anxiety playing a role, but vomiting is new. Was having bright red blood in emesis about 3x/week, but this resolved after surgery and vomiting decreased in frequency. Trying to increase PO intake. Taking daily weight and is fluctuating reportedly between 102 and 106lb. Has had diarrhea after surgery, but same as prior to surgery. Occurs any time she eats or drinks anything besides water. No red or black stools. Some abdominal cramping that improves a little while after passing stool. Occurs most days. Heating pad helps. Has a lot of bloating after eating. Has heartburn that is poorly controlled by famotidine and Tums. No dysphagia. Notes that she has an exteremly varied sleep scheduled related to her work. Sometimes works 25 hourshifts or 1st and 3rd shift. Acknowledges this may play a role in her symptoms. Therapy tried: Pepcid for GERD--20mg daily Zofran--works sometimes IV compazine, zofran, benadryl in ER Pertinent surgical history: S/p lap rudi 05/2020 (path: chronic cholecystitis) Most recent colonoscopy: none Red Flags: --Unexplained weight loss: now stabilized, but difficulty regaining --Dysphagia: no --Hematochezia/melena: none --Nocturnal symptoms: once a week wakes up to have BM Labs and Imagin05/16/2018 CT A/P Small to mod volume of probably hemorrhagic fluid in dependent pelvis. Appendix normal in caliber. Small amount of fluid in RLQ, most likely from pelvis. No appendicitis likely. Consider f/u pelvic U/S. PMH: As stated in HPI. ROS: A 10-point ROS was performed and is negative other than stated in HPI. Current Outpatient Medications: ??? ondansetron (ZOFRAN) 4 mg tablet, Take 8 mg by mouth every 8 hours as needed for Nausea., Disp:, Rfl: ??? SUMAtriptan (IMITREX) 5 mg/actuation nasal spray, Instill 5 mg into right nostril once as needed., Disp: , Rfl: Allergies Allergen Reactions ??? 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 Stopped for 2.5 months with worsening symptoms Stress and coping: yes, nausea Objective: Last Vitals: See pain scale Physical exam: Alert, oriented. Speech fluid and clear. NAD. Conjunctive pink, sclera white. No jaundice. Impression: 19 y.o. female with a past medical history of migraine (sumatriptan), GERD, syncope, h/o anorexia in high school, depression here today for consultation regarding bloating. GERD or PUD possibility. Will also see how patient does as she continues to recover from her surgery. Unlikely cannabinoid hyperemesis syndrome as she actually worsened after stopping THC for 2.5 months. Cyclic vomiting syndrome still a differential. Will check labs for H pylori, celiac disease. Will start PPI in place of H2RA to see if any improvement in symptoms. Patient introspective about role stress, anxiety and dysregulated sleep schedule likely playing a role in her symptoms. Will check non invasive markers for IBD. Bile acid diarrhea unlikely as diarrhea unchanged from prior to lap rudi. Unlikely infectious etiology, although in the future may consider c diff considering she works in longterm setting. Most likely IBS, but unfortunately this will be somewhat of a diagnosis of exclusion. Does otherwise meet the DARREN IV criteria for IBS-D. Plan: 1. Nausea and vomiting: --Continue to work on anxiety --Start omeprazole 40mg PO daily. Stop famotidine. --H pylori stool antigen ordered (start PPI after submitting smaple) --Start boost, ensure shakes 2. Abdominal pain and diarrhea: --Celiac panel, calpro, crp, cbc, liver panel ordered, faxed to [facility] --Follow-up 6-8 weeks Elysia Anaya APRN Gastroenterology & Hepatology TELEMEDICINE VIDEO VISIT Today's visit was provided through telemedicine video conferencing: The location of the patient : Home The location of the provider: Office The [...] location documented in this encounter Care Teams Commercial Carpenter Relationship Specialty Start Date End Date Unknown, Provider, PCP - General 03/27/18 09/28/21 Yovanny Wilson MD 09/07/16 documented as of this encounter
--- OUTSIDE RECORDS SUMMARY | 2024-06-06 06:13 | XMS_ITS | Encounter Summary ---
Author Organization [facility] Address [address] [place] [address] Care Team Providers Care Judge Name Role Phone Yovanny Wilson MD Unavailable Unavailable Unknown, Provider MD Primary Care Provider UnaSolange Main PA-C Primary Care Provider [phone] Encounter Details Date Type Department Care Team (Late st Contact Info) Description 02/10/2020 Lab Requisition [facility] Pathology & Laboratory Medicine - [facility] [address] [place] [address] Outr Resulting Lab, Provider Social History Tobacco [...] Procedure Name Priority Date/Time Associated Diagnosis Comments DO NOT ORDER STANDALONE - BROAD COVID TEST Today 02/10/2020 10:55 EDT COVID-19 TESTING Routine 02/10/2020 10:5 5 EDT documented in this encounter Results * DO NOT ORDER STANDALONE - BROAD COVID TEST (02/10/2020 10:55 EDT) COVID-19 rt-PCR Result NEGATIVE Negative 02/11/2020 22:10 EDT [facility] Comment: 2019-novel Coronavirus (2019-nCoV) not detected by the qRT-PCR assay. Consider testing for other respiratory viruses or re-collecting for 2019-nCoV testing. Note: Optimum timing for peak viral levels during infections caused by 2019-nCoV have not been determined. Collection of multiple specimens from the same patient may be necessary to detect the virus. Limitations Positive results are indicative of active infection with SARS-CoV-2 but do not rule out bacterial infection or co-infection with other viruses. The agent detected may not be the definite cause of disease. In addition, detection of viral RNA may not indicate the presence of infectious virus or that SARS-CoV-2 is the causative agent for clinical symptoms. Negative results do not preclude SARS-CoV-2 infection and should not be used as the sole basis for patient management decisions. Negative results must be combined with clinical observations, patient history, and epidemiological information. False negative results may also occur if amplification inhibitors are present in the specimen or if inadequate numbers of organisms are present in the specimen. Optimum specimen types and timing for peak viral levels during infections caused by SARS-CoV-2 have not been fully determined. Collection of multiple specimens (types and time points) from the same patient may be necessary to detect the virus. The test was validated for use with upper respiratory specimens obtained via nasopharyngeal or oropharyngeal swabs in VTM, UTM, M4, M5, M6, saline, and MTM media. The performance of this test has not been established for other specimens. Specimens collected using other FDA recommended Specimen Collection Materials listed in the FDA COVID-19 [employer] communication (July 16, 2019) are processed with the caveat that they were not all validated for use with this test and the result must be interpreted in this context. Furthermore, a false negative results may occur if a specimen is improperly collected, transported or handled. If the virus mutates in the RT-PCR target region, SARS-CoV-2 may not be detected or may be detected less predictably. Inhibitors or other types of interference may produce a false negative result. An interference study evaluating the effect of common cold medications was not performed. This test is not FDA-cleared but its performance characteristics were established by our CLIA-certified, CAP-accredited, high complexity laboratory in accordance with CLIA regulations, [employer] (CAP) guidelines (Jul 09, 2019), and FDA guidance (Jun 20, 2019). This test is only for use under the Food and Drug Administration's Emergency Use Authorization. Swab ENTIRE NASOPHARYNX / Unknown 02/10/2020 10:55 EDT 02/10/2020 23:38 EDT us Provider Outr Resulting Lab MICROBIOLOGY - GENER AL ORDERABLES Final Result [facility] [place] [place] * COVID-19 TESTING (02/10/2020 10:55 EDT) COVID-19 rt-PCR Result NEGATIVE Negative 02/11/2020 23:38 EDT [facility] Comment: 2019-novel Coronavirus (2019-nCoV) not detected by the qRT-PCR assay. Consider testing for other respiratory viruses or re-collecting for 2019-nCoV testing. Note: Optimum timing for peak viral levels during infections caused by 2019-nCoV have not been determined. Collection of multiple specimens from the same patient may be necessary to detect the virus. Limitations Positive results are indicative of active infection with SARS-CoV-2 but do not rule out bacterial infection or co-infection with other viruses. The agent detected may not be the definite cause of disease. In addition, detection of viral RNA may not indicate the presence of infectious virus or that SARS-CoV-2 is the causative agent for clinical symptoms. Negative results do not preclude SARS-CoV-2 infection and should not be used as the sole basis for patient management decisions. Negative results must be combined with clinical observations, patient history, and epidemiological information. False negative results may also occur if amplification inhibitors are present in the specimen or if inadequate numbers of organisms are present in the specimen. Optimum specimen types and timing for peak viral levels during infections caused by SARS-CoV-2 have not been fully determined. Collection of multiple specimens (types and time points) from the same patient may be necessary to detect the virus. The test was validated for use with upper respiratory specimens obtained via nasopharyngeal or oropharyngeal swabs in VTM, UTM, M4, M5, M6, saline, and MTM media. The performance of this test has not been established for other specimens. Specimens collected using other FDA recommended Specimen Collection Materials listed in the FDA COVID-19 [employer] communication (July 16, 2019) are processed with the caveat that they were not all validated for use with this test and the result must be interpreted in this context. Furthermore, a false negative results may occur if a specimen is improperly collected, transported or handled. If the virus mutates in the RT-PCR target region, SARS-CoV-2 may not be detected or may be detected less predictably. Inhibitors or other types of interference may produce a false negative result. An interference study evaluating the effect of common cold medications was not performed. This test is not FDA-cleared but its performance characteristics were established by our CLIA-certified, CAP-accredited, high complexity laboratory in accordance with CLIA regulations, [employer] (CAP) guidelines (Jul 09, 2019), and FDA guidance (Jun 20, 2019). This test is only for use under the Food and Drug Administration's Emergency Use Authorization. Performing Lab [facility] 02/11/2020 23:38 EDT [facility] Swab 02/10/2020 10:5 5 EDT 02/10/2020 23:38 EDT us Provider Outr Resulting Lab MICROBIOLOGY - GENER AL ORDERABLES Final Result [facility] [address] [place] [address] [facility] [place], [place] documented in this encounter Visit Diagnoses Not on filedocumented in this encounter Care Teams Judge Relationship Specialty Start Date End Date Unknown, Provider, PCP - General 03/27/18 09/28/21 Solange Desai PA-C [address] [place] [address] PCP - General Family Medicine - Primary Care 09/29/21 Yovanny Wilson MD 09/07/16 documented as of this encounter
--- OUTSIDE RECORDS SUMMARY | 2024-06-06 06:13 | XMS_ITS | Encounter Summary ---
Author Organization [facility] Address [address] [place] [address] Care Team Providers Care Pigment Pumper Name Role Phone Unavailable Primary Care Provider Unavailabl e Encounter Details Date Type Department Care Team (Late st Contact Info) Description 03/06/2002 9:25 EST - 03/06/2002 11:59 EST Hospital Encounter [facility] [address] [place] [address] Brittany Alberto MD [address] [place] [id number] Discharge Disposition: Auto Discharge Social History Tobacco [...] Associated Diagnosis Comments BACTERIAL CULTURE, URINE Routine 002 13:37 EST FL VOIDING CYSTOURETHROGRAM Routine 03/06/2002 12:40 EST RAD US RETROPERITONEAL COMPLETE Routine 03/06/2002 11:00 EST documented in this encounter Results * BACTERIAL CULTURE, URINE (03/06/2002 13:37 EST) Specimen Description Urine [facility] Result No growth [facility] Report Status Final [id number] [facility] 03/06/2002 13:3 7 EST 03/06/2002 13:37 EST Brittany Alberto MD MICROBIOLOGY - GENERAL ORDERABL ES Final Result Performing Organization Address City/State/[facility] Co de Phone Number [facility] [address] [place] [address] * FL VOIDING CYSTOURETHROGRAM (03/06/2002 12:40 EST) Anatomical Region Laterality Modality Other 03/06/2002 12:4 0 EST Impressions 01/17/2009 4:00 EDT IMPRESSION: 1. Bilateral Grade 3 vesicoureteric reflux. 2. Good drainage of refluxed material. 3. Near complete bladder emptying. FINDINGS: Administrative Assistant Coordinator film of the abdomen is unremarkable. After sterile insertion of an 8-[place] feeding tube into the urinary bladder, 275cc of contrast was gravity-instilled into the bladder. Predicted capacity for a child of this age is 120cc. With low bladder filling, vesicoureteric reflux was seen initially on the left, followed by reflux on the right. Contrast opacified bilateral single collecting systems with moderate distention of the calices. The site of insertion of the right and left ureter appeared normal. There was nearly complete emptying of the bladder post void and good drainage of the reflux material. When compared to the prior examination of 02/25/01, the degree of reflux has not changed significantly. /jv Narrative 01/17/2009 4:00 EDT RENAL U/S, FL VCUG- H/O REFLUX AND UTI'S R/O REFLUX, SCARRING, CHECK K IDNEY SIZE AND GROWTH VCUG 03/06/02 COMPARISON: 02/25/01 Procedure Note Elise Santoyo MD - 01/17/2009 RENAL U/S, FL VCUG- H/O REFLUX AND UTI'S R/O REFLUX, SCARRING, CHECK K IDNEY SIZE AND GROWTH VCUG 03/06/02 COMPARISON: 02/25/01 IMPRESSION IMPRESSION: 1. Bilateral Grade 3 vesicoureteric reflux. 2. Good drainage of refluxed material. 3. Near complete bladder emptying. FINDINGS: Administrative Assistant Coordinator film of the abdomen is unremarkable. After sterile insertion of an 8-[place] feeding tube into the urinary bladder, 275cc of contrast was gravity-instilled into the bladder. Predicted capacity for a child of this age is 120cc. With low bladder filling, vesicoureteric reflux was seen initially on the left, followed by reflux on the right. Contrast opacified bilateral single collecting systems with moderate distention of the calices. The site of insertion of the right and left ureter appeared normal. There was nearly complete emptying of the bladder post void and good drainage of the reflux material. When compared to the prior examination of 02/25/01, the degree of reflux has not changed significantly. /kishor us Brittany Alberto MD IMG FLUOROSCOPY ORDERABLES Farzana l Result * RAD US RETROPERITONEAL COMPLETE (03/06/2002 11:00 EST) Anatomical Region Laterality Modality Other 03/06/2002 11:0 0 EST Narrative 01/17/2009 4:00 EDT RENAL U/S, FL VCUG- H/O REFLUX AND UTI'S R/O REFLUX, SCARRING, CHECK K IDNEY SIZE AND GROWTH RENAL ULTRASOUND: 03/06/2002. FINDINGS: The right kidney measures 6.1 cm (45th percentile) and the left kidney measures 6.4 cm (50th percentile). There is elsu-xw-iaacrwwd pelvicaliectasis in the right kidney, which appears to be a single collecting system with good cortical medullary differentiation. There is also cwjh-xk-iegohhyh pelvicaliectasis of the left kidney, which is otherwise unremarkable with good cortical medullary differentiation. The bladder is markedly distended. It has a normal appearance. Postvoid, a jlfph-gw-tqtkoywd amount of urine remains within the bladder. Dilated distal ureters are seen at the level of the bladder. SMA-SMV relationships are normal. When compared to the prior examination of September 19, 2001, the degree of collecting system dilatation of both the right and the left kidney appear more prominent today, although it should be noted that postvoid the degree of collecting system dilatation did decrease. The patient is known to have bilateral vesicoureteric reflux, which could explain the presence of increased collecting system dilatation with a distended bladder. IMPRESSIONS: 1. Bilateral qpxo-np-ajezbbuc pelvicaliectasis, increased from prior examination, definitely related to degree of bladder distention with improvement postvoid. 2. There has been no demonstrable growth in either the right or left kidney since the prior examination. /tns Procedure Note Elise Santoyo MD - 01/17/2009 RENAL U/S, FL VCUG- H/O REFLUX AND UTI'S R/O REFLUX, SCARRING, CHECK K IDNEY SIZE AND GROWTH RENAL ULTRASOUND: 03/06/2002. FINDINGS: The right kidney measures 6.1 cm (45th percentile) and the left kidney measures 6.4 cm (50th percentile). There is tlln-br-fbrdneml pelvicaliectasis in the right kidney, which appears to be a single collecting system with good cortical medullary differentiation. There is also kswe-bk-ppxqpatr pelvicaliectasis of the left kidney, which is otherwise unremarkable with good cortical medullary differentiation. The bladder is markedly distended. It has a normal appearance. Postvoid, a itmll-nx-okqnckrq amount of urine remains within the bladder. Dilated distal ureters are seen at the level of the bladder. SMA-SMV relationships are normal. When compared to the prior examination of September 19, 2001, the degree of collecting system dilatation of both the right and the left kidney appear more prominent today, although it should be noted that postvoid the degree of collecting system dilatation did decrease. The patient is known to have bilateral vesicoureteric reflux, which could explain the presence of increased collecting system dilatation with a distended bladder. IMPRESSIONS: 1. Bilateral bkru-zw-sstskidq pelvicaliectasis, increased from prior examination, definitely related to degree of bladder distention with improvement postvoid. 2. There has been no demonstrable growth in either the right or left kidney since the prior examination. /tns us Brittany Alberto MD G US ORDERABLES Final Result documented in this encounter Visit Diagnoses Not on filedocumented in this encounter
[2024-06-06 06:14] VITALS: BP 149/75; PULSE 97; RESP 18; TEMP 37.8; O2SAT 97
[2024-06-06 06:18] VITALS: BP 149/75; PULSE 97; RESP 18; TEMP 37.8; O2SAT 97
--- NOTE | 2024-06-06 06:27 | ED.GENADUL_ITS ---
Discharge Plan Discharge Details Chief Complaint: FlankPain Clinical Impression: Left flank pain, Second trimester Primary Care Provider: Sania Mahoney ED Provider: Ashish Briseno [place] Meds and New Rx's Prescriptions: No Action lorazepam [Ativan] 0.5 mg tablet 0.5 mg PO BID PRN lisdexamfetamine [Vyvanse] 40 mg capsule 120 mg PO DIRECTED eszopiclone [Lunesta] 1 mg tablet 1 mg PO ONCE ondansetron 4 mg tablet,disintegrating 4 mg PO Q6H PRN (Reason: nausea and vomiting) Qty: 14 0RF HPI General Mode of arrival: ambulatory . Date/Time Provider Initiated Documentation: 06/06/24 06:27 . Limitations to Documentation: no limitations . Information obtained by: patient and RN notes reviewed . HPI Narrative: Patient presents to ED with a few days worth of left-sided back pain that became worse overnight. Patient is 15 weeks . She had URI type symptoms and tested positive for COVID 10 days ago. Those symptoms have more or less resolved except for mild residual cough. She has had some back discomfort mostly left-sided over the last few days. It has been steadily worsening and there have been twinges of sharp pain now and then. She continues to have nausea and vomiting which she has had throughout the . Denies any real abdominal pain. There has been no vaginal bleeding. This morning had significant dysuria. Has also developed a fever overnight. Related Data Home Medications ?Medication ?Instructions ?Recorded ?Confirmed lisdexamfetamine 40 mg capsule 120 mg PO DIRECTED 12/04/23 06/06/24 (Vyvanse) lorazepam 0.5 mg tablet (Ativan) 0.5 mg PO BID PRN 12/04/23 06/06/24 eszopiclone 1 mg tablet (Lunesta) 1 mg PO ONCE 12/10/23 06/06/24 ondansetron 4 mg disintegrating 4 mg PO Q6H PRN nausea and 12/10/23 06/06/24 tablet vomiting #14 tabs Previous Rx's ?Medication ?Instructions ?Recorded ondansetron 4 mg disintegrating 4 mg PO Q6H PRN nausea and 12/10/23 tablet vomiting #14 tabs Allergies Allergy/AdvReac Type Severity Reaction Status Date / Time Sulfa (Sulfonamide Allergy Skin Rash Verified 06/06/24 06:21 Antibiotics) tramadol Allergy Nausea Verified 06/06/24 06:21 General Stated Complaint: FlankPain DOMINIQUE: 3 Review of Systems Narrative: Per HPI Exam Narrative Exam Narrative: Const: WDWN female in NAD. VS per triage. HEENT: NC/AT. Normal facial exam. Neck: Supple. Trachea midline. Lungs: Normal respiratory effort. Lungs are clear. Cor: RRR without murmur. Good radial pulses. GI: Soft/ND/NT. Back: L CVAT, Neuro: A+O x 3. Normal speech, mentation, gait. Cranial nerves II - XII grossly intact. No gross motor or sensory deficit. Ext: No C/C/E. Course Vital Signs Vital signs: Vital Signs Temperature 100.1 F H 06/06/24 06:14 Pulse 97 H 06/06/24 06:14 Respiratory Rate 18 06/06/24 06:14 Blood Pressure 149/75 H 06/06/24 06:14 Pulse Oximetry 97 06/06/24 06:14 Temperature 100.1 F H 06/06/24 06:18 Pulse 97 H 06/06/24 06:18 Respiratory Rate 18 06/06/24 06:18 Blood Pressure 149/75 H 06/06/24 06:18 Blood Pressure Position Sitting 06/06/24 06:18 Pulse Oximetry 97 06/06/24 06:18 Pain Level 8 06/06/24 06:18 Medical Decision Making Young adult female who is 15 weeks presenting with left back and flank pain. Has developed a fever and dysuria overnight. heart rate noted to be in the 160s by nursing. Abdominal exam is benign. She does have left CVAT. IV established and fluids started. Urinalysis as well as CBC and BMP sent. Given patient's fever and symptoms she is started on IV ceftriaxone and given IV acetaminophen for her fever and pain. Renal ultrasound ordered given the significant left-sided CVAT on exam. 07:00 - Patient's urine with blood and RBCs only. It is nitrite and leukocyte esterase negative with no white cells on micro. This would suggest possibility of obstructing kidney stone. Her white count is normal. Kidney function is normal. Potassium a little low at 3.3. Will sign out to Dr. Mei pending renal ultrasound to evaluate for hydronephrosis and possible obstruction. Lab Data Lab results reviewed: Yes I reviewed the patient's lab results. Lab results narrative: See MDM PFSH All Active Problems (Updated 06/06/24 @ 07:09 by Ashish Briseno MD) Second trimester (Acute) Left flank pain (Acute) Medical History Eating disorder Depressive disorder Migraine Generalized anxiety disorder with panic attacks GERD (gastroesophageal reflux disease) Bipolar disorder Surgical History History of wisdom tooth extraction History of cholecystectomy Family History (Updated 12/04/23 @ 14:14 by Karrie Sagastume) Mother Depression History of heart valve repair Migraine Father Depression Sister Migraine Social History Smoking/Tobacco Use Status: Never Smoking risk assessment performed?: Yes Alcohol Intake: current Alcohol Intake frequency: a few times a month Drug use: Daily Substance use type: marijuana Details: 2-4 hits a day when nauseous 06/06/24 Do you feel safe at home: Yes Do you feel safe in your relationship?: Yes
--- NOTE | 2024-06-06 06:30 | DI.US_ITS ---
Exam(s) US RENAL EXAM: US RENAL CLINICAL HISTORY: left flank pain; 15 weeks TECHNIQUE: Ultrasound of both kidneys performed using standard protocol. COMPARISON: CT CT ABDOMEN PELVIS W from 12/10/2023 FINDINGS: RIGHT KIDNEY: Measures 10.5 cm in length. No cysts evident. Normal cortical thickness and corticomedullary differen tiation .No solid masses Mild hydronephrosis. No calculi. LEFT KIDNEY: Measures 9.5 cm in length. No cysts evident. Normal cortical thickness and corticomedullary differen tiaion. No solids masses. No intrarenal calculi nor hydonephrosis. URINARY BLADDER: Prevoid volume is 425 cc Postvoid volume is 2 cc No evidence of bladder mass nor diverticuli. Ureterovesical jets: Both identified and appear symmetrical. Left was stronger than right, commensur ate with right-sided hydronephrosis/hydroureter. FETUS: there is a viable intrauterine gestation cardiac activity identified 161 bpm IMPRESSION: 1. Mild right-sided hydronephrosis-hydroureter. No obvious calculi. Left kidney unremarkable. 2. Viable intrauterine gestation with cardiac activity identified at 161 BPM DATA REPOSITORY:
[2024-06-06 06:46] LABS: Bilirubin Negative (Negative); Blood Small (Negative); Clarity Clear (Clear); Glucose Negative (Negative); Ketones Negative (Negative); Leukocyte Esterase Negative (Negative); Nitrite Negative (Negative); Specific Gravity >= 1.030 (1.005-1.025); Urobilinogen 0.2 mg/dL (Up to 0.2)
[2024-06-06] MEDS: ACETAMINOPHEN 1,000 MG/100 ML BAG 400 MG IVPB (06:50)
[2024-06-06] MEDS: Normal Saline 1,000 ML 1000 ML IV (06:50)
[2024-06-06] MEDS: cefTRIAXone 1 GM/50 ML BAG IVPB (06:51)
[2024-06-06 06:53] LABS: Abs Immature Grans 0.04 10^3/uL (0.0-0.06); Absolute Basophil Count 0.02 10^3/uL (0.0-0.2); Absolute Monocyte Count 0.32 10^3/uL (0.1-0.8); Absolute Neutrophil Count 5.03 10^3/uL (1.2-6.7); Basophils % 0.4 %; HCT 36.8 % (36.0-46.0); HGB 12.5 g/dL (11.2-15.7); Immature Grans % 0.7 %; Lymphocytes % 5.3 %; MCH 30.5 pg (27.0-33.0); MCV 90 fL (80-95); MPV 9.2 fL (8.0-11.0); Monocytes % 5.6 %; Platelet Count 176 10^3/uL (130-400); RDW 13.2 % (11.7-14.6); RDW-SD 43.8 fL; WBC 5.71 10^3/uL (4.4-10.8)
[2024-06-06 06:56] LABS: Bacteria Rare HPF (Negative); C & S Indicated? No; Casts Negative LPF (Negative); Crystals Negative HPF (Negative); Epithelial Cells Negative HPF (Negative); Mucus Negative (Negative); WBC Negative HPF (0-5)
[2024-06-06 07:00] LABS: Anion Gap 7.3 mmol/L (3-11); BUN 4 mg/dL (7-18); CO2 25.7 mmol/L (21.0-32.0); CREATININE 0.5 mg/dL (0.55-1.02); Chloride 103 mmol/L (98-107); Estimated GFR 134.23 (mL/min/1.73m2); Glucose 92 mg/dL (74-106); Potassium 3.3 mmol/L (3.5-5.1); Sodium 136 mmol/L (136-145)
[2024-06-06 07:46] VITALS: BP 102/50; PULSE 84; O2SAT 98
[2024-06-06 07:51] VITALS: BP 102/50; PULSE 86; RESP 16; O2SAT 98
[2024-06-06 08:32] LABS: COVID-19 PCR Negative (Negative); Influenza A PCR Negative (Negative); Influenza B PCR Positive (Negative); RSV PCR Negative (Negative)
[2024-06-06 08:35] LABS: Source Nasopharynx
[2024-06-06 09:27] VITALS: BP 125/65; PULSE 112; RESP 19; O2SAT 99
--- NOTE | 2024-06-06 10:18 | DI.VRAD_ITS ---
PROCEDURE INFORMATION: Exam: US Retroperitoneal, Complete, Kidneys and Bladder Exam date and time: 06/06/2024 9:23 AM Age: 23 years old Clinical indication: Other: Back and flank pain l>r flank; 15 weeks TECHNIQUE: Imaging protocol: Real-time ultrasound of the retroperitoneum with image documentation. Complete exam focused on the bilateral kidneys and urinary bladder. COMPARISON: CT ABDOMEN PELVIS W 12/10/2023 4:02 PM FINDINGS: Right kidney: Right kidney 10.5 cm. Mild hydronephrosis of the right kidney. Left kidney: Left kidney 9.5 cm. No hydronephrosis. Urinary bladder: Bladder wall 1.8 mm. Prevoid bladder volume 425 cc. Postvoid bladder volume 1.6 cc. Bilateral ureteral jets heart rate: heart rate 161 bpm IMPRESSION: Mild hydronephrosis of the right kidney. Dictated and Authenticated by: Michael Mackenzie MD. Orderin Finn Hinojosa MD
[2024-06-06 10:33] VITALS: BP 101/55; PULSE 88; RESP 19; O2SAT 99
--- NOTE | 2024-06-06 10:55 | ED.PROG_ITS ---
Date of service: 06/06/24 Time of Service: 10:56 Medical Decision Making Patient was signed out to me by my colleague Dr. Briseno. Please refer to his HPI, physical exam, assessment and plan. At time of signout we are waiting ultrasonographic evaluation of the kidneys. Ultrasound shows evidence of mild right sided hydronephrosis but no left-sided. The patient's pain is definitely on the left side. It is notably improved now on reassessment. In addition to that her urine is notably negative with no suggestion of urinary tract infection. I did get a COVID/flu/RSV test as she had been COVID-positive, but were concern for potential source of the fever. She does have mild URI-like symptoms for the last 3 days. Influenza A is positive. I suspect this to be the cause of her fever as she shows no evidence of pyelonephritis or UTI. She has declined Tamiflu at this time. She feels well and would like to go home. With no evidence of obstructive uropathy, pain that is notably improved, and vital signs that remained stable I do feel that discharge is reasonable. We will recommend close follow-up with her obstetrics team at [facility]. She understands the plan. Patient will be discharged home. Discussed red flags for which to return. I have extensively reviewed the treatment plan and discharge instructions with the patient. I have addressed all patient concerns at this time. The patient was made aware of what symptoms to monitor for that would warrant a return to the emergency department. Discussed the plan with the patient, they demonstrate verbal understanding and agreement with our assessment and plan at this time. The documentation in this chart was dictated using [employer] dictation software. Please excuse any dictation errors. FINDINGS: Right kidney: Right kidney 10.5 cm. Mild hydronephrosis of the right kidney. Left kidney: Left kidney 9.5 cm. No hydronephrosis. Urinary bladder: Bladder wall 1.8 mm. Prevoid bladder volume 425 cc. Postvoid bladder volume 1.6 cc. Bilateral ureteral jets heart rate: heart rate 161 bpm IMPRESSION: Mild hydronephrosis of the right kidney. Thank you for allowing us to participate in the care of your patient. Dictated and Authenticated by: Michael Mackenzie MD 06/06/2024 10:18 AM Eastern Time ([place] & [place]) Quality:SDOH Health Related Social Needs: No Data to Display Discharge Plan Disposition Patient Disposition: Home Condition: Good Discharge Details Clinical Impression: Left flank pain, Second trimester , Influenza Primary Care Provider: Sania Mahoney ED Provider: Óscar Mei Home Meds and New Rx's Prescriptions: No Action lorazepam [Ativan] 0.5 mg tablet 0.5 mg PO BID PRN lisdexamfetamine [Vyvanse] 40 mg capsule 120 mg PO DIRECTED eszopiclone [Lunesta] 1 mg tablet 1 mg PO ONCE ondansetron 4 mg tablet,disintegrating 4 mg PO Q6H PRN (Reason: nausea and vomiting) Qty: 14 0RF Discharge Instructions Instructions: Flank Pain Additional Instructions: At this time your ultrasound shows no evidence of enlargement of your left kidney on the side of your pain. You do have very mild enlargement of your right kidney. No other significant abnormality. Please continue to drink plenty of fluids, stay well-hydrated, take Tylenol as needed for pain or fever. Your influenza test is positive, and this is likely the cause of your fever. If you notice any worsening of your symptoms, or any new symptoms such as vomiting, diarrhea, fever, chills, shortness of breath, chest pain, numbness, weakness, or fainting , please return immediately to the emergency department for reevaluation. Please follow up with your obstetrics spike machine feeder as soon as possible for reassessment and reevaluation. As always, it was a pleasure participating in your medical care today. Referrals: Sania Mahoney [Primary Care Provider] - Discharge Data Discharge Date/Time-TO BE ENTERED AT DEPARTURE: 06/06/24 11:33
[2024-06-06] MEDS: Acetaminophen 500 MG TAB 1000 MG PO (11:07)
== END 2024-06-06 11:33 | disposition home or self-care (01) ==
PROVIDERS: Emergency Medicine; Emergency Provider Student in an Organized Health Care Education/Training Program; PCP Internal Medicine
DX: J09.X2 Influenza due to identified novel influenza A virus with other respiratory manifestations (principal); O98.512 Other viral diseases complicating pregnancy, second trimester; M54.50 Low back pain, unspecified; R30.0 Dysuria; R50.9 Fever, unspecified; R05.1 Acute cough
CPT/HCPCS: 00123; 36415; 76770; 80048; 87637; 96365; 96375; 99284; 81003; 81015; 85025; J0131; J0696

== ENCOUNTER 2024-09-28 14:17 | Outpatient (REF) | payer MEDICAID, SELFPAY ==
[2024-09-28 18:29] LABS: *AMPHETAMINES SCREEN URINE Negative (Negative); *BARBITURATES SCREEN URINE Negative (Negative); *BENZODIAZEPINES SCREEN URINE Negative (Negative); Cannabinoids THC Positive (Negative); Cocaine Screen,Urine Negative (Negative); METHADONE URINE SCREEN Negative (Negative); OPIATES URINE SCREEN Negative (Negative)
[2024-09-28 18:32] LABS: Tricyclic Antidepressants Negative (Negative)
[2024-09-30 11:48] LABS: Fentanyl Scr w/Rfx Confirm Negative ng/mL (<1)
[2024-10-03 14:28] LABS: Buprenorphine Negative ng/mL (Cutoff: 5.0); Norbuprenorphine Negative ng/mL (Cutoff: 2.5)
== END 2024-09-28 14:18 | disposition home or self-care (01) ==
LOC: LBN 14:17
PROVIDERS: PCP Internal Medicine; Visit Provider Advanced Practice Midwife
DX: F12.90 Cannabis use, unspecified, uncomplicated (principal); Z34.93 Encounter for supervision of normal pregnancy, unspecified, third trimester
CPT/HCPCS: 80307; 80348

== ENCOUNTER 2024-10-15 01:04 | Outpatient (CLI) | payer MEDICAID, SELFPAY ==
[2024-10-16 11:57] LABS: Rubella IgG Ab (UVM) Positive (See Note)
[2024-10-16 12:09] LABS: Varicella IgG Antibody Negative (See Note)
[2024-10-16 21:26] LABS: Bile Acids, Total 4 mcmol/L (<=10)
== END 2024-10-15 01:05 | disposition home or self-care (01) ==
LOC: LBO 01:04
PROVIDERS: Advanced Practice Midwife; PCP Internal Medicine; Visit Provider Advanced Practice Midwife
DX: Z34.93 Encounter for supervision of normal pregnancy, unspecified, third trimester (principal); O99.713 Diseases of the skin and subcutaneous tissue complicating pregnancy, third trimester; L29.9 Pruritus, unspecified
CPT/HCPCS: 36415; 86787; 86850; 86900; 86901; 82239; 86762

== ENCOUNTER 2024-10-28 14:28 | Outpatient (REF) | payer MEDICAID, SELFPAY | END 2024-10-28 14:29 | disposition home or self-care (01) | LOC: LBN 14:28 | PROVIDERS: PCP Internal Medicine; Visit Provider Advanced Practice Midwife | DX: Z34.93 Encounter for supervision of normal pregnancy, unspecified, third trimester (principal); Z3A.36 36 weeks gestation of pregnancy | CPT/HCPCS: 87081 ==

== ENCOUNTER 2024-11-09 07:32 | Inpatient (IN) | payer MEDICAID, SELFPAY ==
[2024-11-09] VITALS (68 sets, daily range): BP systolic 90–168; BP diastolic 44–88; PULSE 49–108; RESP 18–20; TEMP 35.7–37.5; O2SAT 95–100; BMI 30.3
--- NOTE | 2024-11-09 07:34 | W.PM.OBHPL1 ---
Date of service: 11/09/24 Time of Service: 07:34 Assessment and Plan Assessment and plan (1) PROM (premature rupture of membranes): Status: Acute Assessment and plan: A: 23 yo @ 37+6 wks, early labor SROM clear fluid confirmed, category 1 tracing No increased risk for SD or PPH Hx notable for chronic GI issues, MJ & vaping, psych hx unmedicated during except lexapro for anxiety P: Admit to L&D, CBC and T&S Start IV access, ondansetron 8 mg, may require IV fluids due to vomiting Pt desires unmedicated labor, hopes for waterbirth but open to changes in plan as needed Expectant management at this time, intermittent auscultation Comfort measures as requested Anticipate OB-HPI Labor/Delivery History of Present Illness Reason for Visit: NST Chief Complaint: Uterine Contractions; Suspected Rupture of Membranes , Associated Signs and Symptoms of Suspected ROM: large gush of fluids after sneezing, since 247. No bleeding. Periodic trickling of fluids through the night, vomiting began prior to arrival in unit.. MYA Calculator Estimated Delivery Date Method Current WG Current Estimate 11/24/24 Ultrasound #1 37w 6d Other Estimates 11/10/24 LMP (Certain) 39w 6d 11/20/24 Ultrasound #2 38w 3d History of Present Expected Delivery Route/Plan - CNM FOB- Sulaiman Olsen (his first child) BB- yes to Howie moore Varicella non-immune, offer vaccines Interested waterbirth, nitrous, DCC GBS negative Specific Issues/Plan 1. Marijuana use in first trimester, occasional- UDS- THC pos, Family Care plan. Met with Arely Frederick Declined to sign FCP 2. tobacco use - occasional vaping 3, Covid and Flu and left flank pain- 05/2024 treated at [facility] ED, right hydronephrosis noted on US 4. pruritis - bile acids 07/01- 3, 10/19 - Bile acids 4 5. Nausea and vomiting in -treated with unisom and ondansetron. N/V daily & h/a's, will trial Reglan 5-10 mg q 6 to 8 hours (left VM to call back to review rare side effects when taking Reglan w/SSRI (in workload). 6. s/p cholecystectomy 2020 @ [facility], has bouts of diarrhea regularly 7. Social: @ 37 week visit Pt reports that two weeks ago her mom with recent diagnosis of lymphoma, awaiting prognosis Assessment: History Reviewed & Current Review of Systems All systems reviewed & are unremarkable except as noted in HPI and below Gastrointestinal Comments: Hx IBS, s/p cholecystectomy, chronic issues with nausea and vomiting, GERD, hx eating disorder Psychiatric Comments: ADHD, bipolar disorder, depression & anxiety Takes Lexapro Lunestra, Vyvanse and Ativan have been on hold for Uses marijuana and vaping, declined Family Care Plan. [facility] All Active Problems (Updated 11/09/24 @ 07:55 by Michelle Kruse) PROM (premature rupture of membranes) (Acute) Susceptible to varicella (non-immune), currently (Acute) Migraine (Chronic) ADHD (Acute) Marijuana use (Acute) (Acute) Medical History (Updated 11/09/24 @ 07:55 by Michelle Kruse) Pruritus of in second trimester Eating disorder Depressive disorder Generalized anxiety disorder with panic attacks GERD (gastroesophageal reflux disease) Bipolar disorder Surgical History History of wisdom tooth extraction History of cholecystectomy Family History (Updated 12/04/23 @ 14:14 by Karrie Sagastume) Mother Depression History of heart valve repair Migraine Father Depression Sister Migraine Social History (Updated 09/28/24 @ 13:15 by Elise Arana RN, RN) Smoking/Tobacco Use Status: Never Smoking risk assessment performed?: Yes Alcohol Intake: never Drug use: Daily Substance use type: marijuana Details: 2-4 hits a day when nauseous 06/06/24 Do you feel safe at home: Yes Do you feel safe in your relationship?: Yes Female Reproductive History Menstrual Age of Menarche: 12 control method: none History History 3 Para 0 Hx # Term Pregnancies 0 Multiple births 0 Hx # Pregnancies 0 Ectopic pregnancies 0 AB induced 0 Hx Number of Living Children 0 AB spontaneous 2 Meds Allergies and Home Medications Allergies Allergy/AdvReac Type Severity Reaction Status Date / Time Sulfa (Sulfonamide Allergy Skin Rash Verified 11/04/24 14:05 Antibiotics) tramadol Allergy Nausea Verified 11/04/24 14:05 Home Medications ?Medication ?Instructions ?Recorded ?Confirmed ?Type lisdexamfetamine 40 mg capsule 120 mg PO DIRECTED 12/04/23 11/09/24 History (Vyvanse) Held on 06/06/24. Instructions: lorazepam 0.5 mg tablet (Ativan) 0.5 mg PO BID PRN 12/04/23 11/09/24 History Held on 06/06/24. Instructions: eszopiclone 1 mg tablet (Lunesta) 1 mg PO ONCE 12/10/23 11/09/24 History Held on 06/06/24. Instructions: pyridoxine (vitamin B6) 25 mg 25 mg PO DAILY 09/28/24 11/09/24 History tablet (Vitamin B-6) ondansetron 4 mg disintegrating 4 mg PO Q6H PRN nausea and 10/27/24 11/09/24 Rx tablet vomiting #30 tabs escitalopram oxalate 5 mg tablet 10 mg PO DAILY 10/28/24 11/09/24 History Exam Physical Exam Vital signs: Pulse BP 60 114/78 11/09/24 07:09 11/09/24 07:09 Constitutional Constitutional: mild distress, average body habitus and cooperative Detailed Labor and Delivery Exam Dilation: 1 Effacement (%): 90 station: -2 Cervix position: posterior Consistency: soft Harden Score: Cervical Points Exam 0 1 2 3 Dilation Closed 1-2cm 3-4 cm 5-6cm Effacement 0-30% 40-50% 60-70% 80% Consistency Firm Medium Soft Station -3 -2 -1,0 +1,+2 Position Posterior Mid Anterior HARDEN Score(Cervical Ripeness Score): 7 Amniotic Membrane Status: Ruptured (gross rupture, fluid observed at introitus) Rupture Method: Spontaneous Amniotic Fluid: Clear Monitor Mode: External Contraction Frequency(min): q 4-5 min Contraction Intensity: Mild/Moderate Fetus A Heart Rate Baseline: 140 Monitor Accelerations: Present Monitor Decelerations: None Variability: Moderate (6-25 BPM) Categories: Category I HEENT Exam HEENT Exam: Normal Neck Exam Neck Exam: Normal Chest/Brest/Axilla Exam Chest Exam: Normal Breast Exam Breast Exam: Not Done Respiratory Exam Respiratory Exam: Normal Cardiovascular Exam Cardiovascular Exam: Normal Abdominal Exam Abdominal Exam: Normal (gravid, nontender) Rectal Exam Rectal Exam: Normal Exam Exam: Normal Extremities Exam Extremities Exam: Normal Back/Spine/Pelvis Exam Back Exam: Normal Pelvis Adequate: Yes Skin Exam Skin Exam: Normal Neurological Exam Neurological Exam: Normal Psychiatric Exam Psychiatric Exam: Normal Results Results Group Beta Strep: Negative Blood Type: AB+ Rubella Status: Immune Varicella Immunity: Nonimmune Risk Assessment Risk for Shoulder Dystocia Historical/Initial OB: NEGATIVE FOR: Pelvic Abnormality, Pre- BMI>30, Previous Shoulder Dystocia or Previous Macrosomia 36 Weeks: NEGATIVE FOR: Current Gestational DM, EFW>4500gms or Maternal Weight Gain>40lbs Increased Risk?: No Delivery Plan @ 36wks: Risk for Pre-Eclampsia Yes, if one or more: NEGATIVE FOR: Hx Pre-E/Gest HTN, Chronic HTN, Multiple Gestation, Pre-gestational DM, Renal Disease, Systemic Lupus or APA Syndrome Yes, if 2 or more: POSITIVE FOR: Nulliparity; NEGATIVE FOR: Age>= 35 yrs, >10yr btwn pregnancies, BMI>30, ethinicty, Mother/Sister w/ Pre-E or Previous IUGR Risk for Post- Hemorrhage Initial: NEGATIVE FOR: Multiple Gestation, Previous PPH, Known Clotting Deficiency, Grand Multiparity or Anticoagulation 36 Weeks: NEGATIVE FOR: Anemia, hgb<10, Low platelets(thrombocytopenia), Gestational HTN or Pre-E, Polyhydraminios or EFW>4500gms At Risk?: No Counseled re: Active Management: Yes Risks Reviewed Risks Reviewed Upon Admission: Yes
--- NOTE | 2024-11-09 08:56 | PGE_ITS ---
Date of service: 11/09/24 Time of Service: 08:56 Assessment and Plan Assessment and plan (1) PROM (premature rupture of membranes): Status: Acute Assessment and plan: A: uncontrolled vomiting, difficult IV access Pt unable to follow instructions easily due to distress P: Await RESEARCH AND INSIGHTS EXECUTIVE for IV start and lab draw Pt agrees to get in bed for procedure Plan IVF rehydration and anti-nausea medication Will discuss anesthesia and pain management options with pt once the vomiting is controlled Objective Temp Pulse BP 97.9 F 73 133/75 11/09/24 07:43 11/09/24 08:07 11/09/24 08:07 Objective Narrative Objective Narrative: Vomiting and retching, dry heaves, shaking and cold, took off monitors and went to the bathroom for diarrhea, then lay down in the shower in child's pose and fainted for a minute (no fall, impact or injury). Was assisted back to bed, BP 133/75, pt insisting she must get back to laying on the floor in the shower and got back out of bed to do so while staff was encouraging her stay in bed. Is attended by 3 family/friends plus FOB. Nurse unable to get IV access, lab unsuccessful at admission blood draw. RESEARCH AND INSIGHTS EXECUTIVE to come from OR with u/s to gain IV access, pt states she will return to bed for IV procedure.
[2024-11-09] MEDS: Ondansetron 4 MG/2 ML VIAL 8 MG IVP (09:05)
[2024-11-09] MEDS: Lactated Ringers 1,000 ML 200 ML IV ×2 (09:07→17:00)
[2024-11-09] MEDS: Normal Saline Flush 10 ML SYR IVP (09:11)
[2024-11-09 09:14] LABS: HCT 38.2 % (36.0-46.0); HGB 12.8 g/dL (11.2-15.7); MCH 28.8 pg (27.0-33.0); MCHC 33.5 % (32.0-36.0); MCV 86 fL (80-95); MPV 11.1 fL (8.0-11.0); Platelet Count 254 10^3/uL (130-400); RBC 4.45 10^6/uL (3.93-5.22); RDW 12.8 % (11.7-14.6); RDW-SD 39.8 fL; WBC 12.12 10^3/uL (4.4-10.8)
--- NOTE | 2024-11-09 09:54 | PGE_ITS ---
Date of service: 11/09/24 Time of Service: 09:54 Pelvic Exam Dilation: 2 Effacement (%): 90 station: -2 Cervix Position: posterior Ferning: Present Contractions Monitor Mode: Palpation Contraction Frequency(min): q2-4 Intensity: Mild/Moderate Fetus A Monitor: Doppler Heart Rate Baseline: 140 FHR Rhythm: Regular Characteristics: Normal Amniotic Membrane Status: Ruptured Assessment and Plan Assessment and plan (1) PROM (premature rupture of membranes): Status: Acute Assessment and plan: A: PROM, primip, early labor, difficulty coping with pain good response to ondansetron PROM x7 hrs, afebrile, normotensive, WBC @ 12.12 P: Continue IV Hydration, nubain 5 mg IV Explained to pt/family that immersion in tub is contraindicated given pt's emotional state and sedation Encourage pt to rest, monitor for labor progress Objective Abnormal lab results 11/09/24 Range/Units 09:00 WBC 12.12 H (4.4-10.8) 10^3/uL MPV 11.1 H (8.0-11.0) fL Temp Pulse BP 96.8 F L 73 133/75 11/09/24 09:42 11/09/24 08:07 11/09/24 08:07 Laboratory Results WBC 12.12 10^3/uL (4.4-10.8) H 11/09/24 09:00 RBC 4.45 10^6/uL (3.93-5.22) 11/09/24 09:00 Hgb 12.8 g/dL (11.2-15.7) 11/09/24 09:00 Hct 38.2 % (36.0-46.0) 11/09/24 09:00 MCV 86 fL (80-95) 11/09/24 09:00 MCH 28.8 pg (27.0-33.0) 11/09/24 09:00 MCHC 33.5 % (32.0-36.0) 11/09/24 09:00 RDW 12.8 % (11.7-14.6) 11/09/24 09:00 Plt Count 254 10^3/uL (130-400) 11/09/24 09:00 MPV 11.1 fL (8.0-11.0) H 11/09/24 09:00 Vital Signs Reviewed: Yes Objective Narrative Objective Narrative: CROWN WHEEL ASSEMBLER was able to gain IV access, IVF now infusing @ 200 ml/hr Zofran 8 mg IVP given, CBC and T&S drawn Pt lying on her side in bed under piles of fleece blankets brought from home Pt fairly nonverbal, keeping her head and face under the blankets Subjective Interval history since last seen: pt states she is miserable, contractions are getting increasingly painful, nausea continues even after ondansetron was given IVP, is requesting pain medication. Results Hemoglobin/Hematocrit: Hgb 12.8 g/dL (11.2-15.7) 11/09/24 09:00 Hct 38.2 % (36.0-46.0) 11/09/24 09:00
[2024-11-09] MEDS: NALBUPHINE 5 MG in Normal Saline 50 ML 100 MG IVPB (10:13)
[2024-11-09] MEDS: Ondansetron 4 MG/2 ML VIAL ×2 (13:06→17:00)
--- NOTE | 2024-11-09 13:43 | W.ANESPRE ---
General Info Date of Service Date Performed: 11/09/24 Height: 5 ft Weight: 70.398 kg Body Mass Index (BMI): 30.3 Meds Allergies and Home Medications Allergies Allergy/AdvReac Type Severity Reaction Status Date / Time Sulfa (Sulfonamide Allergy Skin Rash Verified 11/04/24 14:05 Antibiotics) tramadol Allergy Nausea Verified 11/04/24 14:05 Home Medication ?Medication ?Instructions ?Recorded lisdexamfetamine 40 mg capsule 120 mg PO DIRECTED 12/04/23 (Vyvanse) Held on 06/06/24. Instructions: lorazepam 0.5 mg tablet (Ativan) 0.5 mg PO BID PRN 12/04/23 Held on 06/06/24. Instructions: eszopiclone 1 mg tablet (Lunesta) 1 mg PO ONCE 12/10/23 Held on 06/06/24. Instructions: pyridoxine (vitamin B6) 25 mg 25 mg PO DAILY 09/28/24 tablet (Vitamin B-6) ondansetron 4 mg disintegrating 4 mg PO Q6H PRN nausea and 10/27/24 tablet vomiting #30 tabs escitalopram oxalate 5 mg tablet 10 mg PO DAILY 10/28/24 Current Visit Medications: Current Medications Generic Name Dose Route Start Last Admin Trade Name Freq PRN Reason Stop Dose Admin Ringer's Solution 1,000 mls @ 200 mls/hr 11/09/24 09:30 11/09/24 09:07 IV 200 mls/hr INFUSION BREANNE Administration IV Miscellaneous Supplies 1 each 11/09/24 07:45 Iv Access IV DIRECTED BREANNE Sodium Chloride 0 ml 11/09/24 07:32 Normal Saline Flush 10 Ml Syr IVP PRN PRN Sodium Chloride 0 ml 11/09/24 08:30 11/09/24 09:11 Normal Saline Flush 10 Ml Syr IVP 20 ml BID BREANNE Administration Sodium Chloride 0 ml 11/09/24 07:32 Normal Saline 10 Ml Vial IJ DIRECTED PRN PFSH Active Problems Active Problems: Problem Status Onset Code PROM (premature rupture of membranes) Acute O42.90 Susceptible to varicella (non-immune), currently Acute O09.899, Z28.39 Migraine Chronic G43.909 ADHD Acute F90.9 Marijuana use Acute F12.90 Acute Z34.90 Medical History Medical History (Updated 11/09/24 @ 07:55 by Michelle Kruse) Pruritus of in second trimester Eating disorder Depressive disorder Generalized anxiety disorder with panic attacks GERD (gastroesophageal reflux disease) Bipolar disorder Surgical History Surgical History History of wisdom tooth extraction History of cholecystectomy Tobacco Smoking/Tobacco Use Status: Never Alcohol Alcohol Intake: never Substance Use Substance use: Daily Substance use type: marijuana Details: 2-4 hits a day when nauseous 06/06/24 Prental History History 3 Para 0 Hx # Term Pregnancies 0 Multiple births 0 Hx # Pregnancies 0 Ectopic pregnancies 0 AB induced 0 Hx Number of Living Children 0 AB spontaneous 2 Vital Signs and Lab Results Vital Signs Most Recent Vital Signs in EMR: Most Recent Vital Signs Temp Pulse Resp BP 35.9 C L 53 L 20 125/75 11/09/24 13:12 11/09/24 10:13 11/09/24 10:13 11/09/24 10:13 Point of Care Results Point of Care Results: Finger Stick Blood Glucose 96 11/09/24 08:04 Lab Results 11/09/24 09:00 Blood Type / Crossmatch: Antibody Screen NEGATIVE Today Complete Blood Count: WBC, (4.4-10.8) 12.12 10^3/uL H Today, 09:00 RBC, (3.93-5.22) 4.45 10^6/uL Today, 09:00 Hgb, (11.2-15.7) 12.8 g/dL Today, 09:00 Hct, (36.0-46.0) 38.2 % Today, 09:00 Plt Count, (130-400) 254 10^3/uL Today, 09:00 Anesthesia Assessment and Plan Anesthesia History Personal History: No History of Anesthesia Complications Family History: No Family History of Anesthesia Complications Exercise Tolerance Exercise Tolerance: Metabolic Equivalents>4 Pertinent Negatives Pertinent Negatives: No Major Cardiovascular Symptoms or Complaints, No Major Pulmonary Symptoms or Complaints and No History of CVA/TIA Cardiac & Pulmonary Exam Cardiac Exam: Normal S1/S2 Heart Sounds Pulmonary Exam: Clear Bilateral Breath Sounds Implantable Cardiac Device Does patient have a Pacemaker or an ICD?: No Airway Exam Known Difficult Airway: No Mallampati Class: 2 Mouth Opening: Normal (> 3cm) Thyromental Distance: Greater than 3 cm Neck Range of Motion: Full ROM Neck Circumference: Normal Teeth Condition: Normal Dentition ASA Classification ASA Score: ASA 2 Emergency Case?: No NPO Status NPO Status: NPO Clears >2 hours, Solids >8 hours Status Status: Confirmed Anesthesia Plan Resuscitation Status: Full Code Anesthesia Technique: Epidural Anesthesia Airway Planned: Natural Airway Pain Management: Surgeon and patient request nerve block Monitors Used: Standard Monitors
--- NOTE | 2024-11-09 13:53 | W.PM.OBNL1 ---
Date of service: 11/09/24 Time of Service: 13:53 Informed Consent Informed Consent: Regional Anesthesia and Risk,Benefits,Alternatives Discussed Pelvic Exam Dilation: 2.5 Effacement (%): 95 station: -1 Cervix Position: posterior Contractions Monitor Mode: Palpation Contraction Frequency(min): q2-4 Intensity: Moderate Fetus A Monitor: Doppler Heart Rate Baseline: 135 FHR Rhythm: Regular Characteristics: Normal Amniotic Membrane Status: Ruptured Assessment and Plan Assessment and plan (1) PROM (premature rupture of membranes): Status: Acute Assessment and plan: A: Need for pain management in primipara, early labor P: OFFICE CLINICIAN notified of request for epidural anesthesia IVF infusing well, pt has been voiding qs Once epidural is in place will change to clear liquids and continuous EFM Continue to monitor for labor progression Objective Vital Signs Reviewed: Yes Objective Narrative Objective Narrative: Pt given nubain 5 mg IV @ 1030, rested and dozed in bed under many fleece blankets, Emesis x1 in past hour as medication is waning and contractions are increasing Pt tearful & very sad, receiving support from her mother and friends Discussed with pt and supports that repeating IV analgesia will be less effective with each repeat dose I recommeded pt consider epidural anesthesia, pt agrees to give this a try Subjective Interval history since last seen: Pt states she is upset with herself, states nausea and pain is too much, she can not do this, would be happy to just go to the OR and get this baby out of me. Agrees to try epidural anesthesia. Results Hemoglobin/Hematocrit: Hgb 12.8 g/dL (11.2-15.7) 11/09/24 09:00 Hct 38.2 % (36.0-46.0) 11/09/24 09:00
[2024-11-09] MEDS: FentaNYL/ROPIvacaine 2 mcg/ml and 0.1% 200 ML CADD Cassette EP (14:00)
--- NOTE | 2024-11-09 14:20 | W.ANESNEU ---
Epidural/Spinal Catheter Date Performed: 11/09/24 Procedure Start: 14:01 Procedure Stop: 14:06 Requesting Provider: Michelle Kruse Procedure Location: Obstetrics Reason Performed: Labor Epidural Standard Monitors Applied: Blood Pressure, SpO2 and See EMR for corresponding vital signs Patient Position: Sitting Sedation Given (Indicate Dose Given): No Sedation given Patient Mental Status: Awake Sterility: Hand Hygiene, Surgical Cap, Surgical Mask, Sterile Gloves, Sterile Drape/Sheet and Chlorhexidine Procedure Location: L3-L4 Interspace Epidural Needle: Tuohy 17 Guage Needle Length: 4 Inch Needle Approach: Midline Epidural Procedure: Skin Prepped, Sterile Drape Placed, 1% Lidocaine to skin and subcutaneous tissue with 25G needle, KO to Saline Used, Epidural Catheter Placed, Catheter Met Resistance, Tuohy and Catheter Removed, Negative Heme, Negative CSF Flow and Tuohy Needle Removed Catheter Placed?: Catheter Placed Test Dose (Indicate Dose Given): 5ml 1.5% Lidocaine with 1:200K Epinephrine Given and Negative Test Dose Loss of Resistance Depth (cm): 9 Catheter depth at skin (cm): 14 Dressing: Tegaderm Applied, Mastisol Used and Dressing reinforced with Tape Epidural Provider Bolus (Indicate Dose Given): Total bolus dose given in 3-5 ml divided doses and Total Ropivacaine 0.1% with Fentanyl 2mcg/ml Given from pump. (ml) Dose:: 10 Additives (Indicate Dose Given ): None Infusion Medication: Medication Infusion Began Medication Infusion: Ropivacaine 0.1% with Fentanyl 2mcg/ml Maintenance Infusion Rate (ml/hour): 10 PCEA Bolus Dose (ml): 5 Block Level: N/A Paresthesia: Left Paresthesia Duration: Transient Ultrasound: Not Used Number of Attempts (See previous attempts in note section): 1 Procedure Tolerated: No Complications and Patient tolerated well Procedure Outcome: Successful Performed By: Frank Sánchez
[2024-11-09] MEDS: ePHEDrine 50 MG/ML VIAL IVP (14:39)
[2024-11-09] MEDS: Calcium Carbonate *TUMS* 500 MG CHEW PO (16:08)
--- NOTE | 2024-11-09 16:14 | W.PM.OBNL1 ---
Date of service: 11/09/24 Time of Service: 16:15 Informed Consent Informed Consent: Regional Anesthesia and Risk,Benefits,Alternatives Discussed Pelvic Exam Comments: exam deferred at this time Contractions Monitor Mode: External Contraction Frequency(min): Q4-5 Intensity: Mild/Moderate Fetus A Monitor: External (US) Heart Rate Baseline: 145 Variability: Moderate (6-25 BPM) Categories: Category I Accelerations: Present Decelerations: None Amniotic Membrane Status: Ruptured Assessment Note: During epidural induction pt became hypotensive and concurrently FHT decelerated. Ephedrine was given and pt's BP returned to baseline, FHT also returned to category 1 status. Pt currently positioned in right lateral tilt. Assessment and Plan Assessment and plan (1) PROM (premature rupture of membranes): Status: Acute Assessment and plan: A: Effective epidural, PROM, primipara, GBS neg, early labor s/p hypotensive episode at time of epidural placement P: Cvx exam planned shortly, Will recommend pitocin induction if no change from previous exam Objective Vital Signs Reviewed: Yes Subjective Interval history since last seen: pt is pleased with the effectiveness of her epidural, is smiling and conversing with her visitors, denies nausea.
[2024-11-09] MEDS: Calcium Carbonate *TUMS* 500 MG CHEW (16:59)
--- NOTE | 2024-11-09 19:57 | W.PM.OBNL1 ---
Date of service: 11/09/24 Time of Service: 19:57 Informed Consent Informed Consent: Augmentation of Labor and Risk,Benefits,Alternatives Discussed Pelvic Exam Dilation: 3 Effacement (%): 100 station: 0 Cervix Position: mid Contractions Monitor Mode: External Contraction Frequency(min): q3-4 Intensity: Mild/Moderate Fetus A Monitor: External (US) Heart Rate Baseline: 150 Variability: Moderate (6-25 BPM) Categories: Category I Accelerations: Present Decelerations: None Amniotic Membrane Status: Ruptured Assessment Note: 5 minute decel noted while pt positioned supine, resolved with right lateral position Assessment and Plan Assessment and plan (1) PROM (premature rupture of membranes): Status: Acute Assessment and plan: A: Inadequate contraction pattern, effective anesthesia Category 1 tracing P: Pt consents to pitocin augmentation Anticipate Objective Vital Signs Reviewed: Yes Subjective Interval history since last seen: Remains comfortable with epidural
[2024-11-09] MEDS: Oxytocin/Normal Saline 30 UNIT/500 ML BAG 1 UNITS IV (20:17)
[2024-11-09] MEDS: Lactated Ringers 250 ML 500 ML IV (20:48)
[2024-11-09] MEDS: Ondansetron 4 MG/2 ML VIAL IVP (21:35)
[2024-11-10] VITALS (8 sets, daily range): BP systolic 101–129; BP diastolic 61–76; PULSE 59–96; RESP 12–20; TEMP 36.8–37.4; O2SAT 97–98
--- NOTE | 2024-11-10 00:11 | OBVDS_ITS ---
Date of service: 11/09/24 Time of Service: 23:30 OB Labor/ Delivery Information Baby A Delivery Delivery Method: Spontaneaous Presentation: Cephalic Cephalic Position: Vertex Vertex Position: Left Occipital Anterior Breech Position: N/A Cord Description-Baby A: 3 Vessels Amniotic Fluid: Clear Quantitative Blood Loss: 300 Delivery Outcome: Liveborn Transferred: Remains with Mother Note: At 2009 cvx exam showed minimal change from previous exam 2 hrs earlier @ 3/100% and 0 station, discussed risks and benefits of pitocin augmentation with pt and she consented, pitocin was started but due to prolonged decel was turned off after 20 minute initial infusion. FHT's stabilized with maternal positioning and Dr. Moreno was notified of intolerance of augmentation. Category 2 tracing with variable and early decels continued though overall reassuring due to moderate variability, periods of signal loss during frequent maternal position changes made determining baseline difficult at times though there was concern for late decels, tracing was reviewed by Dr. Moreno and she remained on the unit. Discussed applying FSE with pt which she declined. By 2239 plan made to recheck cvx for progress to determine route of delivery in setting of increasingly nonreassuring category 2 tracing; however pt reported a feeling of increased pelvic pressure with visible bloody show, exam revealed full dilation with head at the perineum, pt encouraged to push with strong effort, FHT's dropped to 90's but progress was excellent and was accomplished within 10 minutes of a vigorous male infant who was handed to mother immediately. pitocin bolus started, cord clamped and cut by pt's friend, cord blood collected, [place] placenta delivered intact with 3VC, lochia was minimal and fundus firm below umbilicus. 2nd degree laceration was repaired under epidural anesthesia using 3.0 Vicryl, strong family bonding observed, apgars 7/9, weight 2810 gms. Providers Nurse Air Valve Mechanic: Michelle Kruse Front End Drupal Developer: Frank Sánchez Nurse: Fadia Tatum Nurse: Vanessa Barrios Labor/Delivery Information Steroids Given: None Group Beta Strep: Negative Antibiotics Administered: No Rubella Status: Immune Blood Type: AB+ Varicella Immunity: Nonimmune Medication in Delivery: epidural, Shoulder Dystocia: No Stages of Labor Onset of Labor Date: 11/09/24 Onset of Labor Time: 03:00 Complete Dilatation Date: 11/09/24 Complete Dilatation Time: 22:48 Labor - Stage 1 Duration: 19 hours and 48 minutes ROM Baby A: 11/09/24 ROM Baby A: 03:00 ROM Total Time- Baby A: [id number] Delivery Date-Baby A: 11/09/24 Infant Delivery Time-Baby A: 23:02 Labor Stage 2 Duration: 14 minutes Placenta Delivery Date-Baby A: 11/09/24 Placenta Delivery Time-Baby A: 23:10 Labor-Stage 3 Duration: 8 minutes Total Length of Labor-Baby A: 20 hours and 2 minutes Placenta Cultured: No Placenta Status: Delivered Baby A Gender: Male Gestational Status: Early Term (37-38.6 wks) Gestational Age in Weeks/Days: 37 Weeks and 6 Days weight: 6 lb 3.12 oz Weight Comment: 2810 gms Score-5 Minute Interval(Baby A) Heart Rate- 5 minute: 100 BPM or Greater Respiratory Effort-5 minute: Slow Respiration/Weak Cry Muscle Tone-5 minute: Active Movement Reflex Response-5 minute: Prompt Response Color-5 minute: Pallor or Cyanosis Total Score- 5 minute: 7
[2024-11-10] MEDS: Escitalopram 10 MG TAB PO ×2 (00:31→23:11)
[2024-11-10] MEDS: Acetaminophen 325 MG TAB 650 MG PO ×3 (00:43→10:31)
[2024-11-10] MEDS: Ibuprofen 600 MG TAB PO ×2 (00:43→10:31)
[2024-11-10] MEDS: Dibucaine 1% 28 GM TUBE TP (00:44)
[2024-11-10] MEDS: Calcium Carbonate *TUMS* 500 MG CHEW PO (02:10)
--- NOTE | 2024-11-10 04:38 | NUR.NOTE ---
Nursing Note: Pt up in room independently. No complaints of dizziness. Pt encouraged to express needs and to call for assistance.
[2024-11-10] MEDS: Docusate Sodium 100 MG CAP PO (10:31)
--- NOTE | 2024-11-10 11:05 | W.ANESPOSTOP ---
Postoperative Evaluation Date, Time and Location Date Performed: 11/10/24 Time Performed: 10:51 Patient Location: Obstetrics Vital Signs Most Recent Imported Vital Signs: Most Recent Vital Signs Temp Pulse Resp BP Pulse Ox 36.9 C 59 L 12 116/73 97 11/10/24 09:30 11/10/24 09:30 11/10/24 09:30 11/10/24 09:30 11/10/24 03:00 Pain Score Most Recent Pain Score: Most Recent Pain Score Pain Level [abd] 2 11/10/24 09:30 Pain Level 6 11/10/24 10:31 Assessment Mental Status: Awake (Alert & Oriented to Patient Baseline) Airway and Respiratory Function: Patent airway with normal (patient baseline) respiratory exam Cardiovascular Function: Hemodynamically Stable Hydration Status: Adequately Hydrated Nausea & Vomiting: No Nausea or Vomiting Pain: Pain is tolerable per patient Peripheral Nerve Block: Patient did not receive a nerve block
--- NOTE | 2024-11-10 22:08 | W.PM.OBPNV1 ---
Date of service: 11/10/24 Time of Service: 11:00 Assessment and Plan Assessment and plan (1) Term delivered: Status: Acute Assessment and plan: A: PPD#1, nml recovery satisfied with experience is off to a good start P: Routine PP care, plan discharge tomorrow Offer Varicella vaccine prior to discharge Pt plans not to use contraception at this time [place] circumcision is planned Subjective Subjective Patient comments: No complaints, Pain well controlled, Tolerating diet and Flatus present Patient's Mood: happy [place] baby status: Doing well, Nursing well, Rooming in and Strong Bonding Observed feeding status: Exclusively breast feeding Exam Physical Exam Vital signs: Temp Pulse Resp BP Pulse Ox 98.4 F 59 L 12 116/73 97 11/10/24 09:30 11/10/24 09:30 11/10/24 09:30 11/10/24 09:30 11/10/24 03:00 Vital Signs Reviewed: Yes Constitutional Constitutional: no acute distress, mild distress, average body habitus and cooperative HEENT Exam HEENT Exam: Normal Neck Exam Neck Exam: Normal Breast Exam Bilateral: Breast Exam: Normal and Soft Nipple Exam: Normal and Uninjured Respiratory Exam Respiratory Exam: Normal Cardiovascular Exam Cardiovascular Exam: Normal Abdominal Exam Abdomen: Other (soft, nontender) Fundal Exam Fundus: Below Umbilicus and Firm Rectal Exam Rectal Exam: Normal Exam Perineum: Repair Intact Extremities Exam Extremity Exam: Normal, Full ROM and Warm to Touch Back/Spine/Pelvis Exam Back Exam: Normal Skin Exam Skin Exam: Normal Neurological Exam Neurological Exam: Normal Psychiatric Exam Psychiatric Exam: Normal
[2024-11-11] MEDS: Acetaminophen 325 MG TAB 650 MG PO ×2 (00:05→10:05)
[2024-11-11 00:10] VITALS: BP 118/72; PULSE 62; RESP 17; TEMP 36.8; O2SAT 97
[2024-11-11] MEDS: hydrOXYzine PAMOATE 25 MG CAP 50 MG PO (00:49)
[2024-11-11 08:20] VITALS: BP 122/88; PULSE 76; RESP 16; TEMP 36.7; O2SAT 98
--- NOTE | 2024-11-11 11:23 | OBPPV_ITS ---
Date of service: 11/11/24 Time of Service: 11:23 Assessment and Plan Assessment and plan (1) Term delivered: Status: Acute Assessment and plan: A: PPD#2, nml recovery satisfied with experience is going reasonably well P: Discharge today Offer Varicella vaccine prior to discharge Pt plans not to use contraception at this time circumcision completed Written instructions reviewed adn given to pt F/up at 2 and 6 wks Subjective Subjective Patient comments: No complaints, Pain well controlled, Tolerating diet and Flatus present Patient's Mood: happy baby status: Doing well, Nursing well, Rooming in and Strong Bonding Observed [place] feeding status: Exclusively breast feeding Exam Physical Exam Vital signs: Temp Pulse Resp BP Pulse Ox 98.1 F 76 16 122/88 98 11/11/24 08:20 11/11/24 08:20 11/11/24 08:20 11/11/24 08:20 11/11/24 08:20 Vital Signs Reviewed: Yes Constitutional Constitutional: no acute distress, mild distress, average body habitus and cooperative HEENT Exam HEENT Exam: Normal Neck Exam Neck Exam: Normal Breast Exam Bilateral: Breast Exam: Normal and Soft Respiratory Exam Respiratory Exam: Normal Cardiovascular Exam Cardiovascular Exam: Normal Abdominal Exam Abdomen: Other (soft, nontender) Fundal Exam Fundus: Below Umbilicus and Firm Rectal Exam Rectal Exam: Normal Exam Perineum: Repair Intact Extremities Exam Extremity Exam: Normal, Full ROM and Warm to Touch Back/Spine/Pelvis Exam Back Exam: Normal Skin Exam Skin Exam: Normal Neurological Exam Neurological Exam: Normal Psychiatric Exam Psychiatric Exam: Normal Additional findings Additional findings: exam deferred at this time Hemorrrhage Note IV Site Left Forearm: IV Catheter Gauge: 18
--- NOTE | 2024-11-11 11:24 | W.PM.OBDISCH ---
Date of service: 11/11/24 Time of Service: 11:24 DS: Diagnosis Discharge Diagnosis (1) Term delivered: Status: Acute Discharge Plan Disposition Patient Disposition: Home Condition: Good Discharge Details Reason For Visit: NST Admit Date/Time: 11/09/24 07:32 Admit Provider: Michelle Kruse Attending Provider: Michelle Kruse Primary Care Provider: Sania Mahoney Hospital Course Hospital Course: Admitted in early labor after SROM, under epidural anesthesia, nml recovery Home Meds and New Rx's Prescriptions: No Action pyridoxine (vitamin B6) [Vitamin B-6] 25 mg tablet 25 mg PO DAILY escitalopram oxalate 5 mg tablet 10 mg PO DAILY lorazepam [Ativan] 0.5 mg tablet 0.5 mg PO BID PRN lisdexamfetamine [Vyvanse] 40 mg capsule 120 mg PO DIRECTED ondansetron 4 mg tablet,disintegrating 4 mg PO Q6H PRN (Reason: nausea and vomiting) Qty: 30 1RF eszopiclone [Lunesta] 1 mg tablet 1 mg PO ONCE Discharge Instructions Additional Instructions: Please keep 2 and 6 week appointments with the midwives, call for any and all concerns. Stand Alone Forms: Instructions, Post Vaginal Deliver Activity:: Activity as Tolerated Equipment/Supplies:: No Equipment Needed Diet:: Normal Diet OB:DS Summary Summary Vaginal Delivery Method: Spontaneaous Episiotomy Description: Midline Laceration Description: Perineal Laceration Extension: Second Degree Contraception Discussed Contraception Discussed: Yes Contraceptive Plan: Not planning to use, [place] Gender-Baby A: Male weight: 6 lb 3.12 oz Status at Discharge Functional status at discharge: independent ambulation Overall status at discharge: patient is progressing back to baseline Mental Status: mental status grossly normal Speech and Movement: speech and movement normal and speech clear Mood: congruent mood Affect: normal affect Exam Physical Exam Vital signs: Temp Pulse Resp BP Pulse Ox 98.1 F 76 16 122/88 98 11/11/24 08:20 11/11/24 08:20 11/11/24 08:20 11/11/24 08:20 11/11/24 08:20 Constitutional Constitutional: no acute distress, mild distress, average body habitus and cooperative HEENT Exam HEENT Exam: Normal Neck Exam Neck Exam: Normal Breast Exam Bilateral: Breast Exam: Normal and Soft Respiratory Exam Respiratory Exam: Normal Cardiovascular Exam Cardiovascular Exam: Normal Abdominal Exam Abdomen: Other (soft, nontender) Fundal Exam Fundus: Below Umbilicus and Firm Rectal Exam Rectal Exam: Normal Exam Perineum: Repair Intact Extremities Exam Extremity Exam: Normal, Full ROM and Warm to Touch Back/Spine/Pelvis Exam Back Exam: Normal Skin Exam Skin Exam: Normal Neurological Exam Neurological Exam: Normal Psychiatric Exam Psychiatric Exam: Normal Additional findings Additional findings: exam deferred at this time [facility] All Active Problems Term delivered (Acute) Susceptible to varicella (non-immune), currently (Acute) Migraine (Chronic) ADHD (Acute) Marijuana use (Acute) Medical History (Updated 11/10/24 @ 22:11 by Michelle Kruse) PROM (premature rupture of membranes) Pruritus of in second trimester Eating disorder Depressive disorder Generalized anxiety disorder with panic attacks GERD (gastroesophageal reflux disease) Bipolar disorder Surgical History History of wisdom tooth extraction History of cholecystectomy Family History (Updated 12/04/23 @ 14:14 by Karrie Sagastume) Mother Depression History of heart valve repair Migraine Father Depression Sister Migraine Social History (Updated 09/28/24 @ 13:15 by Elise Arana RN, RN) Smoking/Tobacco Use Status: Never Smoking risk assessment performed?: Yes Alcohol Intake: never Drug use: Daily Substance use type: marijuana Details: 2-4 hits a day when nauseous 06/06/24 Do you feel safe at home: Yes Do you feel safe in your relationship?: Yes Female Reproductive History Menstrual Age of Menarche: 12 control method: none History History 3 Para 0 Hx # Term Pregnancies 0 Multiple births 0 Hx # Pregnancies 0 Ectopic pregnancies 0 AB induced 0 Hx Number of Living Children 0 AB spontaneous 2 DS: Data Vitals/I&O Vitals and I&O: Vital Signs Temperature 98.1 F 11/11/24 08:20 Temperature Source Oral 11/11/24 08:20 Pulse 76 11/11/24 08:20 Pulse Rhythm Regular 11/11/24 09:00 Respiratory Rate 16 11/11/24 08:20 Blood Pressure 122/88 11/11/24 08:20 Blood Pressure Mean 99 11/11/24 08:20 Pulse Oximetry 98 11/11/24 08:20 Oxygen Delivery Method Room Air 11/09/24 07:10 Oxygen Flow Rate 0 11/09/24 07:10 Pain Level 2 11/11/24 10:05 Intake & Output 11/10/24 11/10/24 11/11/24 11:59 23:59 11:59 Intake Total 6.433 / 6.433 Output Total 350 / 350 Balance -343.567 / -343.567 Intake: IV 6.433 / 6.433 Output: Urine 350 / 350
[2024-11-12 12:24] VITALS: BP 115/66; PULSE 96
== END 2024-11-11 13:15 | disposition home or self-care (01) | DRG 806 ==
LOC: BCD 23:00 → OBS 23:00
PROVIDERS: Admitting Provider Advanced Practice Midwife; PCP Internal Medicine; Visit Provider Advanced Practice Midwife
DX: O42.02 Full-term premature rupture of membranes, onset of labor within 24 hours of rupture (principal); F31.89 Other bipolar disorder; Z37.0 Single live birth; O99.324 Drug use complicating childbirth; O99.354 Diseases of the nervous system complicating childbirth; Z3A.37 37 weeks gestation of pregnancy; Z28.39 Other underimmunization status; F12.90 Cannabis use, unspecified, uncomplicated; O99.334 Smoking (tobacco) complicating childbirth; F17.290 Nicotine dependence, other tobacco product, uncomplicated; O99.344 Other mental disorders complicating childbirth; O99.62 Diseases of the digestive system complicating childbirth; F90.9 Attention-deficit hyperactivity disorder, unspecified type; G43.909 Migraine, unspecified, not intractable, without status migrainosus; L29.9 Pruritus, unspecified; F41.0 Panic disorder [episodic paroxysmal anxiety]; K21.9 Gastro-esophageal reflux disease without esophagitis; F50.9 Eating disorder, unspecified; O76 Abnormality in fetal heart rate and rhythm complicating labor and delivery; O70.1 Second degree perineal laceration during delivery
CPT/HCPCS: 85027; 86850; 86900; 86901; J2300; J2405

== ENCOUNTER 2024-12-09 14:55 | Outpatient (REF) | payer MEDICAID, SELFPAY | END 2024-12-09 14:56 | disposition home or self-care (01) | LOC: LBN 14:55 | PROVIDERS: PCP Internal Medicine; Visit Provider Advanced Practice Midwife | DX: N89.8 Other specified noninflammatory disorders of vagina (principal) | CPT/HCPCS: 87480; 87510; 87660 ==

== ENCOUNTER 2025-02-01 12:46 | Outpatient (CLI) | payer MEDICAID, SELFPAY ==
--- NOTE | 2025-02-01 13:15 | DI.US_ITS ---
Exam(s) US PELVIS TRANSVAGINAL EXAM: US PELVIS TRANSVAGINAL CLINICAL HISTORY: N93.9 Vaginal bleeding, Rule out retained products of conception TECHNIQUE: Transabdominal and transvaginal imaging was performed using standard protocol. COMPARISON: US US RENAL from 06/06/2024 FINDINGS: UTERUS: Anteverted. 7.4 x 2.7 x 4.3 cm Endometrium: 4 mm no evidence of retained products of conception. Myometrium: Unremarkable. Cervix: Unremarkable. OVARIES: Right: Cyst or mass: 4.4 centimeter simple cyst. Left: Cyst or mass: None. DOPPLER: Color: Symmetric and uniform flow to both ovaries. No hyperemia. CUL-DE-SAC: Free fluid: None. IMPRESSION: 1. Normal-appearing uterus with endometrial stripe within normal limits. 2. 4.4 centimeter cyst of the right ovary. DATA REPOSITORY:
== END 2025-02-01 13:06 ==
LOC: DI 12:47
PROVIDERS: PCP Internal Medicine; Visit Provider Advanced Practice Midwife
DX: N93.9 Abnormal uterine and vaginal bleeding, unspecified (principal); N83.291 Other ovarian cyst, right side
CPT/HCPCS: 76830; 76856

== ENCOUNTER 2025-02-01 13:02 | Outpatient (REF) | payer MEDICAID, SELFPAY ==
--- NOTE | 2025-02-01 12:15 | PAPFT_PTH ---
PATIENT: Lakisha Griffith LOC: [facility] U#:[id number] AGE/SX: 24/F ROOM: RE02/01/[address]: Suzanna Dickens : 2000 BED: DIS: 02/01/2025 SPEC #: [id number] RECD: 02/01/25 17:05 STATUS: ALEXI REIker #: [id number] STEPH: 02/01/25 12:[address]: Suzanna Dickens DEPT: [facility] Cytology RECD BY: Cristela Polanco ENTERED: 02/01/25 17:06 SP TYPE: PAPFT OTHR DR: Sania Mahoney Tissues: 1 - CX/ENDOCX FOR PAP SMEARS Procedures: PAP THIN PREP/UVM Screening HPV DNA PROBE Comments: [id number] (HPV 16 & 18/45)
== END 2025-02-01 13:03 | disposition home or self-care (01) ==
LOC: LBN 13:02
PROVIDERS: PCP Internal Medicine; Visit Provider Advanced Practice Midwife
DX: Z12.4 Encounter for screening for malignant neoplasm of cervix (principal)
CPT/HCPCS: 88142; 87624

== ENCOUNTER 2025-02-01 17:47 | Emergency (ER) | payer MEDICAID, SELFPAY ==
[2025-02-01] VITALS (7 sets, daily range): BP systolic 107–126; BP diastolic 68–96; PULSE 58–82; RESP 16; TEMP 36.2–37.2; O2SAT 98–100
--- NOTE | 2025-02-01 17:45 | RT.EKG_ITS ---
APPROVED REPORT Exam: Resting ECG Reason for Exam: syncope Patient Location: E HR:76 bpm ECG Measurements Heart Rate 76 AXIS ID 142 P 21 QRSd 99 QRS -20 QT 397 T 45 QTc 446 Conclusion Sinus rhythm...normal P axis, V-rate 60- [address] segment or T wave abnormalities to suggest occlusive CO
--- NOTE | 2025-02-01 18:28 | ED.GENADUL_ITS ---
Discharge Plan Disposition Patient Disposition: Home Condition: Good Discharge Details Clinical Impression: Syncope Primary Care Provider: aSnia Mahoney ED Provider: Belkis Chaudhari Home Meds and New Rx's Prescriptions: Continued escitalopram oxalate 5 mg tablet 10 mg PO DAILY clindamycin HCl [Cleocin HCl] 300 mg capsule 300 mg PO Q6H Discharge Instructions Instructions: Fainting, Adult ED Additional Instructions: Call your primary care doctor in the morning to schedule an appointment for within the next 72 hours to followup on your visit here. Keep your appointment for iron infusions. Return to the emergency department for new or worsening symptoms including chest pain, shortness of breath, palpitations, if you pass out again, or if you have any other concerns. HPI General Mode of arrival: ambulatory . Date/Time Provider Initiated Documentation: 02/01/25 17:50 . Limitations to Documentation: no limitations . Information obtained by: patient . HPI Narrative: 24yo F 3 months post presenting after syncopal event. Passed out on Saturday in the shower; felt lightheaded and lowered herself to the floor before briefly losing consciousness. Did not strike her head. Similar event today while on the toilet urinating; felt lightheaded and like she was going to pass out, was able to lower herself to the floor and again did not strike her head. Has had intermittent vaginal bleeding that has not ceased entirely since delivery; saw OB today and patient reports she had a transvaginal ultrasound which showed no retained products of conception. Had iron studies through her PCP which showed low iron and ferritin and she is scheduled to start iron infusions. Miniminal bleeding since her OB visit today. No other overt source of bleeding. No chest pain or shortness of breath with these events. No family history of congential cardiac arythmia or sudden unexpected at a young age. No headache, neck pain, vertigo, double vision, numbness, or weakness. She is otherwise in her ususal state of health with no fevers, chills, rash, nausea, vomiting, or other concerns. Related Data Home Medications ?Medication ?Instructions ?Recorded ?Confirmed escitalopram oxalate 5 mg tablet 10 mg PO DAILY 02/01/25 clindamycin HCl 300 mg capsule 300 mg PO Q6H 02/01/25 02/01/25 (Cleocin HCl) Allergies Allergy/AdvReac Type Severity Reaction Status Date / Time Sulfa (Sulfonamide Allergy Skin Rash Verified 02/01/25 17:52 Antibiotics) tramadol Allergy Nausea Verified 02/01/25 17:52 General Stated Complaint: Dizzy/Sync DOMINIQUE: 3 Review of Systems Narrative: see HPI Exam Narrative Exam Narrative: General: Alert, well appearing, well nourished, in no acute distress. Head: Normocephalic, atraumatic Neck: Trachea midline, ?Neck supple. ENT: ?MMM.? No oropharygeal lesions or exudate. Cardiac: ?RRR, no murmurs appreciated Resp: No respiratory distress. CTAB. Abd: ?Soft, non-distended, nontender Extremities: ?No deformities.? No peripheral edema. BLE symmetric, no swelling. Neuro: ? GCS 15.? PERRL.? EOMI.? Fluent speech, no dysarthria. Motor- 5/5 strength symmetric bilateral upper and lower extremities Sensation- ?Intact to light touch and symmetric multiple dermatomes including upper and lower extremities Coordination- No dysmetria on finger to nose Reflexes- 2/4 achilles & patellar, no clonus Gait/station: ?Normal stance.? No truncal ataxia. Steady gait with equal normal steps CRANIAL NERVES: II: Pupils equal and reactive, III, IV, : EOM intact, no gaze preference or deviation, no nystagmus. V: normal sensation in V1, V2, and V3 segments bilaterally VII: no asymmetry, no nasolabial fold flattening VIII: normal hearing to speech IX, X: normal palatal elevation, no uvular deviation XI: 5/5 head turn and 5/5 shoulder shrug bilaterally XII: midline tongue protrusion Course Vital Signs Vital signs: Vital Signs Temperature 37.2 C 02/01/25 17:49 Pulse 80 02/01/25 17:49 Respiratory Rate 16 02/01/25 17:49 Blood Pressure 116/70 02/01/25 17:49 Pulse Oximetry 98 02/01/25 17:49 Temperature 37.2 C 02/01/25 17:49 Pulse 80 02/01/25 17:49 Respiratory Rate 16 02/01/25 17:49 Blood Pressure 116/70 02/01/25 17:49 Pulse Oximetry 98 02/01/25 17:49 Oxygen Delivery Method Room Air 02/01/25 17:49 Oxygen Flow Rate 0 02/01/25 17:49 Pain Level 0 02/01/25 17:49 Medical Decision Making 24yo F 3 months post presenting after syncopal event; felt lightheaded on the toilet and lowered herself to the floor before losing consciousness. Similar event Saturday in the shower. Known low iron and ferritin; scheduled to start infusions this week. Has had persistent occasional post bleeding and was seen by OB for this today (visit note reviewed) with reassuring US and vaginal exam (pt declines repeat exam in the ED today which is reasonable). Vital signs reassuring on arrival. Well appearing on exam, normal cardiopulmonary and neurologic exam. Description of events consistent with vasovagal/situational syncope; unlikely cardiogenic or neurogenic. Low iron likely contributing. Will get EKG & labs to further evaluate, give IVF bolus while awaiting results of workup. PERC negative; would not send dimer or otherwise workup pulmonary embolism. -EKG NSR, appropriate intervals, no ST segment or T wave abnormalities to suggest occlusive OR, not suggestive of Brug[place], long QT, WpW, HOCM, or ARVD -Orthostatic vital signs without orthostasis -Labs reviewed as below, CBC reassuring with no leukocytosis or anemia, CMP with no actionable abnormalities, Mg, normal. On reassessment she is well appearing with normal vital signs. Ambulated in the department steadily with lightheadedness. Appropriate for PCP followup. Reviewed situations likely to bring on symptoms and advised caution in these settings. Discharged home; discharge instructions and return precuations were reviewed with patient who verbalized understanding. All questions were answered and she is in full agreement with the plan. Medical Records Medical records reviewed: Yes I reviewed the patient's medical records. Lab Data Lab results reviewed: Yes I reviewed the patient's lab results. Labs: Laboratory Tests Range/Units 02/01/25 19:30 WBC (4.4-10.8) 10^3/uL 7.07 RBC (3.93-5.22) 10^6/uL 4.63 Hgb (11.2-15.7) g/dL 13.0 Hct (36.0-46.0) % 40.2 MCV (80-95) fL 87 MCH (27.0-33.0) pg 28.1 MCHC (32.0-36.0) % 32.3 RDW (11.7-14.6) % 13.6 Plt Count (130-400) 10^3/uL 328 MPV (8.0-11.0) fL 9.3 Immature Gran % % 0.1 Neutrophils % % 48.5 Lymphocytes % % 41.9 Monocytes % % 6.5 Eosinophils % % 2.4 Basophils % % 0.6 Nucleated RBC % (0.0-0.3) % 0.0 Absolute Neutrophils (1.2-6.7) 10^3/uL 3.43 Absolute Lymphocytes (1.2-3.4) 10^3/uL 2.96 Absolute Monocytes (0.1-0.8) 10^3/uL 0.46 Absolute Eosinophils (0.0-0.7) 10^3/uL 0.17 Absolute Basophils (0.0-0.2) 10^3/uL 0.04 Sodium (136-145) mmol/L 140 Potassium (3.5-5.1) mmol/L 4.0 Chloride (98-107) mmol/L 101 Carbon Dioxide (21.0-32.0) mmol/L 30.1 Anion Gap (3-11) mmol/L 8.9 BUN (7-18) mg/dL 15 Creatinine (0.55-1.02) mg/dL 0.7 Est GFR (CKD-EPI 2020) (mL/min/1.73m2) 123.01 Glucose (74-106) mg/dL 83 Calcium (8.5-10.1) mg/dL 9.1 Magnesium (1.8-2.4) mg/dL 2.2 Total Bilirubin (0.2-1.0) mg/dL 0.2 AST (15-37) U/L 26 ALT (14-59) U/L 44 Alkaline Phosphatase (46-116) U/L 75 Total Protein (6.4-8.2) g/dL 7.5 Albumin (3.4-5.0) g/dL 4.2 ABO/Rh AB Positive Antibody Screen NEGATIVE PFSH All Active Problems Syncope (Chronic) Syncope (Chronic) Encounter for screening for cervical cancer (Acute) Mastitis (Acute) Right ovarian cyst (Acute) 4.4 cms Vaginal bleeding (Acute) Encounter for care of lactating mother (Acute) Migraine (Chronic) ADHD (Acute) Marijuana use (Acute) Medical History (Updated 02/01/25 @ 21:50 by Belkis Chaudhari MD) Susceptible to varicella (non-immune), currently Term delivered Vaginal discharge PROM (premature rupture of membranes) Pruritus of in second trimester Eating disorder Depressive disorder Generalized anxiety disorder with panic attacks GERD (gastroesophageal reflux disease) Bipolar disorder Surgical History History of wisdom tooth extraction History of cholecystectomy Family History (Updated 11/27/24 @ 12:09 by April Morales CNM) Mother Depression History of heart valve repair after rheumatic fever Migraine Lymphoma diagnosed 2024 Father Depression Sister Migraine Social History (Updated 09/28/24 @ 13:15 by Elise Arana RN, RN) Smoking/Tobacco Use Status: Never Smoking risk assessment performed?: Yes Alcohol Intake: never Drug use: Daily Substance use type: marijuana Details: 2-4 hits a day when nauseous 06/06/24 Do you feel safe at home: Yes Do you feel safe in your relationship?: Yes Female Reproductive History Menstrual Age of Menarche: 12 control method: none History History 3 Para 1 Hx # Term Pregnancies 1 Multiple births 0 Hx # Pregnancies 0 Ectopic pregnancies 0 AB induced 0 Hx Number of Living Children 1 AB spontaneous 2 Past Pregnancies Del. Date GA/Weeks # Preg Succ Route Wgt Sex Labor Lgth Anesth esia Location [facility] 11/09/24 37 No Yes vaginal 2806.603 g Male 20hrs 2min PRICILLA [place] Delivery Date: 11/09/24 Last Updated by: Mary Butcher LPN decels starting with pitocin; also during late labor
[2025-02-01 19:42] LABS: Abs Immature Grans 0.01 10^3/uL (0.0-0.06); HCT 40.2 % (36.0-46.0); HGB 13.0 g/dL (11.2-15.7); Immature Grans % 0.1 %; MCH 28.1 pg (27.0-33.0); MCHC 32.3 % (32.0-36.0); MCV 87 fL (80-95); MPV 9.3 fL (8.0-11.0); Platelet Count 328 10^3/uL (130-400); RBC 4.63 10^6/uL (3.93-5.22); RDW 13.6 % (11.7-14.6); RDW-SD 43.1 fL; WBC 7.07 10^3/uL (4.4-10.8)
[2025-02-01] MEDS: Normal Saline 1,000 ML 1000 ML IV (20:05)
[2025-02-01 20:06] LABS: ALT 44 U/L (14-59); AST 26 U/L (15-37); Albumin 4.2 g/dL (3.4-5.0); Alkaline Phosphatase 75 U/L (46-116); Anion Gap 8.9 mmol/L (3-11); BUN 15 mg/dL (7-18); Bilirubin, Total 0.2 mg/dL (0.2-1.0); CO2 30.1 mmol/L (21.0-32.0); Calcium 9.1 mg/dL (8.5-10.1); Chloride 101 mmol/L (98-107); Estimated GFR 123.01 (mL/min/1.73m2); Glucose 83 mg/dL (74-106); Magnesium 2.2 mg/dL (1.8-2.4); Potassium 4.0 mmol/L (3.5-5.1); Sodium 140 mmol/L (136-145); Total Protein 7.5 g/dL (6.4-8.2)
== END 2025-02-01 22:14 | disposition home or self-care (01) ==
PROVIDERS: Emergency Provider Student in an Organized Health Care Education/Training Program; PCP Internal Medicine
DX: R55 Syncope and collapse
CPT/HCPCS: 36415; 80053; 81025; 86850; 86900; 86901; 93005; 96360; 99284; 83735; 85025; 93010; 99283